=== PATIENT | male | born 1955 | race Caucasian/White ===

== ENCOUNTER → 2016-12-22 | Outpatient (CLI) | payer BC ==
[2016-12-22 08:47] LABS: Blood Urea Nitrogen 18 mg/dL (9-20); Non-African American GFR(MDRD) >60 (>60 ml/min/1.73 sqM)
--- NOTE | 2016-12-22 09:54 | CT ---
EXAMINATION TYPE: CT ChestAbdPelvis w con DATE OF EXAM: 12/22/2016 9:26 AM COMPARISON: CT chest 07/11/2016 HISTORY: Lung CA CT DLP: 552.6 mGycm CONTRAST: CT scan of the chest, abdomen and pelvis is performed with Oral Contrast and with IV Contrast, patien t injected with 100 mL of Omnipaque 300. CT Chest: LUNGS: There is confluent nodular density within the right lung apex measuring 1.2 cm and appears to have been present previously may reflect an area of scarring. Bandlike area of infiltrate seen previo usly within the right mid lung zone has resolved. Mild basilar compressive atelectasis seen. Emphysem atous changes noted. MEDIASTINUM: There is dramatic improvement in mediastinal adenopathy including the right paratracheal region with near complete resolution. Near-complete resolution pretracheal adenopathy. Near-complete resolution AP window adenopathy. Markedly improved subcarinal adenopathy currently measuring 1.9 cm versus 2.3 cm previously. HILAR STRUCTURES: Marked reduction in right hilar adenopathy with lymph node measuring 1.8 cm versus previous conglomerate mass measuring 4.9 cm. OTHER: No significant abnormality. CONTRAST CT ABDOMEN AND PELVIS FINDINGS: LIVER/GB: No calcified gallstones. No space occupying hepatic lesion. Biliary tree is of normal ca liber. PANCREAS: No inflammation. No distinct mass. SPLEEN: No splenic enlargement. No lesion seen. ADRENALS: No nodule. No thickening. KIDNEYS/BLADDER: No hydronephrosis. No nephrolithiasis. No disctinct renal mass. BOWEL: Normal appendix. Normal bowel caliber. No inflammation. GENITAL ORGANS: No gross abnormality. LYMPH NODES: No greater than 1cm abdominal or pelvic lymph nodes are appreciated. AORTA: No significant abnormality. OSSEOUS STRUCTURES: No significant abnormality is seen. OTHER: No significant additional abnormality is seen. IMPRESSION: 1. Dramatic improvement in mediastinal and right hilar adenopathy as well as bandlike area of infiltr ate right midlung zone. 2. Right apical nodular density is likely in the basis of parenchymal scar.
== END | disposition home or self-care (01) ==
LOC: RADCTMAIN 08:01
PROVIDERS: ATTEND Internal Medicine Hematology & Oncology
DX: C34.90 Malignant neoplasm of unspecified part of unspecified bronchus or lung (principal); R59.1 Generalized enlarged lymph nodes
CPT/HCPCS: 82565; 84520; 71260; 74177; 36415; Q9967

== ENCOUNTER → 2017-01-10 | Outpatient (CLI) | payer BC ==
--- NOTE | 2017-01-10 21:52 | MR ---
EXAMINATION TYPE: MR brain wo/w con DATE OF EXAM: 01/10/2017 7:33 PM COMPARISON: MRI brain August 03, 2016. HISTORY: Lung cancer Jun 2016, R/O mets TECHNIQUE: Multiplanar, multisequence images of the brain and brainstem is performed without and with IV contras t, utilizing 13 mL intravenous MultiHance . FINDINGS: Diffusion weighted images demonstrate no evidence of a recent infarct or other diffusion ab normality. There is no worrisome extra-axial fluid collection. The ventricular system and cisternal spaces are normal in size and appearance. The brain volume is age appropriate. There are few scatte red foci of T2 hyperintensity seen throughout the white matter bilaterally. I estimate roughly 9-14 s cattered lesions. For reference there is elongated 6 mm right frontal periventricular lesion at level of lee radiata on axial image 21 that is stable. Midline structures demonstrate normal morphology. Somewhat empty sella is redemonstrated. The cranio cervical junction appears within normal limits. Post contrast images demonstrate no suspicious enhan cing intraparenchymal mass. Linear area of enhancement left superior cerebellar peduncle on axial aye ge 49 is suggestive of venous angioma. The dural venous sinuses appear patent. Some new dependent flu id right maxillary sinus is present on axial image 9 otherwise paranasal sinuses are clear. The globe s are intact bilaterally. IMPRESSION: 1. No new enhancing intraparenchymal foci are seen to suggest new intraparenchymal metastatic disease . 2. Mild nonspecific white matter changes presumed on basis of product of chronic small vessel ischemi c change felt stable. 3. Possible new right acute maxillary sinusitis, clinical correlation advised.
== END ==
LOC: RADMRIMAIN 18:27
PROVIDERS: ATTEND Radiology Radiation Oncology
DX: G93.9 Disorder of brain, unspecified (principal); C34.11 Malignant neoplasm of upper lobe, right bronchus or lung
CPT/HCPCS: 70553; A9577

== ENCOUNTER → 2017-03-28 | Outpatient (CLI) | payer BC ==
--- NOTE | 2017-03-28 09:17 | CT ---
EXAMINATION TYPE: CT ChestAbdPelvis w con DATE OF EXAM: 03/28/2017 COMPARISON: Previous study dated 12/22/2016. HISTORY: Lung CA CT DLP: 471.3 mGycm Automated exposure control for dose reduction was used. TECHNIQUE: Helical acquisition through the abdomen and pelvis was obtained without oral contrast but following the intravenous administration of 100 mL of Omnipaque 300. The data was formatted in the a xial, coronal and sagittal projections. FINDINGS: There is stable nodularity in the region of the right apex. The nodular mass measured previ ously at 11.8 mm this measured today at 14.4 mm. There is extensive emphysematous changes throughout the lungs. There are small bulla within the apice s. There has been improvement in the airspace disease in the right midlung. There is some minimal atelec tasis along the major fissure. No new parenchymal nodules are seen. There is no significant axillary adenopathy. There is minimal adenopathy in the aortopulmonary window . There has been continued reduction in the size of the right hilar adenopathy and on this examinatio n no definite adenopathy is seen. There is no pleural or pericardial fluid. The heart is not enlarged. Within the abdomen, the liver, spleen and gallbladder are normal. Both adrenal glands are normal. The pancreas is unremarkable. Both kidneys demonstrate function and appear morphologically normal. There is no significant retroperitoneal, iliac or inguinal adenopathy. There is some calcification within the prostate. The bladder is unremarkable. There is some diverticular change within the sigmoid colon. I do not see radiographic evidence of div erticulitis. Small bowel loops are normal. There is no free fluid and no free air identified. There is facet arthropathy in the lower lumbar spine. No bony destructive lesion is seen. IMPRESSION: 1. STABLE APICAL NODULAR DENSITY ON THE RIGHT. 2. UNCOMPLICATED DIVERTICULOSIS OF THE LEFT SIDE OF THE COLON. 3. CONTINUED IMPROVEMENT IN THE DEGREE OF ADENOPATHY IN THE RIGHT HILUM. 4. EMPHYSEMATOUS CHANGES THROUGHOUT THE LUNGS.
== END | disposition home or self-care (01) ==
LOC: RADCTMAIN 08:18
PROVIDERS: ATTEND Internal Medicine Hematology & Oncology
DX: C34.91 Malignant neoplasm of unspecified part of right bronchus or lung (principal); K57.90 Diverticulosis of intestine, part unspecified, without perforation or abscess without bleeding; J43.9 Emphysema, unspecified; R59.0 Localized enlarged lymph nodes
CPT/HCPCS: 71260; 74177; Q9967

== ENCOUNTER → 2017-07-11 | Outpatient (CLI) | payer OTHER ==
--- NOTE | 2017-07-11 09:46 | CT ---
EXAMINATION TYPE: CT ChestAbdPelvis w con DATE OF EXAM: 07/11/2017 COMPARISON: CT chest abdomen and pelvis March 28, 2017 and older study December 22, 2016. Original PET/CT O ctober 2015 HISTORY: Patient has no complaints at time of service. Follow up study for known lung CA. CT DLP: 471.3 mGycm. Automated Exposure Control for Dose Reduction was Utilized. CONTRAST: CT scan of the thorax, abdomen and pelvis is performed with oral and with IV Contrast, patient inject ed with 100 mL of Omnipaque 300. FINDINGS: LUNGS: There is moderate emphysematous change redemonstrated prominent in the upper lungs. There is r edemonstration of scarring and bleb formation in the right lung apex. More regular nodular scarring p osteriorly right lung apex near axial image 9 is unchanged from prior study, some residual neoplasm a t this level cannot be excluded measuring for reference 10 x 7 mm centrally, some abnormal hypermetab olic uptake was present on PET/CT where this level. Degree of soft tissue is improved from prior PET/ CT. There is persistent linear scarring in the right midlung. No new concerning parenchymal nodule or mass is present. No pleural effusion or pneumothorax is seen bilaterally. Tracheobronchial tree is p atent. MEDIASTINUM: There is local recurrence with new right paratracheal heterogeneous enhancing adenopathy measuring 2.0 x 1.5 cm on axial image 16 and coronal image 38. There is stable 1.6 x 1.0 cm right hi lar lymph node on axial image 23. There is stable irregular soft tissue pericarinal level extending a nterior to right lung bronchus on axial image 21 at area of large neoplasm on PET/CT. No cardiomegaly or pericardial effusion is seen. OTHER: No additional significant abnormality is seen. LIVER/GB: No significant abnormality is appreciated. PANCREAS: No significant abnormality is seen. SPLEEN: No significant abnormality is seen. ADRENALS: No significant abnormality is seen. KIDNEYS: No significant abnormality is seen. BOWEL: The oral contrast reaches level of cecum. There is no suspicious small or large bowel dilatati on. There is some contrast filled dilatation of the stomach. The amount of fecal material is somewhat prominent throughout the colon. Patient has very little intra-abdominal fat making evaluation bowel somewhat suboptimal. GENITAL ORGANS: Central zone calcifications are redemonstrated in normal size prostate gland. LYMPH NODES: No greater than 1cm abdominal or pelvic lymph nodes are appreciated. OSSEOUS STRUCTURES: There is facet arthropathy in the lower lumbar spine redemonstrated. OTHER: There is moderate mixed plaque in the mid to distal aorta extending into pelvic branch vessels . IMPRESSION: 1. Neoplastic recurrence is felt present as there is new right paratracheal heterogeneous enhancing m ass or adenopathy. 2. Incidental note is made of fairly moderate diffuse colonic fecal stasis. No bowel obstruction is s een.
== END | disposition home or self-care (01) ==
LOC: RADCTMAIN 08:03
PROVIDERS: ATTEND Internal Medicine Hematology & Oncology
DX: C34.91 Malignant neoplasm of unspecified part of right bronchus or lung (principal)
CPT/HCPCS: 71260; 74177; Q9967

== ENCOUNTER → 2017-08-20 | Outpatient (CLI) | payer OTHER ==
--- NOTE | 2017-08-20 16:03 | PE ---
EXAMINATION TYPE: PET CT fusion skull to thigh DATE OF EXAM: 08/20/2017 CLINICAL HISTORY: Lung cancer progress study. Completed chemotherapy and radiation treatment in 2015. TECHNIQUE: Following the intravenous administration of 14.844 mCi of F-18 FDG, whole body images ar e performed from the skull base to the midthigh. Images are reviewed on the computer in the coronal, axial, and sagittal planes. Reconstructed rotating images are created on independent workstation an d reviewed on the computer. A non-contrast CT is performed in conjunction with the PET scan. COMPARISON: Prior PET/CT August 07, 2016. Most recent CT chest abdomen and pelvis July 11, 2017 . FINDINGS: SKULL BASE AND NECK: No suspicious hypermetabolic uptake in the neck is identified. CHEST, MEDIASTINUM, AND HILAR REGION: There is background moderate emphysematous change redemonstrate d. There is some increased opacity felt to reflect scarring or posttreatment change in the right lung apex redemonstrated. No suspicious hypermetabolic uptake at this level is present. Corresponding to recent CT there is right paratracheal mass measuring 2.1 x 1.7 cm on axial image 79 that shows hypermetabolic uptake, max SUV is 6.7. Additional prominent lymph nodes right hilar region and pericarinal/subcarinal level do not show abnormal hypermetabolic uptake on current study. No additional areas of suspicious hypermetabolic uptake are identified currently. ABDOMEN AND PELVIS: No suspicious hypermetabolic uptake is seen in the abdomen or pelvis. Normal excr etion in the collecting systems, ureter, and bladder is noted. OSSEOUS STRUCTURES: No suspicious hypermetabolic uptake is seen in osseous structures. OTHER CT: There is moderate calcified plaque in distal abdominal aorta extending into iliac branch ve ssels. Some central zone calcifications are seen in prostate gland. Scattered pelvic phleboliths are redemon strated. There is facet arthropathy lower lumbar spine redemonstrated. Patient is once again noted to have little intra-abdominal fat. IMPRESSION: Local neoplastic recurrence right paratracheal region is confirmed as suspected on recent CT.
== END ==
LOC: RADPETMAIN 12:30
PROVIDERS: ATTEND Internal Medicine Hematology & Oncology
DX: C34.91 Malignant neoplasm of unspecified part of right bronchus or lung (principal)
CPT/HCPCS: 78815; A9552

== ENCOUNTER → 2017-12-14 | Outpatient (CLI) | payer OTHER ==
--- NOTE | 2017-12-14 13:40 | CT ---
EXAMINATION TYPE: CT ChestAbdPelvis w con DATE OF EXAM: 12/14/2017 COMPARISON: 10/04/2017 and 08/20/2017 HISTORY: 62-year-old male follow-up Lung CA. Patient completed chemoradiation in August 2016. TECHNIQUE: Contiguous axial scanning of the chest, abdomen, and pelvis performed with IV Contrast, pa tient injected with 100 mL of Omnipaque 300. Delayed images through the kidneys were obtained. Devine l/sagittal reconstructions performed. CT DLP: 1172 mGycm Automated exposure control for dose reduction was used. FINDINGS: Chest: The heart is normal size without pericardial effusion. Aorta is normal caliber with mild atherosclerotic arch calcifications and conventional arch vessel br anching anatomy. The previous site of treated disease along the right paratracheal region shows similar mild soft tiss ue thickening as compared to 10/04/2017. Right-sided perihilar bronchovascular soft tissue thickening remains unchanged probably relating to radiation therapy change. However, there is a new right suprahilar right upper lobe pulmonary nodule measuring 1.3 cm in the pr evious right midlung pulmonary nodule shows interval enlargement now measuring 1.8 cm versus 7 mm, pr eviously. Interstitial densities and patchy groundglass extending from the right hilum up into the apex is unch anged, likely post radiation therapy change. Left lung and pleural space are clear. ABDOMEN: Liver is upper limits of normal in size. No focal lesion or biliary ductal dilatation. Portal vein is patent. Gallbladder, adrenal glands, kidneys, spleen, and pancreas appear within normal limits. Moderate atherosclerotic calcifications within the abdominal aorta and iliac arteries. Prominent maurilio on artifacts along the lower abdomen. No mesenteric or retroperitoneal lymphadenopathy identified There is moderate stool burden without pericolonic inflammatory change. Pelvis: Bladder is urine distended. Prostate gland is enlarged at 5.5 cm wide with central prostatic calcific ations. Pelvic phlebolith are noted. No abnormal fluid collection in the pelvis or pelvic lymphadenop athy seen. Bones: Degenerative changes left SI joint and lower lumbar spine. No osseous destructive process. IMPRESSION: 1. INTERVAL ENLARGEMENT OF THE PREVIOUS RIGHT MIDLUNG PULMONARY NODULE (NOW 1.8 CM VERSUS 7 MM, PREVI OUSLY). IN ADDITION, THERE IS A NEW RIGHT SUPRAHILAR PULMONARY NODULE MEASURING 1.3 CM. FINDINGS CONC ERNING FOR RECURRENCE/METASTATIC DISEASE. 2. THE PREVIOUS TREATED SITE OF RECURRENCE ALONG THE RIGHT PARATRACHEAL REGION IS UNCHANGED. 3. STABLE RIGHT-SIDED PERIHILAR BRONCHOVASCULAR THICKENING AND INTERSTITIAL CHANGES EXTENDING UP TO T HE RIGHT APEX LIKELY RELATED TO POSTTREATMENT CHANGE.
== END | disposition home or self-care (01) ==
LOC: RADCTMAIN 12:22
PROVIDERS: ATTEND Internal Medicine Hematology & Oncology
DX: C34.91 Malignant neoplasm of unspecified part of right bronchus or lung (principal); R91.1 Solitary pulmonary nodule; J98.09 Other diseases of bronchus, not elsewhere classified
CPT/HCPCS: 71260; 74177; Q9967

== ENCOUNTER → 2018-03-06 | Outpatient (CLI) | payer OTHER ==
[2018-03-06 07:42] LABS: Blood Urea Nitrogen 22 mg/dL (9-20)
--- NOTE | 2018-03-06 10:13 | CT ---
EXAMINATION TYPE: CT ChestAbdPelvis w con DATE OF EXAM: 03/06/2018 COMPARISON: CT chest abdomen and pelvis December 14, 2017 and older studies. PET/CT August 20, 2017 and older studies HISTORY: Head chemotherapy 1 month ago Follow up study for known lung CA. CT DLP: 431.2 mGycm. Automated Exposure Control for Dose Reduction was Utilized. CONTRAST: CT scan of the thorax, abdomen and pelvis is performed with IV Contrast, patient injected with 100 mL of Isovue 300. FINDINGS: LUNGS: There is background chronic emphysematous change redemonstrated most prominent in the apices. There is right apical and upper lung scarring most prominent centrally. There is increase in size in spiculated nodule periphery of the right upper lobe measuring 1.9 x 1.0 cm axial image 19. There is n ew 11 x 5 mm nodule central to this axial image 19. Left lung remains clear. No pleural effusion or p neumothorax is seen. MEDIASTINUM: There is interval worsening of right hilar malignancy with irregular tissue invading med iastinum measuring approximately 5.7 x 4.5 cm axial image 23, there is encasement of right lower lobe bronchus identified. Craniocaudal length is likely close to 9.0 cm coronal image 49 with extensive r ight infrahilar component now present. Mediastinal Invasion to subcarinal region is felt present. Sig nificant progression from most recent CTs and PET/CT is felt present. There is new nodular suspicious studding right mediastinum or more likely pleural lesion adjacent to posterior aspect of the right a trium measuring 1.9 x 1.4 cm axial image 33. There is new small to borderline moderate-sized pericardial effusion. No cardiomegaly is present. OTHER: Small degree of bilateral gynecomastia is redemonstrated. LIVER/GB: No significant abnormality is appreciated. PANCREAS: No significant abnormality is seen. SPLEEN: No significant abnormality is seen. ADRENALS: No significant abnormality is seen. KIDNEYS: No significant abnormality is seen. BOWEL: No significant abnormality is seen. GENITAL ORGANS: No gross abnormality seen. LYMPH NODES: No greater than 1cm abdominal or pelvic lymph nodes are appreciated. Nonspecific promine nt but subcentimeter right groin lymph nodes are seen near axial image 117. OSSEOUS STRUCTURES: There is facet arthropathy lower lumbar levels.. OTHER: There is moderate calcified plaque of aorta extending into pelvic branch vessels. IMPRESSION: Marked interval progression from most recent CT with significant enlargement in right hil ar mass/adenopathy now measuring almost 9 cm craniocaudal dimension. Mediastinal invasion is present. There is progression in size of the peripheral right upper lobe nodule. There is new nodularity iden tified.
== END | disposition home or self-care (01) ==
LOC: RADCTMAIN 06:51
PROVIDERS: ATTEND Internal Medicine Hematology & Oncology
DX: C34.91 Malignant neoplasm of unspecified part of right bronchus or lung (principal); R91.8 Other nonspecific abnormal finding of lung field; Z92.21 Personal history of antineoplastic chemotherapy
CPT/HCPCS: 82565; 84520; 71260; 74177; 36415; Q9967

== ENCOUNTER → 2018-05-19 | Outpatient (CLI) | payer OTHER ==
[2018-05-19 12:03] LABS: Blood Urea Nitrogen 19 mg/dL (9-20)
--- NOTE | 2018-05-19 15:35 | CT ---
EXAMINATION TYPE: CT ChestAbdPelvis w con DATE OF EXAM: 05/19/2018 INDICATION: Small cell lung CA COMPARISON: 03/06/2018 CT DLP: 414.7 mGycm CONTRAST: Performed with Oral Contrast and with IV Contrast, patient injected with 100 ml mL of Isovue 300. TECHNIQUE: Axial images at 5 mm thick sections. Reconstructed images in the coronal plane. Delayed images through the kidneys. FINDINGS: CT CHEST: Portion of the thyroid visualized is normal. Emphysematous changes are present. There is a right upper lobe mass may have 1.6 x 2.5 cm. This is sl ightly larger than the comparison. Diffuse soft tissue swelling is in the perihilar region. Some fibr osis may be within the right perihilar region. There is a mass in the right infrahilar region measuri ng 2.8 x 3.0 cm on the current exam lung windows. Series 4 image 30. This is larger than the 2.3 x 2. 7 cm previously. Some pneumonitis changes in the posterior mid left lung. Series 4 image 30. Small am ount of increased densities in the posterior right lung. Series 4 image 35. There are some additional scattered smaller areas of pneumonitis change in the left midlung, series 4 image 33. Metastatic di sease at these levels is not excluded. Additional consolidative pneumonitis is in the right lung base . Metastatic disease should be considered as well. Some mediastinal lymph nodes may be present in the pretracheal space and subcarinal space measuring 1 .5 and 1.0 cm in size. This is better visualized than comparison. Series 3 image 27. The ascending aorta diameter at the level of the main pulmonary artery is 3.3 cm. The main pulmonary artery diameter at the bifurcation is 2.[address] ABDOMEN: Liver: Normal Spleen: Normal Pancreas: Normal Adrenal glands: The adrenal glands are normal. Gallbladder: Normal Kidneys: No masses are evident. No hydronephrosis is present. No cysts are present. Delayed images were obtained through the kidneys, which remain unremarkable. Aorta: Vascular calcification is within the aorta. AP diameter of the mid abdominal aorta is 1.9 cm. Inferior vena cava: Normal. CT PELVIS: Loops of bowel within the abdomen and pelvis are normal. There are loops of bowel which are incom pletely distended or lack oral contrast limiting their evaluation. Appendix: Not identified. No dilated tubular structures or inflammatory changes are evident. Urinary bladder: Normal. Genitourinary structures: Prostate contains calcification. Prostate borders are somewhat indistinct. Osseous structures: A mixed lytic sclerotic lesion adjacent to the posterior right sacroiliac joint w ithin the ileum may be present. Series 3 image 95 bone windows. This was present previously and appea rs stable. Note is made of facet degenerative changes. Some increased sclerosis may be within the pos terior right third rib and fourth rib. Metastatic disease is not excluded there. This however appears stable from comparison. IMPRESSIONS: 1. Increasing size nodularity right infrahilar and right perihilar soft tissue densities. 2. Continued mediastinal soft tissue diffuse density suspicious for neoplasm which is unchanged. 3. Underlying enlarged lymphadenopathy within the mediastinum may be visualized on the current exam. 4. Increasing infiltrative opacities in the left lung and a large infiltrative process at the right l christelle base. Neoplastic processes should be considered. Other etiologies however including an infectious etiology would be within the differential.
== END | disposition home or self-care (01) ==
LOC: RADCTMAIN 11:10
PROVIDERS: ATTEND Internal Medicine Hematology & Oncology
DX: C34.91 Malignant neoplasm of unspecified part of right bronchus or lung (principal); R59.0 Localized enlarged lymph nodes; R91.8 Other nonspecific abnormal finding of lung field
CPT/HCPCS: 82565; 84520; 71260; 74177; 36415; Q9967

== ENCOUNTER → 2018-08-21 | Outpatient (CLI) | payer OTHER ==
--- NOTE | 2018-08-21 13:18 | CT ---
EXAMINATION TYPE: CT ChestAbdPelvis w con DATE OF EXAM: 08/21/2018 COMPARISON: 05/19/2018 and 03/06/2018 HISTORY: 62-year-old male follow up of lung cancer TECHNIQUE: Contiguous axial scanning of the chest, abdomen, and pelvis performed with IV Contrast, pa tient injected with 100 mL of Isovue 300. Delayed images through the kidneys were obtained. Coronal/s agittal reconstructions performed. CT DLP: 477.7 mGycm Automated exposure control for dose reduction was used. FINDINGS: Chest: Heart normal size without pericardial effusion. Aorta normal caliber with mild atherosclerotic arch calcifications and conventional arch vessel [facility] anatomy. Redemonstrated mid to lower right paratracheal and contiguous right perihilar soft tissue thickening overall similar to slightly improved as compared to the 03/06/2018 exam. Volume loss with peribronchia l opacity extending up along the right suprahilar region to the right apex is unchanged and suggests post radiation therapy change. However, the abnormal soft tissue mass obliterating the bronchus base atelectasis in the right lower lobe is redemonstrated. It is lobulated in shape measuring up to 4.3 cm wide and 3.2 cm AP (versus 3. 3 cm wide and 2.4 cm AP on 05/19/2018). Approximately 2.7 x 2.3 cm on 03/06/2018. Patchy and confluent areas of groundglass in the right greater than left lower lobes has largely brittaney red with some residual tree-in-bud opacities especially in the right lower lobe. Some minimal groundg lass nodularity remains at the posterior right costophrenic angle. The soft tissue thickening along t he superior aspect of the right major fissure at the upper to mid lung level shows improvement. No pleural effusion. Moderate underlying COPD. ABDOMEN: Small hiatal hernia. No focal liver lesion or biliary ductal dilatation. Portal venous system is patent. Gallbladder, adrenal glands, kidneys, spleen, and pancreas appear within normal limits. Moderate atherosclerotic calcifications infrarenal abdominal aorta. No dilated small bowel, free fluid, or free air. No mesenteric or retroperitoneal lymphadenopathy. Moderate stool burden. No pericolonic inflammatory change. Pelvis: Bladder urine distended. Central prosthetic calcifications. Prostate gland measures 5.0 cm wide. No a bnormal fluid collection in the pelvis or pelvic lymphadenopathy identified. Pelvic phleboliths. Bones: Mild degenerative changes at the hips. Degenerative changes left SI joint. No osseous destructive pro cess seen. IMPRESSION: 1. INCREASED SOFT TISSUE BULK AND SIZE OF THE RIGHT LOWER LOBE MASS WHICH OBLITERATES THE BRONCHUS BA SALIS. This is now lobulated measuring up to 4.3 x 3.2 cm (versus 3.3 x 2.4 cm on 05/19/2018 and 2.7 x 2.3 cm on 03/06/2018). 2. Similar right paratracheal, right hilar, and right suprahilar soft tissue thickening with volume l oss and peribronchovascular opacity extending up to the right apex suggestive of posttreatment change . 3. Much of the patchy and confluent groundglass densities in the right greater than left lower lobes has resolved. There is some residual tree-in-bud and groundglass nodules that remain, particularly at the right base. This could represent some residual areas of pneumonitis or bronchiolitis. This can c ontinue to be reassessed at follow-up.
== END ==
LOC: RADCTMAIN 10:35
PROVIDERS: ATTEND Internal Medicine Hematology & Oncology
DX: C34.91 Malignant neoplasm of unspecified part of right bronchus or lung (principal)
CPT/HCPCS: 71260; 74177; Q9967

== ENCOUNTER → 2018-10-02 | Outpatient (CLI) | payer OTHER ==
--- NOTE | 2018-10-02 13:42 | CT ---
EXAMINATION TYPE: CT chest w con DATE OF EXAM: 10/02/2018 COMPARISON: Prior CT chest abdomen pelvis 08/21/2018 HISTORY: Lung cancer CT DLP: 280 mGycm Automated exposure control for dose reduction was used. CONTRAST: CT scan of the chest is performed with IV Contrast, patient injected with 100 mL of Isovue 300. FINDINGS: LUNGS: The right upper lobe lung mass is increased in size and now measures approximately 5.7 cm in t ransverse dimension abutting the MEDIASTINUM: There is level esophagus and left atrium, pulmonary vein on the right by approximately 4 cm x 4.6 cm and shows peripheral enhancement, mixed lower density centrally. There is a lobulated co ntour with extension towards the right hilum, abnormal soft tissue density present at the right hilar region similar to prior exam extending into the upper mediastinum adjacent to the trachea as on prio r. Interstitial changes are present in the upper lobe with some parenchymal consolidation, air bronch ograms compatible with probable post radiation therapy to the right hilum. Some scattered nodular den sities are subcentimeter in size are present in the right lower lobe. No pleural or pericardial effus ion. AORTA: No additional significant abnormality is seen. OTHER: No significant interval change. IMPRESSION: Interval progression of patient's right lower lobe lung mass with possible metastasis mo re peripherally.
== END ==
LOC: RADCTMAIN 11:34
PROVIDERS: ATTEND Internal Medicine Hematology & Oncology
DX: C34.91 Malignant neoplasm of unspecified part of right bronchus or lung (principal)
CPT/HCPCS: 71260; Q9967

== ENCOUNTER → 2018-12-18 | Outpatient (CLI) | payer OTHER ==
[2018-12-18 08:59] LABS: Blood Urea Nitrogen 22 mg/dL (9-20)
--- NOTE | 2018-12-18 10:50 | CT ---
EXAMINATION TYPE: CT ChestAbdPelvis w con DATE OF EXAM: 12/18/2018 COMPARISON: CT chest abdomen and pelvis August 21, 2018 and older CTs. PET/CT August 20, 2017. HISTORY: Follow up for known small cell lung CA. Originally diagnosed in 2016. CT DLP: 468.8 mGycm. Automated Exposure Control for Dose Reduction was Utilized. CONTRAST: CT scan of the thorax, abdomen and pelvis is performed with IV Contrast, patient injected with 100 mL of Isovue 300. FINDINGS: LUNGS: Persistent posterior right apical scarring extending inferiorly and medially. Spiculated right infrahilar neoplasm is diminished in size from most recent full body CT measuring roughly 2.3 x 1.4 cm on axial image 32 versus 4.3 x 2.4 cm prior study image 29. No new nodules or masses are evident. Left lung remains clear. No pleural effusion or pneumothorax is seen. MEDIASTINUM: There is persistent confluent right hilar soft tissue mass encasing right lung bronchus seen best near axial image 23 causing significant mass effect encasing the right pulmonary artery wit h persistent narrowing of right upper lung bronchi. No significant change in appearance near image 23 versus prior study. Suprahilar extension encases the draining azygos vein similar to prior. No cardi omegaly or pericardial effusion is seen. OTHER: Is stable small degree of bilateral gynecomastia LIVER/GB: No significant abnormality is appre ciated. PANCREAS: No significant abnormality is seen. SPLEEN: No significant abnormality is seen. ADRENALS: No significant abnormality is seen. KIDNEYS: No significant abnormality is seen. BOWEL: Oral contrast does not reach colonic level. No suspicious small or large bowel dilatation. GENITAL ORGANS: Central calcifications in prostate gland measuring upper limits of normal are redemon strated. Scattered bilateral pelvic phleboliths redemonstrated. LYMPH NODES: No greater than 1cm abdominal or pelvic lymph nodes are appreciated. OSSEOUS STRUCTURES: No significant abnormality is seen. OTHER: Moderate to severe calcified plaque of the infrarenal abdominal aorta extends into iliac branc h vessels. IMPRESSION: 1. Stable confluent right hilar adenopathy/neoplasm with mediastinal extension as detailed above. Imp roving right infrahilar/lower lobe central neoplasm/nodule. No new nodules or adenopathy identified. No new metastatic disease seen.
== END | disposition home or self-care (01) ==
LOC: RADCTMAIN 08:01
PROVIDERS: ATTEND Internal Medicine Hematology & Oncology
DX: C34.91 Malignant neoplasm of unspecified part of right bronchus or lung (principal)
CPT/HCPCS: 82565; 84520; 71260; 74177; 36415; Q9967

== ENCOUNTER → 2019-01-18 | Outpatient (CLI) | payer OTHER ==
--- NOTE | 2019-01-18 14:06 | XR ---
"EXAMINATION TYPE: XR chest 2V DATE OF EXAM: 01/18/2019 COMPARISON: 09/14/2016 TECHNIQUE: PA and lateral views submitted. HISTORY: Lung cancer and shortness of breath FINDINGS: There is a right lower lobe consolidation. Emphysematous changes involving the right lung apex with) tracheal soft tissue fullness. This may be related to previously noted CT findings of right hilar yulisa nopathy\\neoplasm with mediastinal extension. Area of lower lobe density appears new from the CT scan 12/18/2018. Report called to referring clinician. IMPRESSION: 1. Area of consolidation the right lower lobe appears new relative to the recent scan may represent d eveloping pneumonia. Underlying neoplasm not excluded. Right perihilar and right paratracheal soft ti ssue fullness appears similar to the reported findings noted by CT scan 12/18/2018. A Yellow level critical message alert has been initiated for Uri Jansen MD via the [employer] 36 0 | Critical Results System on 01/18/2019 2:03 PM. This message alert has been sent to Uri Jansen MD via the preferences provided by the clinician for the receipt of Radiology Critical Findings. [facility] ID [id number]."
== END | disposition home or self-care (01) ==
LOC: RADXRMAIN 13:33
PROVIDERS: ATTEND Internal Medicine Hematology & Oncology
DX: J18.1 Lobar pneumonia, unspecified organism (principal); R06.00 Dyspnea, unspecified; C34.91 Malignant neoplasm of unspecified part of right bronchus or lung; E03.9 Hypothyroidism, unspecified; E22.2 Syndrome of inappropriate secretion of antidiuretic hormone
CPT/HCPCS: 71046

== ENCOUNTER → 2019-01-22 | Outpatient (CLI) | payer OTHER ==
--- NOTE | 2019-01-22 09:17 | XR ---
EXAMINATION TYPE: XR chest 2V DATE OF EXAM: 01/22/2019 COMPARISON: 01/18/2019 TECHNIQUE: PA and lateral views submitted. HISTORY: Lung cancer FINDINGS: There is a right lower lobe consolidation. Emphysematous changes involving the right lung apex with) tracheal soft tissue fullness. This may be related to previously noted CT findings of right hilar yulisa nopathy neoplasm with mediastinal extension. Area of lower lobe density appears new from the CT scan 12/18/2018. Report called to referring clinician. Chronic deformity of the left clavicle. IMPRESSION: 1. Persistent right lower lobe consolidation with right perihilar soft tissue mass or adenopathy. Con solidation involving the right lung base may represent pneumonia Neoplasm not excluded.
== END | disposition home or self-care (01) ==
LOC: RADXRMAIN 08:19
PROVIDERS: ATTEND Internal Medicine Hematology & Oncology
DX: C34.91 Malignant neoplasm of unspecified part of right bronchus or lung (principal); E03.9 Hypothyroidism, unspecified; E22.2 Syndrome of inappropriate secretion of antidiuretic hormone; R06.00 Dyspnea, unspecified
CPT/HCPCS: 71046

== ENCOUNTER → 2019-04-09 | Outpatient (CLI) | payer OTHER ==
--- NOTE | 2019-04-09 13:32 | CT ---
EXAMINATION TYPE: CT ChestAbdPelvis w con DATE OF EXAM: 04/09/2019 COMPARISON: CT chest abdomen and pelvis December 18, 2018 and older CTs. PET/CT August 20, 2017 HISTORY: Lung CA follow up CT DLP: 495.3 mGycm. Automated Exposure Control for Dose Reduction was Utilized. CONTRAST: CT scan of the thorax, abdomen and pelvis is performed with oral and with IV Contrast, patient inject ed with 100 mL of Isovue 300. FINDINGS: LUNGS: Persistent posterior medial right apical scarring axial image 11 extending inferiorly and medi ally to the right hilar level where there is indistinct soft tissue narrowing right middle lobe bronc hus axial image 25 at infrahilar region and narrowing of right upper lobe bronchus axial image 19 all redemonstrated. Extension to the shawn axial image 20 remains present without significant interval change from most recent CT. There is new right lower lobe peribronchial wall thickening with low dens e nodularity measuring 2.1 x 1.1 cm on axial image 30 that shows marked inferior posterior and medial lobulated extension new from recent CT. MEDIASTINUM: There are no new greater than 1 cm hilar or mediastinal lymph nodes. No cardiomegaly or pericardial effusion is seen. OTHER: Small degree of bilateral gynecomastia is redemonstrated LIVER/GB: No significant abnormality is appreciated. PANCREAS: No significant abnormality is seen. SPLEEN: No significant abnormality is seen. ADRENALS: No significant abnormality is seen. KIDNEYS: No significant abnormality is seen. BOWEL: Oral contrast extends to the proximal transverse colon. No suspicious small or large bowel dil atation. Some prominence of fecal material in the rectum. GENITAL ORGANS: No gross abnormality seen. LYMPH NODES: No greater than 1cm abdominal or pelvic lymph nodes are appreciated. OSSEOUS STRUCTURES: Facet arthropathy lower lumbar spine. OTHER: Moderate calcified plaque of the distal abdominal aorta extends into iliac branch vessels. IMPRESSION: Progression of right infrahilar low dense nodularity or masslike consolidation worrisome for local neoplastic progression. Consider repeat PET/CT to further evaluate.
== END | disposition home or self-care (01) ==
LOC: RADCTMAIN 09:41
PROVIDERS: ATTEND Internal Medicine Hematology & Oncology
DX: C34.91 Malignant neoplasm of unspecified part of right bronchus or lung (principal)
CPT/HCPCS: 71260; 74177; Q9967

== ENCOUNTER → 2019-06-09 | Outpatient (CLI) | payer OTHER ==
--- NOTE | 2019-06-11 14:08 | PE ---
Nuclear medicine PET/CT HISTORY: Right lung carcinoma, subsequent, C34.91 Patient received 12.8 mCi F-18 FDG intravenously in delayed scanning was performed from the skull bas e to the mid thighs. Localization and attenuation correction CT scan was performed. Correlation to prior chest CT 04/09/2019, prior nuclear medicine PET/CT 08/20/2017 neck and CHEST: There is no evidence for supraclavicular or cervical adenopathy. Abnormal soft tissue in the retrocaval pretracheal region extending to the right hilum is noted, this is progressed conor red to prior PET/CT, there is extension of soft tissue into the right upper lobe along the pleural ma rgin medially, there is associated hypermetabolic uptake present within the suprahilar soft tissue on the right, SUV is 5.6. There is a satellite nodule present in the right mid lung measuring approxima tely 14 mm, SUV is 3.4. Infrahilar nodularity is also present extending into the right lower lobe, MIMS V approximately 5.1, there may be mucus plugging in the right lower lobe, soft tissue encases segment al bronchi. No pleural or pericardial effusion. ABDOMEN: No suspicious hypermetabolic uptake. No evident adrenal mass. No retroperitoneal adenopathy or liver mass. Osseous structures show no suspicious uptake. IMPRESSION: Findings compatible with recurrence in the right lung.
== END | disposition home or self-care (01) ==
LOC: RADPETMAIN 10:26
PROVIDERS: ATTEND Internal Medicine Hematology & Oncology
DX: C34.31 Malignant neoplasm of lower lobe, right bronchus or lung (principal)
CPT/HCPCS: 78815; A9552

== ENCOUNTER → 2019-09-17 | Outpatient (CLI) | payer OTHER ==
[2019-09-17 07:59] LABS: African American GFR (CKD) >90 (>60 ml/min/1.73 sqM); Blood Urea Nitrogen 13 mg/dL (9-20); Non-African American GFR(CKD) >90 (>60 ml/min/1.73 sqM)
--- NOTE | 2019-09-17 10:13 | CT ---
EXAMINATION TYPE: CT ChestAbdPelvis w con DATE OF EXAM: 09/17/2019 COMPARISON: CT chest abdomen pelvis 04/09/[address] fusion 06/09/2019 HISTORY: Lung cancer CT DLP: 980 mGycm CONTRAST: CT scan of the chest, abdomen and pelvis is performed with Oral Contrast and with IV Contrast, patien t injected with 100 mL of Isovue 300. CT Chest: LUNGS: There is increasing right suprahilar mass measuring 5.9 x 3.6 x 3.3 cm with encasement of the right upper lobe bronchus and associated medial pleural thickening. Previous measurement is estimated at 2.6 x 2.2 cm. There is also an enlarging adjacent pulmonary mass measuring 2.7 x 2.2 cm versus 1. 1 x .7 cm. Enlarging right infrahilar pulmonary mass and measures 3.9 x 3.4 cm versus 1.2 x 1.5 cm. A dditional pulmonary nodules right lower lobe remains stable. Associated bronchiectasis seen. The left lung is clear. Mild right-sided volume loss. Upper lobe emphysematous change. MEDIASTINUM: Thoracic aorta is of normal caliber. The heart is not enlarged. Right paratracheal yulisa nopathy measures 1.3 x 2.3 cm versus 1.0 x 2.2 cm previously HILAR STRUCTURES: Right hilar adenopathy difficult to evaluate given the soft tissue mass component. OTHER: No significant abnormality. CONTRAST CT ABDOMEN AND PELVIS FINDINGS: LIVER/GB: No calcified gallstones. No space occupying hepatic lesion. Biliary tree is of normal ca liber. PANCREAS: No inflammation. No distinct mass. SPLEEN: No splenic enlargement. No lesion seen. ADRENALS: No nodule. No thickening. KIDNEYS/BLADDER: No hydronephrosis. No nephrolithiasis. No distinct renal mass. BOWEL: Normal appendix. Normal bowel caliber. No inflammation. GENITAL ORGANS: No gross abnormality. LYMPH NODES: No greater than 1cm abdominal or pelvic lymph nodes are appreciated. AORTA: No significant abnormality. OSSEOUS STRUCTURES: Sclerotic T2 segment noted. This is of uncertain etiology. Metastatic disease not excluded. OTHER: No significant additional abnormality is seen. IMPRESSION: 1. Ration of disease as noted with right suprahilar mass and adjacent mass noted. Right infrahilar ma ss is also enlarged in size with increasing right lower lobe nodular components and bronchiectasis. 2. Sclerotic T2 segment. Metastatic disease is not excluded.
== END | disposition home or self-care (01) ==
LOC: RADCTMAIN 07:03
PROVIDERS: ATTEND Internal Medicine Hematology & Oncology
DX: J47.9 Bronchiectasis, uncomplicated (principal); R91.8 Other nonspecific abnormal finding of lung field; C34.91 Malignant neoplasm of unspecified part of right bronchus or lung
CPT/HCPCS: 82565; 84520; 71260; 74177; 36415; Q9967 ×2

== ENCOUNTER → 2019-11-12 | Outpatient (CLI) | payer OTHER ==
[2019-11-12 12:41] LABS: African American GFR (CKD) >90 (>60 ml/min/1.73 sqM); Blood Urea Nitrogen 17 mg/dL (9-20); Non-African American GFR(CKD) >90 (>60 ml/min/1.73 sqM)
--- NOTE | 2019-11-12 15:23 | CT ---
EXAMINATION TYPE: CT ChestAbdPelvis w con DATE OF EXAM: 11/12/2019 COMPARISON: CT September 17, 2019 and multiple older CTs. PET CT June 09, 2019 HISTORY: Lung cancer follow up. CT DLP: 457.1 mGycm. Automated Exposure Control for Dose Reduction was Utilized. CONTRAST: CT scan of the thorax, abdomen and pelvis is performed with oral and with IV Contrast, patient inject ed with 100 mL of Isovue M300. FINDINGS: LUNGS: Background moderate underlying emphysematous change most prominent in the upper lungs is redem onstrated. There is persistent right hilar masslike consolidation invading mediastinum encasing right main stem bronchus axial image 20. The right midlung low dense mass axial image [address] is signific antly improved along fissure measuring 1.1 x 0.7 cm currently. Neoplastic extension medial suprahilar region with ill-defined consolidation axial image 16 shows slightly less prominent appearance to jorge or study image 14 measuring 5.3 x 2.7 cm current study versus 5.6 x 3.2 cm prior study. Some persiste nt right upper lung and middle lobe central bronchial narrowing axial images 19 and 25 respectively w ith improvement in right lower lobe nodule or neoplasm measuring 2.4 x 2.4 cm current study image 29 versus 4.0 x 3.4 cm prior study image 26. Lobulated neoplastic extension inferior to this is redemons trated and improved with moderate bronchiectasis and mucous plugging thought present stable or slight ly improved from prior. No new nodules or masses. Left lung remains clear. MEDIASTINUM: There are no new greater than 1 cm hilar or mediastinal lymph nodes. Neoplastic extens ion to level of shawn and invading subcarinal region is thought present from right hilar neoplasm. N o cardiomegaly or pericardial effusion is seen. LIVER/GB: No significant abnormality is appreciated. PANCREAS: No significant abnormality is seen. SPLEEN: No significant abnormality is seen. ADRENALS: No significant abnormality is seen. KIDNEYS: No significant abnormality is seen. BOWEL: Oral contrast reaches mid transverse colon. No suspicious small or large bowel dilatation. Hubert e prominence of fecal material in the rectum redemonstrated. GENITAL ORGANS: Central calcifications in prostate gland. Some prominence of the right pelvic gonadal vessels axial image 109 on current study is new from prior study. Etiology uncertain. LYMPH NODES: No greater than 1cm abdominal or pelvic lymph nodes are appreciated. OSSEOUS STRUCTURES: Demineralization with slight scoliotic curvature upper to mid thoracic spine. Fac et arthropathy lower lumbar spine. Old fracture left mid clavicle redemonstrated. OTHER: Small degree of bilateral subareolar gynecomastia redemonstrated. Moderate calcified plaque of the aorta extending into common iliac branch vessels. IMPRESSION: Positive treatment response as detailed above. Diminishing size neoplasm without new lucia picious mass or adenopathy.
== END | disposition home or self-care (01) ==
LOC: RADCTMAIN 11:54
PROVIDERS: ATTEND Internal Medicine Hematology & Oncology
DX: C34.91 Malignant neoplasm of unspecified part of right bronchus or lung (principal)
CPT/HCPCS: 82565; 84520; 71260; 74177; 36415; Q9967 ×2

== ENCOUNTER 2020-01-09 12:27 | Emergency (ER) | payer OTHER ==
[2020-01-09 12:36] VITALS: BP 137/87; PULSE 91; RESP 18; TEMP 97.7
[2020-01-09] MEDS ORDERED: LIDOCAINE 1% INJ 10MG/ML (20 ML MDV) SQ ONE (12:57)
--- NOTE | 2020-01-09 13:19 | XR ---
Left hand HISTORY: Left hand laceration 3 views of the left hand There is arthropathy present within the left hand. Bone mineralization is maintained. No evident frac ture or dislocation. No radiopaque foreign body. Lateral exam not optimally positioned. IMPRESSION: Osteoarthritis, no evident sequela due to patient's laceration.
--- NOTE | 2020-01-09 14:11 | ED ---
Wound/Laceration HPI - General Chief Complaint: Wound/Laceration Stated Complaint: Left hand laceration Time Seen by Provider: 01/09/20 12:44 Source: patient Mode of arrival: ambulatory Limitations: no limitations - History of Present Illness Initial Comments: Patient is a 64-year-old male presenting to the emergency Department with complaints of a laceration to the top of his left hand. Patient states he was using a metalsmith and he slipped, cutting of the dorsal aspect of his left hand. Patient denies being on blood thinners. He is currently receiving chemo once a week for lung cancer. He states his tetanus vaccine is up-to-date. Bleeding is controlled at this time with a bandage. He has no other complaints. Upon arrival to the ER,s vital signs are stable. - Related Data Home Medications Medication Instructions Recorded Confirmed Levothyroxine Sodium [Synthroid] 25 mcg PO DAILY 09/27/19 11/27/19 predniSONE 10 mg PO DAILY 09/27/19 11/27/19 HYDROcodone/APAP 5-325MG [[place] 1 tab PO Q6HR PRN 10/12/19 11/27/19 5-325] Previous Rx's Medication Instructions Recorded Acetaminophen Tab [Tylenol] 500 mg PO Q6HR PRN #0 tab 07/15/16 Calcium Carbonate [Tums] 1,000 mg PO QID PRN #0 chew 09/15/16 Cephalexin [Keflex] 500 mg PO BID 3 Days #6 cap 01/09/20 Allergies Allergy/AdvReac Type Severity Reaction Status Date / Time adhesive tape AdvReac Rash/Hives Verified 01/09/20 12:32 Review of Systems ROS Statement: Those systems with pertinent positive or pertinent negative responses have been documented in the HPI. ROS Other: All systems not noted in ROS Statement are negative. Past Medical History Past Medical History: Cancer, COPD Additional Past Medical History / Comment(s): R upper lung cancer. History of Any Multi-Drug Resistant Organisms: None Reported Past Surgical History: No Surgical Hx Reported Additional Past Surgical History / Comment(s): 07/15/16 bronchoscopy with bx. Past Anesthesia/Blood Transfusion Reactions: No Reported Reaction Past Psychological History: No Psychological Hx Reported Smoking Status: Current every day smoker Past Alcohol Use History: None Reported Past Drug Use History: Marijuana - Past Family History Father Family Medical History: Coronary Artery Disease (CAD) Additional Family Medical History / Comment(s): Dad in his late 70's from a complication after a hip fx. Sister(s) Family Medical History: Coronary Artery Disease (CAD) Mother Family Medical History: Coronary Artery Disease (CAD) Additional Family Medical History / Comment(s): Mother at the age of 80 yrs in a MVA. Daughter(s) Family Medical History: No Reported History General Exam - General Exam Comments Initial Comments: GENERAL: Well-appearing, well-nourished and in no acute distress. HEAD: Atraumatic, normocephalic. EYES: Pupils equal round and reactive to light, extraocular movements intact, sclera anicteric, conjunctiva are normal. ENT: Moist mucous membranes. NECK: Normal range of motion, supple without lymphadenopathy or JVD. LUNGS: Breath sounds clear to auscultation bilaterally and equal. No wheezes rales or rhonchi. HEART: Regular rate and rhythm without murmurs, rubs or gallops. ABDOMEN: Soft, nontender, normoactive bowel sounds. No guarding, no rebound. No masses appreciated. EXTREMITIES: Patient does have full range of motion of left hand and fingers. Neurovascular intact. NEUROLOGICAL: Cranial nerves II through XII grossly intact. Normal speech, normal gait. PSYCH: Normal mood, normal affect. SKIN: Warm, Dry, normal turgor, no rashes . Patient has a 3 cm irregular bordered laceration to the dorsal aspect of the left hand with tendon involvement. There is also some avulsion of the skin as well. Bleeding is controlled at this time. Limitations: no limitations Course Vital Signs 01/09/20 12:33 Temperature 97.7 F Pulse Rate 91 Respiratory 18 Rate Blood Pressure 137/87 O2 Sat by Pulse 98 Oximetry Procedures - Laceration Laceration #1 Consent Obtained: verbal consent Indication: laceration Site: hand (Left hand, dorsal aspect) Size (cm): 3 Description: flap, avulsion, irregular Depth: simple, single layer, involves tendon Anesthetic Used: lidocaine 1% Anesthesia Technique: local infiltration Amount (mls): 3 Pre-repair: wound explored, irrigated extensively Type of Sutures: nylon Size of Sutures: 4-0 Number of Sutures: 3 Technique: simple, interrupted Patient Tolerated Procedure: well - Orthopedic Splinting/Casting Injury #1 Side: left Upper Extremity Injury Location: hand Upper Extremity Immobilizer: posterior splint, Tye wrap, synthetic pre-padded splint Medical Decision Making - Medical Decision Making Patient is a 64-year-old male presenting with a 3 cm irregular laceration, avulsion injury of the left hand, dorsal aspect. Patient is not on blood thinners. His tetanus vaccine is up-to-date. Since wound was cleaned, irrigated with 1 L of sterile fluid. Portions of patient's wound was not able to close due to avulsion of skin. I was able to place 3, 4-0 sutures to the proximal and distal ends of the wound. There is tendon involvement. Patient w as placed in a short hand splint and bandage was applied. Patient will follow up with orthopedics. Patient will be started on Keflex. He is in agreement with this plan of care. He is stable for discharge. He will have sutures removed in 7-10 days. Return parameters were discussed with the patient he verbalizes understanding. Disposition Clinical Impression: Laceration of left hand involving extensor tendon Disposition: HOME SELF-CARE Condition: Stable Instructions (If sedation given, give patient instructions): Laceration (ED) Additional Instructions: Please return to the Emergency Department if symptoms worsen or any other concerns. Take as prescribed. Follow up with orthopedic as discussed. Keep hand in splint. Keep dressing dry and clean. Prescriptions: Cephalexin [Keflex] 500 mg PO BID 3 Days #6 cap Is patient prescribed a controlled substance at d/c from ED?: No Referrals: Suzan Montemayor DO [Primary Care Provider] - 1-2 days Robin Mcgregor MD [STAFF PHYSICIAN] - 1-2 days
== END 2020-01-09 14:28 | disposition home or self-care (01) ==
LOC: EC 12:27
DX: S61.412A Laceration without foreign body of left hand, initial encounter (principal); C34.91 Malignant neoplasm of unspecified part of right bronchus or lung; J44.9 Chronic obstructive pulmonary disease, unspecified; F17.200 Nicotine dependence, unspecified, uncomplicated; Z91.048 Other nonmedicinal substance allergy status; Z79.52 Long term (current) use of systemic steroids; Z79.890 Hormone replacement therapy; Z92.21 Personal history of antineoplastic chemotherapy; W29.8XXA Contact with other powered hand tools and household machinery, initial encounter; Y93.89 Activity, other specified
CPT/HCPCS: 73130; 99283; 12002; J2001

== ENCOUNTER → 2020-01-25 | Outpatient (CLI) | payer OTHER ==
[2020-01-25 09:08] LABS: African American GFR (CKD) >90 (>60 ml/min/1.73 sqM); Blood Urea Nitrogen 17 mg/dL (9-20); Non-African American GFR(CKD) >90 (>60 ml/min/1.73 sqM)
--- NOTE | 2020-01-25 12:15 | CT ---
EXAMINATION TYPE: CT ChestAbdPelvis w con DATE OF EXAM: 01/25/2020 COMPARISON: 11/12/2019 HISTORY: Follow up lung cancer CT DLP: 427.9 mGycm CONTRAST: CT scan of the chest, abdomen and pelvis is performed with Oral Contrast and with IV Contrast, patien t injected with 100 mL of Isovue 300. [address] Chest: LUNGS: Right suprahilar mass with internal lucent foci persists and currently measures 5.2 x 3.0 cm v ersus 5.3 x 2.7 cm previously. Stable adjacent 1 cm nodule. There is bronchial wall thickening and na rrowing noted of the right upper lobe bronchus. There is an enlarging lobulated mass right lower lobe /right infrahilar region measuring 4.4 x 3.2 cm. Previous measurement of 2.4 x 2.4 cm. Mucus filled r ight lower lobe bronchi persists. Right apical emphysematous bleb. Left lung is clear. MEDIASTINUM: Neoplastic extension to level of shawn and invading subcarinal region is thought prese nt from right hilar neoplasm. No new adenopathy identified. HILAR STRUCTURES: No evidence for mass. No hilar adenopathy is appreciated. OTHER: No significant abnormality. CONTRAST CT ABDOMEN AND PELVIS FINDINGS: LIVER/GB: No calcified gallstones. No space occupying hepatic lesion. Biliary tree is of normal ca liber. PANCREAS: No inflammation. No distinct mass. SPLEEN: No splenic enlargement. No lesion seen. ADRENALS: No nodule. No thickening. KIDNEYS/BLADDER: No hydronephrosis. No nephrolithiasis. No disctinct renal mass. BOWEL: Normal appendix. Normal bowel caliber. No inflammation. GENITAL ORGANS: No gross abnormality. LYMPH NODES: No greater than 1cm abdominal or pelvic lymph nodes are appreciated. AORTA: No significant abnormality. OSSEOUS STRUCTURES: No significant abnormality is seen. OTHER: No significant additional abnormality is seen. IMPRESSION: 1. Right suprahilar masslike density is unchanged. There is encasement of the right upper lobe bronch us and bronchial wall thickening with mediastinal extension unchanged from prior study. 2. Right infrahilar/right lower lobe lobulated mass appears to have enlarged as noted above.
== END | disposition home or self-care (01) ==
LOC: RADCTMAIN 08:18
PROVIDERS: ATTEND Internal Medicine Hematology & Oncology
DX: C34.91 Malignant neoplasm of unspecified part of right bronchus or lung (principal); J98.09 Other diseases of bronchus, not elsewhere classified
CPT/HCPCS: 82565; 84520; 71260; 74177; 36415; Q9967

== ENCOUNTER → 2020-03-24 | Outpatient (CLI) | payer OTHER ==
[2020-03-24 10:08] LABS: African American GFR (CKD) >90 (>60 ml/min/1.73 sqM); Blood Urea Nitrogen 18 mg/dL (9-20); Non-African American GFR(CKD) >90 (>60 ml/min/1.73 sqM)
--- NOTE | 2020-03-24 11:46 | CT ---
EXAMINATION TYPE: CT ChestAbdPelvis w con DATE OF EXAM: 03/24/2020 COMPARISON: Prior CT January 25, 2020 and older CTs. Most recent prior PET/CT June 09, 2019. HISTORY: follow up for lung cancer originally diagnosed [address] DLP: 444.6 mGycm. Automated Exposure Control for Dose Reduction was Utilized. CONTRAST: CT scan of the thorax, abdomen and pelvis is performed with IV Contrast, patient injected with 100 mL of Isovue 300. FINDINGS: LUNGS: Elevated right hemidiaphragm redemonstrated. Persistent left apical bleb and mild pulmonary/pa renchymal linear scarring. More prominent moderate to severe right apical pleural/parenchymal fibroti c change extending inferiorly is fairly stable. This extends along course of the mediastinum. The hyp ermetabolic nodule centrally and PET/CT less well-seen on current study near superior aspect of the a ortic arch axial image 17 for reference. No significant change or progression from most recent CT. Ri ght upper lung bronchus shows patency but narrowing seen best axial image 25 not significantly change d from most recent CT axial image 18. Hypermetabolic nodule or lymph node at this level not clearly s een on this study. Fairly moderate central irregular bronchiectasis is redemonstrated. Right lower lo be centrally shows improved adjacent central nodularity for reference posterior aspect measures 1.5 x 1.0 cm prior study image 29 versus 3.2 x 1.8 cm prior study image 30. Component of mucosal plugging is present but there is some hypermetabolic activity noted at this level on recent PET/CT. No suspici ous left-sided nodules or masses. No pleural effusion or pneumothorax MEDIASTINUM: There are no new greater than 1 cm hilar or mediastinal lymph nodes. No cardiomegaly o r pericardial effusion is seen. Persistent abnormal soft tissue surrounding right mainstem bronchus and subcarinal esophagus near axial images 21 through 24 LIVER/GB: No significant abnormality is appreciated. PANCREAS: No significant abnormality is seen. SPLEEN: No significant abnormality is seen. ADRENALS: No significant abnormality is seen. KIDNEYS: No significant abnormality is seen. BOWEL: Oral contrast does not reach level of terminal ileum. No suspicious small large bowel dilatati on. GENITAL ORGANS: Is upper limits of normal size with central calcifications LYMPH NODES: No greater than 1cm abdominal or pelvic lymph nodes are appreciated. OSSEOUS STRUCTURES: Scoliotic curvature in the upper thoracic spine. OTHER: Moderate calcified plaque of the aorta extends into branch vessels. IMPRESSION: Improving right infrahilar/lower lobe lobulated mass likely reflecting combination of zev plasm and mucus plugging. Extensive posttreatment and emphysematous and neoplastic changes redemonst rated as detailed above without significant change from most recent CT. No obvious new mass or adenop athy noted to suggest neoplastic progression from most recent CT.
--- NOTE | 2020-03-24 14:04 | NM ---
EXAMINATION TYPE: NM bone scan whole body DATE OF EXAM: 03/24/2020 COMPARISON: 03/24/2020 HISTORY: Lung cancer Delayed whole-body scanning was performed following the injection of 22.5 mCi Tc 99m MDP. Images acq uired 3.5 hours post injection. FINDINGS: There is intense uptake along the costovertebral junction at T10, T11 and T12. CT scan has been revie wed and no definite abnormality is seen. Remaining osseous structures demonstrate normal uptake which appears symmetric without diagnostic jazz dence of metastasis. IMPRESSION: 1. Abnormal uptake on the left at the costovertebral junction at levels T10-T12. Finding is nonspecif ic. There is no corresponding destructive, lytic or blastic change by recent CT scan.
== END | disposition home or self-care (01) ==
LOC: RADNMMAIN 09:13
PROVIDERS: ATTEND Internal Medicine Hematology & Oncology
DX: C34.91 Malignant neoplasm of unspecified part of right bronchus or lung (principal); J43.9 Emphysema, unspecified
CPT/HCPCS: 82565; 84520; 71260; 74177; 36415; 78306; A9503; Q9967

== ENCOUNTER → 2020-05-26 | Outpatient (CLI) | payer OTHER ==
[2020-05-26 13:46] LABS: African American GFR (CKD) >90 (>60 ml/min/1.73 sqM); Blood Urea Nitrogen 16 mg/dL (9-20); Non-African American GFR(CKD) >90 (>60 ml/min/1.73 sqM)
--- NOTE | 2020-05-26 14:18 | CT ---
EXAMINATION TYPE: CT ChestAbdPelvis w con DATE OF EXAM: 05/26/2020 COMPARISON: 03/24/2020 HISTORY: follow up lung cancer CT DLP: 451.9 mGycm CONTRAST: CT scan of the chest, abdomen and pelvis is performed with Oral Contrast and with IV Contrast, patien t injected with 100 mL of Isovue 300. CT Chest: LUNGS: Post radiation therapy changes fibrosis right upper lobe medially extending from the right hil um. More confluent soft tissue measuring 3.8 x 2.2 cm is stable relative to the prior study. Internal bronchiectasis. There is lobulated right infrahilar mass which has increased since prior study with the component measuring 2.7 x 1.8 cm as well as 2.6 x 1.5 cm. Mucous filling is noted of the right lo wer lobe bronchi. Right apical bleb noted. Parenchymal scarring seen. The left lung is clear and free of nodule or mass. No pleural effusion or focal consolidation. MEDIASTINUM: Thoracic aorta is of normal caliber. The heart is not enlarged. No evidence for media stinal mass or adenopathy. HILAR STRUCTURES: No evidence for mass. No hilar adenopathy is appreciated. OTHER: No significant abnormality. CONTRAST CT ABDOMEN AND PELVIS FINDINGS: LIVER/GB: Mild hepatic steatosis noted. No calcified gallstones. No space occupying hepatic lesion. Biliary tree is of normal caliber. PANCREAS: No inflammation. No distinct mass. SPLEEN: No splenic enlargement. No lesion seen. ADRENALS: No nodule. No thickening. KIDNEYS/BLADDER: No hydronephrosis. No nephrolithiasis. No distinct renal mass. BOWEL: Normal appendix. Normal bowel caliber. No inflammation. GENITAL ORGANS: No gross abnormality. LYMPH NODES: No greater than 1cm abdominal or pelvic lymph nodes are appreciated. AORTA: No significant abnormality. OSSEOUS STRUCTURES: No significant abnormality is seen. OTHER: No significant additional abnormality is seen. IMPRESSION: 1. There is lobulated right infrahilar mass which has increased since prior study with the component measuring 2.7 x 1.8 cm as well as 2.6 x 1.5 cm. 2.Post radiation therapy changes fibrosis right upper lobe medially extending from the right hilum. M ore confluent soft tissue measuring 3.8 x 2.2 cm is stable relative to the prior study.
== END | disposition home or self-care (01) ==
LOC: RADCTMAIN 12:03
PROVIDERS: ATTEND Internal Medicine Hematology & Oncology
DX: C34.91 Malignant neoplasm of unspecified part of right bronchus or lung (principal); Z92.3 Personal history of irradiation
CPT/HCPCS: 82565; 84520; 71260; 74177; 36415; Q9967

== ENCOUNTER → 2020-07-18 | Outpatient (CLI) | payer OTHER ==
[2020-07-18 11:06] LABS: African American GFR (CKD) >90 (>60 ml/min/1.73 sqM); Blood Urea Nitrogen 20 mg/dL (9-20); Non-African American GFR(CKD) >90 (>60 ml/min/1.73 sqM)
--- NOTE | 2020-07-18 13:23 | CT ---
EXAMINATION TYPE: CT ChestAbdPelvis w con DATE OF EXAM: 07/18/2020 COMPARISON: Prior CT chest abdomen pelvis 05/26/2020 HISTORY: follow up lung cancer CT DLP: 450 mGycm Automated exposure control for dose reduction was used. CONTRAST: CT scan of the chest, abdomen and pelvis is performed with Oral Contrast and with IV Contrast, patien t injected with 100 mL of Isovue 300. FINDINGS: LUNGS: There is some progression in the right upper lobe lung mass, the abnormal soft tissue now cami ures approximately 5.9 x 4.3 x 5.2 cm which is increased from prior when it measured 2.7 x 1.6 x 3.7 cm. The post treatment changes in the right upper lobe towards the apex and prominence of interstitiu m are again noted. Possible mucus plugging present in the right lower lobe, postobstructive changes m ay be present. There is no pleural effusion or pneumothorax seen. MEDIASTINUM: There is interval development of a paraesophageal node, axial image 43 which is increase d in size and now measures 17 mm as compared to prior exam when it measured only 7 mm, axial image 43 . Confluent soft tissue present in the retrocaval pretracheal region shows a similar appearance. AORTA: No significant abnormality is seen. OTHER: No additional significant abnormality is seen. LIVER/GB: No significant abnormality is appreciated. PANCREAS: No significant abnormality is seen. SPLEEN: No significant abnormality is seen. ADRENALS: No significant abnormality is seen. KIDNEYS: No significant abnormality is seen. REPRODUCTIVE ORGANS: No real change seen. BOWEL: No significant abnormality is seen. FREE AIR: No Free Air visible. ASCITES: None seen. RETROPERITONEAL ADENOPATHY: No retroperitoneal adenopathy is seen. LYMPH NODES: No greater than 1 cm abdominal or pelvic lymph nodes are appreciated. URINARY BLADDER: No significant abnormality is seen. PELVIC ADENOPATHY: None visualized. OSSEOUS STRUCTURES: No significant abnormality is seen. IMPRESSION: Progression of patient's right lower lobe lung mass.
== END | disposition home or self-care (01) ==
LOC: RADCTMAIN 10:25
PROVIDERS: ATTEND Internal Medicine Hematology & Oncology
DX: C34.91 Malignant neoplasm of unspecified part of right bronchus or lung (principal)
CPT/HCPCS: 82565; 84520; 71260; 74177; 36415; Q9967

== ENCOUNTER → 2020-08-02 | Outpatient (CLI) | payer OTHER ==
--- NOTE | 2020-08-04 12:33 | PE ---
Nuclear medicine PET/CT HISTORY: Right lung carcinoma, subsequent, C 34.81 Patient received 13.6 mCi F-18 FDG i.v., delayed scanning was performed from the skull base to the mi d thighs. Localization and attenuation correction CT scan was performed. Correlation CT chest abdomen pelvis 07/18/2020, prior medicine PET/CT dated 06/09/2019 Chest and neck: The probable scarring in the right upper lobe medially shows only mild uptake. The ma ss in the right lower lobe however shows extensive hypermetabolic uptake which extends to the right h ilar region, leida uptake is also present adjacent to the esophagus in an enlarged node. There is no cervical or supraclavicular adenopathy. No pleural or pericardial effusion. Probable postobstructive changes are present at the right lung base. Some groundglass densities present in the left upper lobe with some mild uptake. There is no adrenal mass. No evident liver mass or retroperitoneal adenopathy. No suspicious uptake. There is no ascites. Prostate shows associated calcification. Osseous structures show no hypermetabolic uptake. IMPRESSION: Findings consistent with recurrence as described.
== END | disposition home or self-care (01) ==
LOC: RADPETMAIN 07:46
PROVIDERS: ATTEND Internal Medicine Hematology & Oncology
DX: C34.81 Malignant neoplasm of overlapping sites of right bronchus and lung (principal)
CPT/HCPCS: 78815; A9552

== ENCOUNTER 2020-09-04 13:55 | Emergency (ER) | payer OTHER ==
[2020-09-04] MEDS ORDERED: ACETAMINOPHEN TAB 500 MG TAB PO STA (14:56)
[2020-09-04] MEDS ORDERED: IPRATROPIUM-ALBUTEROL 3 ML NEB INHALATION STA (15:19)
--- NOTE | 2020-09-04 15:20 | ED ---
Fever HPI - General Chief Complaint: Fever Stated Complaint: SOB/body aches Time Seen by Provider: 09/04/20 14:38 Source: patient, RN notes reviewed Mode of arrival: ambulatory Limitations: no limitations - History of Present Illness Initial Comments: this a 64-year-old male presents emergency Department with chief complaint of fever cough congestion. Patient has known lung cancer on oral chemotherapy. Patient states his last dose was Tuesday. Patient states that he wants "burst testing. Patient states that he has productive cough he states that his there are multiple sick people. Patient's states he still smokes and has severe COPD. Patient denies any GI symptoms including asthma and diarrhea constipation. Patient has not taken anything for his fever including Tylenol or ibuprofen - Related Data Home Medications Medication Instructions Recorded Confirmed Levothyroxine Sodium [Synthroid] 25 mcg PO DAILY 09/27/19 09/04/20 Cholecalciferol [Vitamin D3 (25 1,000 unit PO DAILY 09/04/20 09/04/20 Mcg = 1000 Iu)] Cyanocobalamin (Vitamin B-12) 1,000 mcg PO DAILY 09/04/20 09/04/20 [Vitamin B-12] Meloxicam [Mobic] 7.5 mg PO BID 09/04/20 09/04/20 Vitamin E 1,000 unit PO DAILY 09/04/20 09/04/20 Zinc 50 mg PO DAILY 09/04/20 09/04/20 predniSONE [Deltasone] 20 mg PO DAILY 09/04/20 09/04/20 Previous Rx's Medication Instructions Recorded Amoxicillin/Potassium Clav 1 tab PO Q12HR #20 tab 09/04/20 [Augmentin 875-125 Tablet] Azithromycin [Zithromax Z-pack (6 0 mg PO DIRECTED #1 pack 09/04/20 tabs)] Allergies Allergy/AdvReac Type Severity Reaction Status Date / Time adhesive tape AdvReac Rash/Hives Verified 09/04/20 15:04 Review of Systems ROS Statement: Those systems with pertinent positive or pertinent negative responses have been documented in the HPI. ROS Other: All systems not noted in ROS Statement are negative. Past Medical History Past Medical History: Cancer, COPD Additional Past Medical History / Comment(s): R upper lung cancer. History of Any Multi-Drug Resistant Organisms: None Reported Past Surgical History: No Surgical Hx Reported Additional Past Surgical History / Comment(s): 9/22/16 bronchoscopy with bx. Past Anesthesia/Blood Transfusion Reactions: No Reported Reaction Past Psychological History: No Psychological Hx Reported Smoking Status: Current some day smoker Past Alcohol Use History: None Reported Past Drug Use History: Marijuana - Past Family History Father Family Medical History: Coronary Artery Disease (CAD) Additional Family Medical History / Comment(s): Dad in his late 70's from a complication after a hip fx. Sister(s) Family Medical History: Coronary Artery Disease (CAD) Mother Family Medical History: Coronary Artery Disease (CAD) Additional Family Medical History / Comment(s): Mother at the age of 80 yrs in a MVA. Daughter(s) Family Medical History: No Reported History General Exam Limitations: no limitations General appearance: alert, in no apparent distress Head exam: Present: atraumatic, normocephalic, normal inspection Eye exam: Present: normal appearance, PERRL, EOMI. Absent: scleral icterus, conjunctival injection, periorbital swelling ENT exam: Present: normal oropharynx, mucous membranes moist, TM's normal bilaterally Neck exam: Present: normal inspection, full ROM. Absent: tenderness, meningismus, lymphadenopathy Respiratory exam: Present: wheezes, decreased breath sounds. Absent: normal lung sounds bilaterally, respiratory distress, rales, rhonchi, stridor Cardiovascular Exam: Present: normal rhythm, tachycardia, normal heart sounds. Absent: systolic murmur, diastolic murmur, rubs, gallop, clicks Extremities exam: Absent: pedal edema Skin exam: Present: warm, dry, intact, normal color. Absent: rash Course Vital Signs 09/04/20 09/04/20 09/04/20 13:59 15:08 16:00 Temperature 100.8 F H 99.5 F Pulse Rate 109 H 92 97 Respiratory 18 20 20 Rate Blood Pressure 115/66 123/72 116/67 O2 Sat by Pulse 96 94 L 93 L Oximetry 09/04/20 09/04/20 09/04/20 16:04 16:12 17:13 Temperature Pulse Rate 93 94 106 H Respiratory 18 Rate Blood Pressure 98/60 O2 Sat by Pulse 93 L Oximetry Medical Decision Making - Medical Decision Making chest x-ray does not reveal any major abnormality, labs reviewed patient has mild hyponatremia, mild transaminitis. Patient did have CTA of his chest rule out PE as he had an elevated d-dimer. Patient has no PE he has consistent mas slike opacities in the right consistent with his cancer no changes from prior. Patient is on oral chemotherapy and is concerning for being immunocompromised with fever. Patient instructed that he needs to be admitted for IV antibiotics pending blood cultures, ALLERGY evaluation. Patient refuses day he is awake alert and orientated and able to make his own decisions. He does understand the risk of leaving including possible . - Lab Data Result diagrams: 09/04/20 14:56 09/04/20 14:56 Lab Results 09/04/20 09/04/20 09/04/20 Range/Units 14:56 14:56 14:56 WBC 5.4 (3.8-10.6) k/uL RBC 4.06 L (4.30-5.90) m/uL Hgb 12.5 L (13.0-17.5) gm/dL Hct 38.0 L (39.0-53.0) % MCV 93.7 D (80.0-100.0) fL MCH 30.9 (25.0-35.0) pg MCHC 33.0 (31.0-37.0) g/dL RDW 15.9 H (11.5-15.5) % Plt Count 247 (150-450) k/uL MPV 7.2 Neutrophils % 82 % Lymphocytes % 15 % Monocytes % 2 % Eosinophils % 0 % Basophils % 1 % Neutrophils # 4.4 (1.3-7.7) k/uL Lymphocytes # 0.8 L (1.0-4.8) k/uL Monocytes # 0.1 (0-1.0) k/uL Eosinophils # 0.0 (0-0.7) k/uL Basophils # 0.0 (0-0.2) k/uL PT 9.4 (9.0-12.0) sec INR 0.9 (<1.2) APTT 28.1 (22.0-30.0) sec D-Dimer 0.87 H (<0.60) mg/L FEU Sodium 129 L (137-145) mmol/L Potassium 4.8 (3.5-5.1) mmol/L Chloride 98 (98-107) mmol/L Carbon Dioxide 27 (22-30) mmol/L Anion Gap 4 mmol/L BUN 18 (9-20) mg/dL Creatinine 0.68 (0.66-1.25) mg/dL Est GFR (CKD-EPI)AfAm >90 (>60 ml/min/1.73 sqM) Est GFR (CKD-EPI)NonAf >90 (>60 ml/min/1.73 sqM) Glucose 93 (74-99) mg/dL Plasma Lactic Acid Will (0.7-2.0) mmol/L Calcium 9.1 (8.4-10.2) mg/dL Magnesium 1.8 (1.6-2.3) mg/dL Total Bilirubin 0.5 (0.2-1.3) mg/dL AST 198 H (17-59) U/L ALT 306 H (4-49) U/L Alkaline Phosphatase 74 (38-126) U/L Troponin I (0.000-0.034) ng/mL NT-Pro-B Natriuret Pep pg/mL Total Protein 6.0 L (6.3-8.2) g/dL Albumin 3.8 (3.5-5.0) g/dL Urine Color Urine Appearance (Clear) Urine pH (5.0-8.0) Ur Specific [place] (1.001-1.035) Urine Protein (Negative) Urine Glucose (UA) (Negative) Urine Ketones (Negative) Urine Blood (Negative) Urine Nitrite (Negative) Urine Bilirubin (Negative) Urine Urobilinogen (<2.0) mg/dL Ur Leukocyte Esterase (Negative) Coronavirus (PCR) (Not Detectd) Influenza Type A RNA (Not Detectd) Influenza Type B (PCR) (Not Detectd) 09/04/20 09/04/20 09/04/20 Range/Units 14:56 14:56 14:56 WBC (3.8-10.6) k/uL RBC (4.30-5.90) m/uL Hgb (13.0-17.5) gm/dL Hct (39.0-53.0) % MCV (80.0-100.0) fL MCH (25.0-35.0) pg MCHC (31.0-37.0) g/dL RDW (11.5-15.5) % Plt Count (150-450) k/uL MPV Neutrophils % % Lymphocytes % % Monocytes % % Eosinophils % % Basophils % % Neutrophils # (1.3-7.7) k/uL Lymphocytes # (1.0-4.8) k/uL Monocytes # (0-1.0) k/uL Eosinophils # (0-0.7) k/uL Basophils # (0-0.2) k/uL PT (9.0-12.0) sec INR (<1.2) APTT (22.0-30.0) sec D-Dimer (<0.60) mg/L FEU Sodium (137-145) mmol/L Potassium (3.5-5.1) mmol/L Chloride (98-107) mmol/L Carbon Dioxide (22-30) mmol/L Anion Gap mmol/L BUN (9-20) mg/dL Creatinine (0.66-1.25) mg/dL Est GFR (CKD-EPI)AfAm (>60 ml/min/1.73 sqM) Est GFR (CKD-EPI)NonAf (>60 ml/min/1.73 sqM) Glucose (74-99) mg/dL Plasma Lactic Acid Will 0.8 (0.7-2.0) mmol/L Calcium (8.4-10.2) mg/dL Magnesium (1.6-2.3) mg/dL Total Bilirubin (0.2-1.3) mg/dL AST (17-59) U/L ALT (4-49) U/L Alkaline Phosphatase (38-126) U/L Troponin I <0.012 (0.000-0.034) ng/mL NT-Pro-B Natriuret Pep 143 pg/mL Total Protein (6.3-8.2) g/dL Albumin (3.5-5.0) g/dL Urine Color Urine Appearance (Clear) Urine pH (5.0-8.0) Ur Specific [place] (1.001-1.035) Urine Protein (Negative) Urine Glucose (UA) (Negative) Urine Ketones (Negative) Urine Blood (Negative) Urine Nitrite (Negative) Urine Bilirubin (Negative) Urine Urobilinogen (<2.0) mg/dL Ur Leukocyte Esterase (Negative) Coronavirus (PCR) (Not Detectd) Influenza Type A RNA (Not Detectd) Influenza Type B (PCR) (Not Detectd) 09/04/20 09/04/20 Range/Units 14:56 17:08 WBC (3.8-10.6) k/uL RBC (4.30-5.90) m/uL Hgb (13.0-17.5) gm/dL Hct (39.0-53.0) % MCV (80.0-100.0) fL MCH (25.0-35.0) pg MCHC (31.0-37.0) g/dL RDW (11.5-15.5) % Plt Count (150-450) k/uL MPV Neutrophils % % Lymphocytes % % Monocytes % % Eosinophils % % Basophils % % Neutrophils # (1.3-7.7) k/uL Lymphocytes # (1.0-4.8) k/uL Monocytes # (0-1.0) k/uL Eosinophils # (0-0.7) k/uL Basophils # (0-0.2) k/uL PT (9.0-12.0) sec INR (<1.2) APTT (22.0-30.0) sec D-Dimer (<0.60) mg/L FEU Sodium (137-145) mmol/L Potassium (3.5-5.1) mmol/L Chloride (98-107) mmol/L Carbon Dioxide (22-30) mmol/L Anion Gap mmol/L BUN (9-20) mg/dL Creatinine (0.66-1.25) mg/dL Est GFR (CKD-EPI)AfAm (>60 ml/min/1.73 sqM) Est GFR (CKD-EPI)NonAf (>60 ml/min/1.73 sqM) Glucose (74-99) mg/dL Plasma Lactic Acid Will (0.7-2.0) mmol/L Calcium (8.4-10.2) mg/dL Magnesium (1.6-2.3) mg/dL Total Bilirubin (0.2-1.3) mg/dL AST (17-59) U/L ALT (4-49) U/L Alkaline Phosphatase (38-126) U/L Troponin I (0.000-0.034) ng/mL NT-Pro-B Natriuret Pep pg/mL Total Protein (6.3-8.2) g/dL Albumin (3.5-5.0) g/dL Urine Color Yellow Urine Appearance Clear (Clear) Urine pH 6.5 (5.0-8.0) Ur Specific [place] 1.019 (1.001-1.035) Urine Protein Negative (Negative) Urine Glucose (UA) Negative (Negative) Urine Ketones Negative (Negative) Urine Blood Negative (Negative) Urine Nitrite Negative (Negative) Urine Bilirubin Negative (Negative) Urine Urobilinogen <2.0 (<2.0) mg/dL Ur Leukocyte Esterase Negative (Negative) Coronavirus (PCR) Not Detected (Not Detectd) Influenza Type A RNA Not Detected (Not Detectd) Influenza Type B (PCR) Not Detected (Not Detectd) Disposition Clinical Impression: Fever, Hyponatremia, Dyspnea, Small cell lung cancer Disposition: HOME SELF-CARE Condition: Serious Instructions (If sedation given, give patient instructions): Fever in Adults (ED) Additional Instructions: Please return to the Emergency Department if symptoms worsen or any other concerns. Prescriptions: Amoxicillin/Potassium Clav [Augmentin 875-125 Tablet] 1 tab PO Q12HR #20 tab Azithromycin [Zithromax Z-pack (6 tabs)] 0 mg PO DIRECTED #1 pack Is patient prescribed a controlled substance at d/c from ED?: No Referrals: Suzan Montemayor DO [Primary Care Provider] - 1-2 days Time of Disposition: 18:09
[2020-09-04 15:24] LABS: Basophils % (A) 1 %; Eosinophils % (A) 0 %; HGB 12.5 gm/dL (13.0-17.5); Lymphocytes # (A) 0.8 k/uL (1.0-4.8); Lymphocytes % (A) 15 %; MCH 30.9 pg (25.0-35.0); Mean Platelet Volume 7.2; Monocytes # (A) 0.1 k/uL (0-1.0); Monocytes % (A) 2 %; Neutrophils # (A) 4.4 k/uL (1.3-7.7); Neutrophils % (A) 82 %; Platelet Count 247 k/uL (150-450); RBC 4.06 m/uL (4.30-5.90); RDW 15.9 % (11.5-15.5); WBC 5.4 k/uL (3.8-10.6)
[2020-09-04 15:36] LABS: ALT 306 U/L (4-49); AST 198 U/L (17-59); African American GFR (CKD) >90 (>60 ml/min/1.73 sqM); Albumin 3.8 g/dL (3.5-5.0); Alkaline Phosphatase 74 U/L (38-126); Anion Gap 4 mmol/L; Blood Urea Nitrogen 18 mg/dL (9-20); Calcium 9.1 mg/dL (8.4-10.2); Carbon Dioxide 27 mmol/L (22-30); Chloride 98 mmol/L (98-107); Glucose 93 mg/dL (74-99); Magnesium 1.8 mg/dL (1.6-2.3); Non-African American GFR(CKD) >90 (>60 ml/min/1.73 sqM); Potassium 4.8 mmol/L (3.5-5.1); Sodium 129 mmol/L (137-145); Total Bilirubin 0.5 mg/dL (0.2-1.3)
[2020-09-04 15:43] LABS: MCV 93.7 fL (80.0-100.0)
[2020-09-04 15:47] LABS: INR 0.9 (<1.2); Partial Thromboplastin Time 28.1 sec (22.0-30.0); Prothrombin Time 9.4 sec (9.0-12.0)
[2020-09-04 16:02] LABS: SARS-CoV-2 RNA Rapid Abbott Not Detected (Not Detectd)
[2020-09-04 16:03] LABS: D-Dimer 0.87 mg/L FEU (<0.60)
--- NOTE | 2020-09-04 16:03 | XR ---
EXAMINATION TYPE: XR chest 2V DATE OF EXAM: 09/04/2020 COMPARISON: CT July 18, 2020. Chest x-ray January 22, 2019 HISTORY: History of lung cancer with difficulty of breathing and cough. TECHNIQUE: Frontal and lateral views of the chest are obtained. FINDINGS: There is background chronic emphysematous change. There is persistent medial right lung op acity and volume loss consistent with known neoplasm. Left lung is clear. No new suspicious focal air space opacity, pleural effusion, or pneumothorax.. The cardiac silhouette size remains within normal limits without change aortic knob. Old fracture deformity left mid clavicle redemonstrated. IMPRESSION: Chronic changes without new suspicious acute pulmonary process.
[2020-09-04 17:14] VITALS: RESP 18
[2020-09-04 17:17] LABS: Appearance,Urine Clear (Clear); Bilirubin,Urine Negative (Negative); Blood,Urine Negative (Negative); Color,Urine Yellow; Glucose,Urine (UA) Negative (Negative); Ketones,Urine Negative (Negative); Leukocyte Esterase,Urine Negative (Negative); Nitrite,Urine Negative (Negative); PH, Urine 6.5 (5.0-8.0); Protein,Urine Negative (Negative); Specific Gravity,Urine 1.019 (1.001-1.035); Urobilinogen,Urine <2.0 mg/dL (<2.0)
--- NOTE | 2020-09-04 17:20 | CT ---
EXAMINATION TYPE: CT chest angio for PE DATE OF EXAM: 09/04/2020 COMPARISON: PET CT scan 08/02/2020 HISTORY: ELEVATED D-DIMER, LUNG CA CT DLP: 233 mGycm Automated exposure control for dose reduction was used. CONTRAST: Performed with IV Contrast, patient injected with 100 mL of Isovue 370. There are 3-D post processed images. There is extensive right side perihilar masslike infiltration. There is encasement of the right bronc hus. There is encasement of the right pulmonary artery. There is right paratracheal increased soft ti ssue density. There is masslike infiltrate extending posteriorly in the right upper lobe and also inf eriorly into the posterior medial right lower lobe. Mass at the inferior right pulmonary hilum measur es 6.5 x 5 cm. I see no filling defects in the pulmonary arteries. Thoracic aorta shows no aneurysm or dissection. A scending aorta measures 3.3 cm. There is no aneurysm or dissection. There is some bullous emphysema a t the lung apices. There is a small interstitial infiltrate in the anterior aspect left upper lobe. T he upper abdominal soft tissues are intact. The bony thorax is intact. IMPRESSION: Masslike infiltration of the right upper lobe and right lower lobe consistent with tumor not signific antly different than old exam. There is no evidence of pulmonary embolism.
[2020-09-04] MEDS ORDERED: cefTRIAXone IN SWFI 1,000 MG/10 ML SYRINGE IVP STA (18:09)
[2020-09-04 19:06] VITALS: BP 126/72; PULSE 98; TEMP 98.8
== END 2020-09-04 19:06 | disposition home or self-care (01) ==
LOC: EC 13:55
DX: C34.11 Malignant neoplasm of upper lobe, right bronchus or lung (principal); R50.9 Fever, unspecified; E87.1 Hypo-osmolality and hyponatremia; R74.01 Elevation of levels of liver transaminase levels; R79.89 Other specified abnormal findings of blood chemistry; J44.9 Chronic obstructive pulmonary disease, unspecified; F17.200 Nicotine dependence, unspecified, uncomplicated; Z79.890 Hormone replacement therapy; Z79.1 Long term (current) use of non-steroidal anti-inflammatories (NSAID); Z79.51 Long term (current) use of inhaled steroids; Z91.048 Other nonmedicinal substance allergy status; Z20.828 Contact with and (suspected) exposure to other viral communicable diseases
CPT/HCPCS: 36415; 94640; 93005; 85379; 83880; 80053; 83605; 83735; 84484; 85025; 85610; 85730; 81003; 87502; 87635; 71046; 71275; 99284; 96374; J0696; Q9967

== ENCOUNTER 2020-09-07 15:23 | Inpatient (IN) | payer OTHER ==
[2020-09-07] MEDS ORDERED: SODIUM CHLORIDE 0.9% 1,000 ML IV STA (15:49)
[2020-09-07] MEDS ORDERED: IBUPROFEN 600 MG TAB PO STA (15:49)
[2020-09-07 16:34] LABS: Basophils % (A) 0 %; Eosinophils # (A) 0.1 k/uL (0-0.7); Eosinophils % (A) 1 %; HCT 46.5 % (39.0-53.0); Lymphocytes # (A) 0.3 k/uL (1.0-4.8); Lymphocytes % (A) 4 %; MCHC 33.4 g/dL (31.0-37.0); Mean Platelet Volume 7.3; Monocytes # (A) 0.1 k/uL (0-1.0); Monocytes % (A) 1 %; Neutrophils # (A) 7.4 k/uL (1.3-7.7); Neutrophils % (A) 94 %; Platelet Count 151 k/uL (150-450); RDW 15.6 % (11.5-15.5); WBC 7.9 k/uL (3.8-10.6)
[2020-09-07 16:45] LABS: ALT 126 U/L (4-49); AST 55 U/L (17-59); African American GFR (CKD) >90 (>60 ml/min/1.73 sqM); Alkaline Phosphatase 83 U/L (38-126); Anion Gap 9 mmol/L; Blood Urea Nitrogen 16 mg/dL (9-20); C Reactive Protein 51.1 mg/L (<10.0); Calcium 8.9 mg/dL (8.4-10.2); Carbon Dioxide 18 mmol/L (22-30); Chloride 102 mmol/L (98-107); Glucose 135 mg/dL (74-99); LDH 620 U/L (313-618); Magnesium 1.7 mg/dL (1.6-2.3); Non-African American GFR(CKD) >90 (>60 ml/min/1.73 sqM); Potassium 4.8 mmol/L (3.5-5.1); Sodium 129 mmol/L (137-145); Total Bilirubin 0.7 mg/dL (0.2-1.3); Total Protein 6.4 g/dL (6.3-8.2)
--- NOTE | 2020-09-07 16:47 | XR ---
EXAMINATION TYPE: XR chest 1V portable DATE OF EXAM: 09/07/2020 COMPARISON: 09/04/2020 HISTORY: Difficulty breathing. Cough. TECHNIQUE: Single view FINDINGS: There is right side perihilar increased density. There is infiltrate in the right paratrach eal region extending to the right lung apex. There is coarse interstitial density in the left lung. T here is no heart failure. There is slight elevation of the right diaphragm. Heart size is normal. IMPRESSION: There is right perihilar masslike infiltrate with also infiltrate extending into the righ t upper lobe not changed compared to recent exam. No heart failure. There is slight increased diffuse pulmonary interstitial infiltrate in the left lung compared to recent exam.
[2020-09-07 16:48] LABS: INR 0.9 (<1.2); Partial Thromboplastin Time 26.4 sec (22.0-30.0); Prothrombin Time 9.7 sec (9.0-12.0)
[2020-09-07 16:57] LABS: D-Dimer 1.67 mg/L FEU (<0.60)
[2020-09-07 17:00] LABS: Appearance,Urine Clear (Clear); Bilirubin,Urine Negative (Negative); Blood,Urine Trace (Negative); Color,Urine Yellow; Glucose,Urine (UA) Negative (Negative); Granular Casts,Urine 10 /lpf (0); HGB 15.5 gm/dL (13.0-17.5); Ketones,Urine 2+ (Negative); Leukocyte Esterase,Urine Negative (Negative); Mucus,Urine Occasional /hpf; Nitrite,Urine Negative (Negative); Protein,Urine 2+ (Negative); RBC,Urine 1 /hpf (0-5); Specific Gravity,Urine 1.027 (1.001-1.035); Squamous Epithelial Cell,Urine <1 /hpf (0-4); WBC,Urine 3 /hpf (0-5)
[2020-09-07] MEDS ORDERED: cefTRIAXone IN SWFI 1,000 MG/10 ML SYRINGE IVP STA (17:24)
--- NOTE | 2020-09-07 17:28 | ED ---
Fever HPI - General Chief Complaint: Fever Stated Complaint: fever/not feeling well Time Seen by Provider: 09/07/20 15:30 Source: patient Mode of arrival: ambulatory Limitations: no limitations - History of Present Illness Initial Comments: Patient is a 64-year-old male with past mental history of lung cancer present emergency department with reported cough and myalgias. Patient was seen in the emergency department 3 days ago for similar complaint. He does have concern for covid rapid testing at that time was negative. Hospitalization was recommended for antibiotics however the patient refused and left. He states he has not improved at all. Patient is currently on chemotherapy for his lung cancer. Last reported chemo session was on Tuesday. Patient denies any headaches or visual changes. No neck stiffness. Denies any back or flank pain. No chest pain. Does admit to mild shortness of breath with a nonproductive cough. No abdominal pain or changes in his bowel or bladder habits. Remainder of the history is obtained from the patient's chart as he is a poor historian - Related Data Home Medications Medication Instructions Recorded Confirmed Levothyroxine Sodium [Synthroid] 25 mcg PO DAILY 09/27/19 09/12/20 Cholecalciferol [Vitamin D3 (25 1,000 unit PO DAILY 09/04/20 09/12/20 Mcg = 1000 Iu)] Cyanocobalamin (Vitamin B-12) 1,000 mcg PO DAILY 09/04/20 09/12/20 [Vitamin B-12] Meloxicam [Mobic] 7.5 mg PO BID 09/04/20 09/12/20 Vitamin E 1,000 unit PO DAILY 09/04/20 09/12/20 Zinc 50 mg PO DAILY 09/04/20 09/12/20 predniSONE [Deltasone] 20 mg PO DAILY 09/04/20 09/12/20 Acetaminophen [Tylenol] 500 mg PO Q4-6H PRN 09/12/20 09/12/20 guaiFENesin-DM 600/30MG [Mucinex 1 tab PO BID PRN 09/12/20 09/12/20 Dm] Previous Rx's Medication Instructions Recorded Amoxic-Pot Clav 875-125Mg 1 tab PO Q12HR 7 Days #14 tab 09/10/20 [Augmentin 875-125] Allergies Allergy/AdvReac Type Severity Reaction Status Date / Time adhesive tape AdvReac Rash/Hives Verified 09/12/20 15:39 Review of Systems ROS Statement: Those systems with pertinent positive or pertinent negative responses have been documented in the HPI. ROS Other: All systems not noted in ROS Statement are negative. Past Medical History Past Medical History: Cancer, COPD Additional Past Medical History / Comment(s): R upper lung cancer. History of Any Multi-Drug Resistant Organisms: None Reported Past Surgical History: No Surgical Hx Reported Additional Past Surgical History / Comment(s): 07/15/16 bronchoscopy with bx. Past Anesthesia/Blood Transfusion Reactions: No Reported Reaction Past Psychological History: No Psychological Hx Reported Smoking Status: Current some day smoker, Former smoker Past Alcohol Use History: None Reported Past Drug Use History: Marijuana - Past Family History Father Family Medical History: Coronary Artery Disease (CAD) Additional Family Medical History / Comment(s): Dad in his late 70's from a complication after a hip fx. Sister(s) Family Medical History: Coronary Artery Disease (CAD) Mother Family Medical History: Coronary Artery Disease (CAD) Additional Family Medical History / Comment(s): Mother at the age of 80 yrs in a MVA. Daughter(s) Family Medical History: No Reported History General Exam Limitations: no limitations General appearance: alert, in no apparent distress Head exam: Present: atraumatic, normocephalic, normal inspection Eye exam: Present: normal appearance, PERRL, EOMI. Absent: scleral icterus, conjunctival injection, periorbital swelling ENT exam: Present: normal exam, mucous membranes dry Neck exam: Present: normal inspection. Absent: tenderness, meningismus, ly mphadenopathy Respiratory exam: Present: other (coarse, wet bronchospastic cough). Absent: respiratory distress, wheezes, rales, rhonchi, stridor Cardiovascular Exam: Present: normal rhythm, tachycardia, normal heart sounds. Absent: systolic murmur, diastolic murmur, rubs, gallop, clicks GI/Abdominal exam: Present: soft, normal bowel sounds. Absent: distended, tenderness, guarding, rebound, rigid Extremities exam: Present: normal inspection, full ROM, normal capillary refill. Absent: tenderness, pedal edema, joint swelling, calf tenderness Back exam: Present: normal inspection Neurological exam: Present: alert, oriented X3, CN II-XII intact Psychiatric exam: Present: normal affect, normal mood Skin exam: Present: warm, dry, intact, normal color. Absent: rash Course Vital Signs 09/07/20 09/07/20 09/07/20 15:28 17:19 17:51 Temperature 101.1 F H 100.3 F H Pulse Rate 140 H 109 H 103 H Respiratory 20 20 20 Rate Blood Pressure 103/69 130/84 O2 Sat by Pulse 93 L 99 95 Oximetry 09/07/20 09/07/20 09/07/20 18:30 19:41 20:53 Temperature 98.6 F Pulse Rate 95 92 95 Respiratory 20 20 20 Rate Blood Pressure 121/78 126/75 120/68 O2 Sat by Pulse 98 97 96 Oximetry Medical Decision Making - Medical Decision Making Upon arrival the patient is placed into room 19. A thorough history and physical exam was performed. She does arrive a heart rate of 140 and is febrile. Peripheral IV is established. The patient was given a liter bolus of normal saline. He is also given Motrin for fever control. Laboratory studies were conducted and a portal chest x-rays performed. Laboratory studies are reviewed demonstrated an elevated d-dimer of 1.67. Sodium 129. LDH is 620. Rapid coronavirus and influenza are negative .PCR covid sent. Chest x-ray is reviewed which demonstrates a right perihilar masslike infiltrate extending into the right upper lobe which is not changed compared to recent exam. Slight increased diffuse pulmonary interstitial infiltrate in the left lung. The patient is on active chemotherapy the patient was covered with Rocephin and azithromycin. Recommended hospital admission. Patient agreed to this. Vitals were much improved upon multiple re-evaluations. Patient remained in stable condition and was transported to the floor - Lab Data Result diagrams: 09/09/20 09:53 09/10/20 07:40 Lab Results 09/07/20 09/07/20 09/07/20 Range/Units 16:10 16:10 16:10 WBC 7.9 (3.8-10.6) k/uL RBC 5.00 (4.30-5.90) m/uL Hgb 15.5 D (13.0-17.5) gm/dL Hct 46.5 (39.0-53.0) % MCV 93.0 (80.0-100.0) fL MCH 31.0 (25.0-35.0) pg MCHC 33.4 (31.0-37.0) g/dL RDW 15.6 H (11.5-15.5) % Plt Count 151 (150-450) k/uL MPV 7.3 Neutrophils % 94 % Lymphocytes % 4 % Monocytes % 1 % Eosinophils % 1 % Basophils % 0 % Neutrophils # 7.4 (1.3-7.7) k/uL Lymphocytes # 0.3 L (1.0-4.8) k/uL Monocytes # 0.1 (0-1.0) k/uL Eosinophils # 0.1 (0-0.7) k/uL Basophils # 0.0 (0-0.2) k/uL PT (9.0-12.0) sec INR (<1.2) APTT (22.0-30.0) sec D-Dimer (<0.60) mg/L FEU Sodium 129 L (137-145) mmol/L Potassium 4.8 (3.5-5.1) mmol/L Chloride 102 (98-107) mmol/L Carbon Dioxide 18 L (22-30) mmol/L Anion Gap 9 mmol/L BUN 16 (9-20) mg/dL Creatinine 0.63 L (0.66-1.25) mg/dL Est GFR (CKD-EPI)AfAm >90 (>60 ml/min/1.73 sqM) Est GFR (CKD-EPI)NonAf >90 (>60 ml/min/1.73 sqM) Glucose 135 H (74-99) mg/dL Plasma Lactic Acid Will (0.7-2.0) mmol/L Calcium 8.9 (8.4-10.2) mg/dL Magnesium 1.7 (1.6-2.3) mg/dL Ferritin 4004.6 H (22.0-322.0) ng/mL Total Bilirubin 0.7 (0.2-1.3) mg/dL AST 55 (17-59) U/L ALT 126 H (4-49) U/L Alkaline Phosphatase 83 (38-126) U/L Lactate Dehydrogenase 620 H (313-618) U/L C-Reactive Protein 51.1 H (<10.0) mg/L Total Protein 6.4 (6.3-8.2) g/dL Albumin 4.0 (3.5-5.0) g/dL Procalcitonin (0.02-0.09) ng/mL Urine Color Yellow Urine Appearance Clear (Clear) Urine pH 6.0 (5.0-8.0) Ur Specific [place] 1.027 (1.001-1.035) Urine Protein 2+ H (Negative) Urine Glucose (UA) Negative (Negative) Urine Ketones 2+ H (Negative) Urine Blood Trace H (Negative) Urine Nitrite Negative (Negative) Urine Bilirubin Negative (Negative) Urine Urobilinogen 2.0 (<2.0) mg/dL Ur Leukocyte Esterase Negative (Negative) Urine RBC 1 (0-5) /hpf Urine WBC 3 (0-5) /hpf Ur Squamous Epith Cells <1 (0-4) /hpf Granular Casts 10 (0) /lpf Urine Mucus Occasional H (None) /hpf C. difficile (EIA) Intrp (Negative) Coronavirus (PCR) (Not Detected) Influenza Type A RNA (Not Detectd) Influenza Type B (PCR) (Not Detectd) 09/07/20 09/07/20 09/07/20 Range/Units 16:10 16:10 16:10 WBC (3.8-10.6) k/uL RBC (4.30-5.90) m/uL Hgb (13.0-17.5) gm/dL Hct (39.0-53.0) % MCV (80.0-100.0) fL MCH (25.0-35.0) pg MCHC (31.0-37.0) g/dL RDW (11.5-15.5) % Plt Count (150-450) k/uL MPV Neutrophils % % Lymphocytes % % Monocytes % % Eosinophils % % Basophils % % Neutrophils # (1.3-7.7) k/uL Lymphocytes # (1.0-4.8) k/uL Monocytes # (0-1.0) k/uL Eosinophils # (0-0.7) k/uL Basophils # (0-0.2) k/uL PT 9.7 (9.0-12.0) sec INR 0.9 (<1.2) APTT 26.4 (22.0-30.0) sec D-Dimer 1.67 H (<0.60) mg/L FEU Sodium (137-145) mmol/L Potassium (3.5-5.1) mmol/L Chloride (98-107) mmol/L Carbon Dioxide (22-30) mmol/L Anion Gap mmol/L BUN (9-20) mg/dL Creatinine (0.66-1.25) mg/dL Est GFR (CKD-EPI)AfAm (>60 ml/min/1.73 sqM) Est GFR (CKD-EPI)NonAf (>60 ml/min/1.73 sqM) Glucose (74-99) mg/dL Plasma Lactic Acid Will 1.3 (0.7-2.0) mmol/L Calcium (8.4-10.2) mg/dL Magnesium (1.6-2.3) mg/dL Ferritin (22.0-322.0) ng/mL Total Bilirubin (0.2-1.3) mg/dL AST (17-59) U/L ALT (4-49) U/L Alkaline Phosphatase (38-126) U/L Lactate Dehydrogenase (313-618) U/L C-Reactive Protein (<10.0) mg/L Total Protein (6.3-8.2) g/dL Albumin (3.5-5.0) g/dL Procalcitonin (0.02-0.09) ng/mL Urine Color Urine Appearance (Clear) Urine pH (5.0-8.0) Ur Specific [place] (1.001-1.035) Urine Protein (Negative) Urine Glucose (UA) (Negative) Urine Ketones (Negative) Urine Blood (Negative) Urine Nitrite (Negative) Urine Bilirubin (Negative) Urine Urobilinogen (<2.0) mg/dL Ur Leukocyte Esterase (Negative) Urine RBC (0-5) /hpf Urine WBC (0-5) /hpf Ur Squamous Epith Cells (0-4) /hpf Granular Casts (0) /lpf Urine Mucus (None) /hpf C. difficile (EIA) Intrp (Negative) Coronavirus (PCR) (Not Detected) Influenza Type A RNA Not Detected (Not Detectd) Influenza Type B (PCR) Not Detected (Not Detectd) 09/07/20 09/07/20 09/07/20 Range/Units 16:10 16:10 18:26 WBC (3.8-10.6) k/uL RBC (4.30-5.90) m/uL Hgb (13.0-17.5) gm/dL Hct (39.0-53.0) % MCV (80.0-100.0) fL MCH (25.0-35.0) pg MCHC (31.0-37.0) g/dL RDW (11.5-15.5) % Plt Count (150-450) k/uL MPV Neutrophils % % Lymphocytes % % Monocytes % % Eosinophils % % Basophils % % Neutrophils # (1.3-7.7) k/uL Lymphocytes # (1.0-4.8) k/uL Monocytes # (0-1.0) k/uL Eosinophils # (0-0.7) k/uL Basophils # (0-0.2) k/uL PT (9.0-12.0) sec INR (<1.2) APTT (22.0-30.0) sec D-Dimer (<0.60) mg/L FEU Sodium (137-145) mmol/L Potassium (3.5-5.1) mmol/L Chloride (98-107) mmol/L Carbon Dioxide (22-30) mmol/L Anion Gap mmol/L BUN (9-20) mg/dL Creatinine (0.66-1.25) mg/dL Est GFR (CKD-EPI)AfAm (>60 ml/min/1.73 sqM) Est GFR (CKD-EPI)NonAf (>60 ml/min/1.73 sqM) Glucose (74-99) mg/dL Plasma Lactic Acid Will (0.7-2.0) mmol/L Calcium (8.4-10.2) mg/dL Magnesium (1.6-2.3) mg/dL Ferritin (22.0-322.0) ng/mL Total Bilirubin (0.2-1.3) mg/dL AST (17-59) U/L ALT (4-49) U/L Alkaline Phosphatase (38-126) U/L Lactate Dehydrogenase (313-618) U/L C-Reactive Protein (<10.0) mg/L Total Protein (6.3-8.2) g/dL Albumin (3.5-5.0) g/dL Procalcitonin 0.11 H (0.02-0.09) ng/mL Urine Color Urine Appearance (Clear) Urine pH (5.0-8.0) Ur Specific [place] (1.001-1.035) Urine Protein (Negative) Urine Glucose (UA) (Negative) Urine Ketones (Negative) Urine Blood (Negative) Urine Nitrite (Negative) Urine Bilirubin (Negative) Urine Urobilinogen (<2.0) mg/dL Ur Leukocyte Esterase (Negative) Urine RBC (0-5) /hpf Urine WBC (0-5) /hpf Ur Squamous Epith Cells (0-4) /hpf Granular Casts (0) /lpf Urine Mucus (None) /hpf C. difficile (EIA) Intrp (Negative) Coronavirus (PCR) Not Detected Not Detected (Not Detected) Influenza Type A RNA (Not Detectd) Influenza Type B (PCR) (Not Detectd) 09/08/20 09/08/20 09/08/20 Range/Units 05:26 05:26 15:15 WBC 5.1 (3.8-10.6) k/uL RBC 4.47 (4.30-5.90) m/uL Hgb 13.9 (13.0-17.5) gm/dL Hct 42.9 (39.0-53.0) % MCV 95.9 (80.0-100.0) fL MCH 31.0 (25.0-35.0) pg MCHC 32.3 (31.0-37.0) g/dL RDW 15.4 (11.5-15.5) % Plt Count 130 L (150-450) k/uL MPV 7.5 Neutrophils % 93 % Lymphocytes % 5 % Monocytes % 1 % Eosinophils % 0 % Basophils % 0 % Neutrophils # 4.7 (1.3-7.7) k/uL Lymphocytes # 0.2 L (1.0-4.8) k/uL Monocytes # 0.1 (0-1.0) k/uL Eosinophils # 0.0 (0-0.7) k/uL Basophils # 0.0 (0-0.2) k/uL PT (9.0-12.0) sec INR (<1.2) APTT (22.0-30.0) sec D-Dimer (<0.60) mg/L FEU Sodium 131 L (137-145) mmol/L Potassium 4.5 (3.5-5.1) mmol/L Chloride 103 (98-107) mmol/L Carbon Dioxide 19 L (22-30) mmol/L Anion Gap 9 mmol/L BUN 13 (9-20) mg/dL Creatinine 0.55 L (0.66-1.25) mg/dL Est GFR (CKD-EPI)AfAm >90 (>60 ml/min/1.73 sqM) Est GFR (CKD-EPI)NonAf >90 (>60 ml/min/1.73 sqM) Glucose 122 H (74-99) mg/dL Plasma Lactic Acid Will (0.7-2.0) mmol/L Calcium 8.2 L (8.4-10.2) mg/dL Magnesium (1.6-2.3) mg/dL Ferritin (22.0-322.0) ng/mL Total Bilirubin (0.2-1.3) mg/dL AST (17-59) U/L ALT (4-49) U/L Alkaline Phosphatase (38-126) U/L Lactate Dehydrogenase (313-618) U/L C-Reactive Protein (<10.0) mg/L Total Protein (6.3-8.2) g/dL Albumin (3.5-5.0) g/dL Procalcitonin (0.02-0.09) ng/mL Urine Color Urine Appearance (Clear) Urine pH (5.0-8.0) Ur Specific [place] (1.001-1.035) Urine Protein (Negative) Urine Glucose (UA) (Negative) Urine Ketones (Negative) Urine Blood (Negative) Urine Nitrite (Negative) Urine Bilirubin (Negative) Urine Urobilinogen (<2.0) mg/dL Ur Leukocyte Esterase (Negative) Urine RBC (0-5) /hpf Urine WBC (0-5) /hpf Ur Squamous Epith Cells (0-4) /hpf Granular Casts (0) /lpf Urine Mucus (None) /hpf C. difficile (EIA) Intrp Negative (Negative) Coronavirus (PCR) (Not Detected) Influenza Type A RNA (Not Detectd) Influenza Type B (PCR) (Not Detectd) 09/09/20 09/09/20 09/09/20 Range/Units 09:53 09:53 09:53 WBC 2.4 L (3.8-10.6) k/uL RBC 4.22 L (4.30-5.90) m/uL Hgb 12.9 L (13.0-17.5) gm/dL Hct 38.8 L (39.0-53.0) % MCV 91.9 (80.0-100.0) fL MCH 30.6 (25.0-35.0) pg MCHC 33.4 (31.0-37.0) g/dL RDW 15.4 (11.5-15.5) % Plt Count 109 L (150-450) k/uL MPV 7.6 Neutrophils % 88 % Lymphocytes % 8 % Monocytes % 2 % Eosinophils % 0 % Basophils % 0 % Neutrophils # 2.1 (1.3-7.7) k/uL Lymphocytes # 0.2 L (1.0-4.8) k/uL Monocytes # 0.1 (0-1.0) k/uL Eosinophils # 0.0 (0-0.7) k/uL Basophils # 0.0 (0-0.2) k/uL PT (9.0-12.0) sec INR (<1.2) APTT (22.0-30.0) sec D-Dimer 2.24 H (<0.60) mg/L FEU Sodium (137-145) mmol/L Potassium (3.5-5.1) mmol/L Chloride (98-107) mmol/L Carbon Dioxide (22-30) mmol/L Anion Gap mmol/L BUN (9-20) mg/dL Creatinine (0.66-1.25) mg/dL Est GFR (CKD-EPI)AfAm (>60 ml/min/1.73 sqM) Est GFR (CKD-EPI)NonAf (>60 ml/min/1.73 sqM) Glucose (74-99) mg/dL Plasma Lactic Acid Will (0.7-2.0) mmol/L Calcium (8.4-10.2) mg/dL Magnesium (1.6-2.3) mg/dL Ferritin (22.0-322.0) ng/mL Total Bilirubin (0.2-1.3) mg/dL AST (17-59) U/L ALT (4-49) U/L Alkaline Phosphatase (38-126) U/L Lactate Dehydrogenase (313-618) U/L C-Reactive Protein (<10.0) mg/L Total Protein (6.3-8.2) g/dL Albumin (3.5-5.0) g/dL Procalcitonin 0.14 H (0.02-0.09) ng/mL Urine Color Urine Appearance (Clear) Urine pH (5.0-8.0) Ur Specific [place] (1.001-1.035) Urine Protein (Negative) Urine Glucose (UA) (Negative) Urine Ketones (Negative) Urine Blood (Negative) Urine Nitrite (Negative) Urine Bilirubin (Negative) Urine Urobilinogen (<2.0) mg/dL Ur Leukocyte Esterase (Negative) Urine RBC (0-5) /hpf Urine WBC (0-5) /hpf Ur Squamous Epith Cells (0-4) /hpf Granular Casts (0) /lpf Urine Mucus (None) /hpf C. difficile (EIA) Intrp (Negative) Coronavirus (PCR) (Not Detected) Influenza Type A RNA (Not Detectd) Influenza Type B (PCR) (Not Detectd) 09/09/20 Range/Units 09:53 WBC (3.8-10.6) k/uL RBC (4.30-5.90) m/uL Hgb (13.0-17.5) gm/dL Hct (39.0-53.0) % MCV (80.0-100.0) fL MCH (25.0-35.0) pg MCHC (31.0-37.0) g/dL RDW (11.5-15.5) % Plt Count (150-450) k/uL MPV Neutrophils % % Lymphocytes % % Monocytes % % Eosinophils % % Basophils % % Neutrophils # (1.3-7.7) k/uL Lymphocytes # (1.0-4.8) k/uL Monocytes # (0-1.0) k/uL Eosinophils # (0-0.7) k/uL Basophils # (0-0.2) k/uL PT (9.0-12.0) sec INR (<1.2) APTT (22.0-30.0) sec D-Dimer (<0.60) mg/L FEU Sodium 127 L (137-145) mmol/L Potassium 4.2 (3.5-5.1) mmol/L Chloride 98 (98-107) mmol/L Carbon Dioxide 22 (22-30) mmol/L Anion Gap 7 mmol/L BUN 11 (9-20) mg/dL Creatinine 0.54 L (0.66-1.25) mg/dL Est GFR (CKD-EPI)AfAm >90 (>60 ml/min/1.73 sqM) Est GFR (CKD-EPI)NonAf >90 (>60 ml/min/1.73 sqM) Glucose 151 H (74-99) mg/dL Plasma Lactic Acid Will (0.7-2.0) mmol/L Calcium 8.4 (8.4-10.2) mg/dL Magnesium (1.6-2.3) mg/dL Ferritin (22.0-322.0) ng/mL Total Bilirubin 0.4 (0.2-1.3) mg/dL AST 28 (17-59) U/L ALT 58 H (4-49) U/L Alkaline Phosphatase 64 (38-126) U/L Lactate Dehydrogenase 404 (313-618) U/L C-Reactive Protein 66.9 H (<10.0) mg/L Total Protein 5.4 L (6.3-8.2) g/dL Albumin 3.2 L (3.5-5.0) g/dL Procalcitonin (0.02-0.09) ng/mL Urine Color Urine Appearance (Clear) Urine pH (5.0-8.0) Ur Specific [place] (1.001-1.035) Urine Protein (Negative) Urine Glucose (UA) (Negative) Urine Ketones (Negative) Urine Blood (Negative) Urine Nitrite (Negative) Urine Bilirubin (Negative) Urine Urobilinogen (<2.0) mg/dL Ur Leukocyte Esterase (Negative) Urine RBC (0-5) /hpf Urine WBC (0-5) /hpf Ur Squamous Epith Cells (0-4) /hpf Granular Casts (0) /lpf Urine Mucus (None) /hpf C. difficile (EIA) Intrp (Negative) Coronavirus (PCR) (Not Detected) Influenza Type A RNA (Not Detectd) Influenza Type B (PCR) (Not Detectd) - EKG Data EKG Comments: EKG demonstrates a sinus tachycardia with a ventricular rate of 113. When necessary interval 138. QRS 80. QTC of 4:30. The T waves in V2 and V3. No acute ST segment elevations or depressions Disposition Clinical Impression: Fever, Cough, Small cell lung cancer Disposition: ADMITTED IP TO THIS HOSP Condition: Stable Is patient prescribed a controlled substance at d/c from ED?: No Decision to Admit Reason: Admit from EC Decision Date: 09/07/20 Decision Time: 18:56
[2020-09-07] MEDS ORDERED: NALOXONE 0.4 MG/ML 1 ML VIAL IV PRN (18:56)
[2020-09-07] MEDS ORDERED: IBUPROFEN 400 MG TAB PO PRN (18:56)
[2020-09-07] MEDS ORDERED: AZITHROMYCIN 500 MG in SODIUM CHLORIDE 0.9% 250 ML IVPB STA (19:29)
[2020-09-07 23:59] LABS: Ferritin 4004.6 ng/mL (22.0-322.0)
[2020-09-08 06:10] LABS: Basophils % (A) 0 %; Eosinophils % (A) 0 %; HCT 42.9 % (39.0-53.0); HGB 13.9 gm/dL (13.0-17.5); Lymphocytes # (A) 0.2 k/uL (1.0-4.8); Lymphocytes % (A) 5 %; MCHC 32.3 g/dL (31.0-37.0); MCV 95.9 fL (80.0-100.0); Mean Platelet Volume 7.5; Monocytes # (A) 0.1 k/uL (0-1.0); Monocytes % (A) 1 %; Neutrophils # (A) 4.7 k/uL (1.3-7.7); Neutrophils % (A) 93 %; Platelet Count 130 k/uL (150-450); RBC 4.47 m/uL (4.30-5.90); RDW 15.4 % (11.5-15.5); WBC 5.1 k/uL (3.8-10.6)
[2020-09-08] MEDS: LEVOTHYROXINE 25 MCG TAB PO SCH (06:22)
[2020-09-08 06:31] LABS: African American GFR (CKD) >90 (>60 ml/min/1.73 sqM); Anion Gap 9 mmol/L; Blood Urea Nitrogen 13 mg/dL (9-20); Calcium 8.2 mg/dL (8.4-10.2); Carbon Dioxide 19 mmol/L (22-30); Chloride 103 mmol/L (98-107); Glucose 122 mg/dL (74-99); Non-African American GFR(CKD) >90 (>60 ml/min/1.73 sqM); Potassium 4.5 mmol/L (3.5-5.1); Sodium 131 mmol/L (137-145)
[2020-09-08] MEDS: CHOLECALCIFEROL 1,000 UNIT TAB PO SCH (08:46)
[2020-09-08] MEDS: CYANOCOBALAMIN 500 MCG TAB PO SCH (08:46)
[2020-09-08] MEDS: VITAMIN E (DL,TOCOPHERYL ACET) 400 UNIT CAP PO SCH (08:47)
[2020-09-08] MEDS: MELOXICAM 7.5 MG TAB PO SCH ×2 (08:47→20:57)
[2020-09-08] MEDS: ZINC SULFATE 220 MG CAP PO SCH (08:47)
[2020-09-08] MEDS: ACETAMINOPHEN TAB 325 MG TAB PO PRN ×3 (08:55→20:57)
[2020-09-08] MEDS: SODIUM CHLORIDE 0.9% 1,000 ML IV SCH (10:38)
--- NOTE | 2020-09-08 13:08 | P.HPIM ---
History of Present Illness 64-year-old male with past mental history of lung cancer present emergency department with reported cough and myalgias. Patient was seen in the emergency department 3 days ago for similar complaint. He does have concern for covid r apid testing at that time was negative. Hospitalization was recommended for antibiotics however the patient refused and left. He states he has not improved at all. Patient is currently on chemotherapy for his lung cancer. Last reported chemo session was on Tuesday. Patient denies any headaches or visual changes. No neck stiffness. Denies any back or flank pain. No chest pain. Does admit to mild shortness of breath with a nonproductive cough. No abdominal pain or changes in his bowel or bladder habits. Patient was believed to have Covid 19 but the Covid 19 PCR is negative. Patient the doesn't appear to have any other infection except for some infiltrate in the hilar area. Discussed with infectious disease they're concerned about postobstructive pneumonia because of which infectious disease recommended Zosyn and monitoring overnight today. Patient does have have exposure to family members with Covid 19. Patient was complaining of cough without any significant sputum production. Urinalysis is not consistent with urinary tract infection. Review of Systems REVIEW OF SYSTEMS: CONSTITUTIONAL: No fever, no malaise, no fatigue. HEENT: No recent visual problems or hearing problems. Denied any sore throat. CARDIOVASCULAR: No chest pain, orthopnea, PND, no palpitations, no syncope. PULMONARY: no hemoptysis. GASTROINTESTINAL: No diarrhea, no nausea, no vomiting, no abdominal pain. NEUROLOGICAL: No headaches, no weakness, no numbness. HEMATOLOGICAL: Denies any bleeding or petechiae. GENITOURINARY: Denies any burning micturition, frequency, or urgency. MUSCULOSKELETAL/RHEUMATOLOGICAL: Denies any joint pain, swelling, or any muscle pain. ENDOCRINE: Denies any polyuria or polydipsia. The rest of the 14-point review of systems is negative. Past Medical History Past Medical History: Cancer, COPD Additional Past Medical History / Comment(s): R upper lung cancer. History of Any Multi-Drug Resistant Organisms: None Reported Past Surgical History: No Surgical Hx Reported Additional Past Surgical History / Comment(s): 07/15/16 bronchoscopy with bx. Past Anesthesia/Blood Transfusion Reactions: No Reported Reaction Past Psychological History: No Psychological Hx Reported Smoking Status: Current some day smoker, Former smoker Past Alcohol Use History: None Reported Past Drug Use History: Marijuana - Past Family History Father Family Medical History: Coronary Artery Disease (CAD) Additional Family Medical History / Comment(s): Dad in his late 70's from a complication after a hip fx. Sister(s) Family Medical History: Coronary Artery Disease (CAD) Mother Family Medical History: Coronary Artery Disease (CAD) Additional Family Medical History / Comment(s): Mother at the age of 80 yrs in a MVA. Daughter(s) Family Medical History: No Reported History Medications and Allergies Home Medications Medication Instructions Recorded Confirmed Type Levothyroxine Sodium [Synthroid] 25 mcg PO DAILY 09/27/19 09/07/20 History Amoxicillin/Potassium Clav 1 tab PO Q12HR #20 tab 09/04/20 09/07/20 Rx [Augmentin 875-125 Tablet] Cholecalciferol [Vitamin D3 (25 1,000 unit PO DAILY 09/04/20 09/07/20 History Mcg = 1000 Iu)] Cyanocobalamin (Vitamin B-12) 1,000 mcg PO DAILY 09/04/20 09/07/20 History [Vitamin B-12] Meloxicam [Mobic] 7.5 mg PO BID 09/04/20 09/07/20 History Vitamin E 1,000 unit PO DAILY 09/04/20 09/07/20 History Zinc 50 mg PO DAILY 09/04/20 09/07/20 History predniSONE [Deltasone] 20 mg PO DAILY 09/04/20 09/07/20 History Azithromycin [Zithromax Z-pack (6 See Taper PO DIRECTED 09/07/20 09/07/20 History tabs)] Allergies Allergy/AdvReac Type Severity Reaction Status Date / Time adhesive tape AdvReac Rash/Hives Verified 09/07/20 21:31 Physical Exam Vitals: Vital Signs Temp Pulse Pulse Resp BP BP Pulse Ox 09/08/20 10:41 99.1 F 09/08/20 09:00 101 H 16 09/08/20 08:45 101.0 F H 101 H 16 136/83 92 L 09/08/20 02:45 99.4 F 91 18 147/74 96 09/07/20 21:00 97.9 F 89 18 134/76 96 09/07/20 20:53 98.6 F 95 20 120/68 96 09/07/20 19:41 92 20 126/75 97 09/07/20 18:30 95 20 121/78 98 09/07/20 17:51 100.3 F H 103 H 20 95 09/07/20 17:19 109 H 20 130/84 99 09/07/20 15:28 101.1 F H 140 H 20 103/69 93 L Intake and Output 09/07/20 09/08/20 09/08/20 22:59 06:59 14:59 Intake Total 300 Balance 300 Intake: Oral 300 Other: Voiding Method Toilet Toilet Toilet # Voids 1 2 Weight 58.967 kg PHYSICAL EXAMINATION: GENERAL: The patient is alert and oriented x3, not in any acute distress. Well developed, well nourished. HEENT: Pupils are round and equally reacting to light. EOMI. No scleral icterus. No conjunctival pallor. Normocephalic, atraumatic. No pharyngeal erythema. No thyromegaly. CARDIOVASCULAR: S1 and S2 present. No murmurs, rubs, or gallops. PULMONARY: Chest is clear to auscultation, no wheezing or crackles. ABDOMEN: Soft, nontender, nondistended, normoactive bowel sounds. No palpable organomegaly. MUSCULOSKELETAL: No joint swelling or deformity. EXTREMITIES: No cyanosis, clubbing, or pedal edema. NEUROLOGICAL: Gross neurological examination did not reveal any focal deficits. SKIN: No rashes. Note: Because of COVID 19 isolation, some of the history and physical exam findings are indirect and obtained from nursing staff, and other physician examinations to avoid unnecessary contact with the patient. Results CBC & Chem 7: 09/08/20 05:26 09/08/20 05:26 Labs: Abnormal Lab Results - Last 24 Hours (Table) 09/07/20 09/07/20 09/07/20 Range/Units 16:10 16:10 16:10 RDW 15.6 H (11.5-15.5) % Plt Count (150-450) k/uL Lymphocytes # 0.3 L (1.0-4.8) k/uL D-Dimer (<0.60) mg/L FEU Sodium 129 L (137-145) mmol/L Carbon Dioxide 18 L (22-30) mmol/L Creatinine 0.63 L (0.66-1.25) mg/dL Glucose 135 H (74-99) mg/dL Calcium (8.4-10.2) mg/dL Ferritin 4004.6 H (22.0-322.0) ng/mL ALT 126 H (4-49) U/L Lactate Dehydrogenase 620 H (313-618) U/L C-Reactive Protein 51.1 H (<10.0) mg/L Procalcitonin (0.02-0.09) ng/mL Urine Protein 2+ H (Negative) Urine Ketones 2+ H (Negative) Urine Blood Trace H (Negative) Urine Mucus Occasional H (None) /hpf 09/07/20 09/07/20 09/08/20 Range/Units 16:10 16:10 05:26 RDW (11.5-15.5) % Plt Count 130 L (150-450) k/uL Lymphocytes # 0.2 L (1.0-4.8) k/uL D-Dimer 1.67 H (<0.60) mg/L FEU Sodium (137-145) mmol/L Carbon Dioxide (22-30) mmol/L Creatinine (0.66-1.25) mg/dL Glucose (74-99) mg/dL Calcium (8.4-10.2) mg/dL Ferritin (22.0-322.0) ng/mL ALT (4-49) U/L Lactate Dehydrogenase (313-618) U/L C-Reactive Protein (<10.0) mg/L Procalcitonin 0.11 H (0.02-0.09) ng/mL Urine Protein (Negative) Urine Ketones (Negative) Urine Blood (Negative) Urine Mucus (None) /hpf 09/08/20 Range/Units 05:26 RDW (11.5-15.5) % Plt Count (150-450) k/uL Lymphocytes # (1.0-4.8) k/uL D-Dimer (<0.60) mg/L FEU Sodium 131 L (137-145) mmol/L Carbon Dioxide 19 L (22-30) mmol/L Creatinine 0.55 L (0.66-1.25) mg/dL Glucose 122 H (74-99) mg/dL Calcium 8.2 L (8.4-10.2) mg/dL Ferritin (22.0-322.0) ng/mL ALT (4-49) U/L Lactate Dehydrogenase (313-618) U/L C-Reactive Protein (<10.0) mg/L Procalcitonin (0.02-0.09) ng/mL Urine Protein (Negative) Urine Ketones (Negative) Urine Blood (Negative) Urine Mucus (None) /hpf Thrombosis Risk Factor Assmnt - Choose All That Apply Any of the Below Risk Factors Present?: Yes Each Factor Represents 1 point: Abnormal pulmonary function (COPD) Other Risk Factors: Yes Each Risk Factor Represents 2 Points: Age 61-74 years, Malignancy Other congenital or acquired thrombophilia - If yes, enter type in comment: No Thrombosis Risk Factor Assessment Total Risk Factor Score: 5 Thrombosis Risk Factor Assessment Level: High Risk Assessment and Plan Plan: -Fever possible sepsis may be secondary to postobstructive pneumonia secondary to lung cancer chemotherapy itself. Patient was started on Zosyn as recommended by infectious disease patient will be monitored. Patient the has a negative Covid 19 PCR. 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
[2020-09-08 14:16] VITALS: BMI 21.6
[2020-09-08] MEDS: PIPERACILLIN-TAZOBACTAM 3.375 GM in SODIUM CHLORIDE 0.9% 100 ML IVPB SCH ×2 (15:06→23:25)
[2020-09-08] MEDS: FAMOTIDINE 20 MG TAB PO SCH (20:56)
[2020-09-08] MEDS: dexAMETHasone 2 MG TAB PO SCH (23:25)
--- NOTE | 2020-09-08 23:47 | CONS ---
CONSULTATION DATE OF SERVICE: 09/08/2020 REASON FOR CONSULTATION: Fever. HISTORY OF PRESENT ILLNESS: The patient is a 64-year-old male with past medical history significant for lung cancer, currently on chemotherapy. The patient's tested positive for COVID about a week ago. However, the patient said that they have been not seeing each other and staying in separate room. The patient presented to the ER about 3 days ago with symptoms of cough, generalized body aches and shortness of breath. The patient did have rapid COVID test, which came back negative and the patient subsequently discharged home. The patient is now presenting back to the hospital with chief complaints of weakness, no energy. Denies having any chest pain. He did have a cough moderate intensity, not bringing up any sputum. No nausea, no vomiting. No abdominal pain. He did have some diarrhea. On presentation to the hospital yesterday afternoon, the patient did spike a fever of 101 degrees Fahrenheit and did have a fever of 101 this morning and afternoon. The patient is not hypoxic or requiring supplemental oxygen. The patient did have a normal white count with lymphopenia, elevated D-dimer, elevated ferritin. LDH, CRP, procalcitonin were mildly elevated as well. Devine PCR came back negative. Influenza PCR was negative. The patient did have a chest x-ray which shows right perihilar masslike infiltrate with also infiltrate extending into the right upper lobe not changed compared to recent exam and slight increased diffuse pulmonary interstitial infiltrate to the left lung compared to the recent exam. The patient has been admitted to the hospital. He initially received a dose of Rocephin and Zithromax. Subsequently, the patient was started on Zosyn. Infectious Disease was consulted for further management of antibiotic therapy. REVIEW OF SYSTEMS: Positive points have been mentioned in HPI. Rest of systems are negative. PAST MEDICAL HISTORY: Right upper lung cancer, COPD. PAST SURGICAL HISTORY: Bronchoscopy with biopsy. SOCIAL HISTORY: Current every day smoker. Also admitted to marijuana use. FAMILY HISTORY: Father history of coronary artery disease. ALLERGIES: Allergies to ADHESIVE TAPE. MEDICATIONS: Medications include the patient is currently on Tylenol, vitamin D3, Lovenox, Pepcid, Synthroid, Mobic, Narcan, Zosyn and zinc. PHYSICAL EXAMINATION: Blood pressure is 159/80 with a pulse of 99, temperature 100.1, T-max is 101. He is 96% on room air. General description is a middle-aged male lying in bed in no distress. No tachypnea or accessory muscle of respiration use. HEENT: Examination shows no pallor, no scleral icterus. Oral mucous membranes dry. NECK: Trachea central. No thyromegaly. LUNGS: Unlabored breathing, decreased intensity of breath sounds. No wheeze. HEART: S1, S2. Regular rate and rhythm. ABDOMEN: Soft, no tenderness. No guarding or rigidity. EXTREMITIES: No edema of feet. SKIN EXAMINATION: No rash or mass palpable. LABS: Hemoglobin 13.9, white count 5.1, BUN of 13, creatinine 0.55. Ferritin, ALT, LDH, CRP and procalcitonin elevated. Devine PCR negative. Influenza PCR negative. Chest x-ray report as mentioned above. DIAGNOSTIC IMPRESSION: The patient admitted to the hospital with fever, myalgias, cough and this patient's diagnosed with COVID-19 about a week ago, high clinical suspicious for acute COVID- 19 pneumonia as well as chest x-ray on this admission showing increasing ground-glass opacities to the left lung with some masslike density of the right lung with elevated procalcitonin underlying component of postobstructive pneumonia not entirely excluded. PLAN: 1. We will try to obtain sputum for Gram stain and culture. 2. Zosyn 3.375 grams q.8 hours to continue. 3. Will continue the patient on Lovenox, zinc sulfate, dexamethasone. 4. Will repeat chest x-ray and inflammatory marker tomorrow. 5. Droplet isolation and respiratory support. 6. We will follow on clinical condition and culture to further adjust medication if needed. Thank you for this consultation. Will follow this patient along with you. MMODL / IJN: [id number] /
[2020-09-09] MEDS: SODIUM CHLORIDE 0.9% 1,000 ML IV SCH ×2 (00:51→05:48)
[2020-09-09] MEDS: LEVOTHYROXINE 25 MCG TAB PO SCH (05:42)
[2020-09-09] MEDS: PIPERACILLIN-TAZOBACTAM 3.375 GM in SODIUM CHLORIDE 0.9% 100 ML IVPB SCH ×2 (07:59→15:15)
[2020-09-09] MEDS: ENOXAPARIN 40 MG/0.4 ML SYRINGE SQ SCH (07:59)
[2020-09-09] MEDS: VITAMIN E (DL,TOCOPHERYL ACET) 400 UNIT CAP PO SCH (08:00)
[2020-09-09] MEDS: dexAMETHasone 2 MG TAB PO SCH (08:00)
[2020-09-09] MEDS: ZINC SULFATE 220 MG CAP PO SCH (08:00)
[2020-09-09] MEDS: FAMOTIDINE 20 MG TAB PO SCH ×2 (08:00→20:05)
[2020-09-09] MEDS: CYANOCOBALAMIN 500 MCG TAB PO SCH (08:00)
[2020-09-09] MEDS: MELOXICAM 7.5 MG TAB PO SCH ×2 (08:00→20:05)
[2020-09-09] MEDS: CHOLECALCIFEROL 1,000 UNIT TAB PO SCH (08:00)
--- NOTE | 2020-09-09 08:34 | XR ---
EXAMINATION TYPE: XR chest 1V portable DATE OF EXAM: 09/09/2020 COMPARISON: 09/07/2020 HISTORY: Cough TECHNIQUE: Single frontal view of the chest is obtained. FINDINGS: Right perihilar subsegmental consolidation noted. Volume loss on the right noted. Density along the right paratracheal line with extension of the right apex noted. Chronic deformity left clav icle. Hyperinflation suggests COPD. IMPRESSION: 1. Right perihilar masslike area of infiltrate extending in the right upper lobe is stable.
[2020-09-09 10:34] LABS: Basophils % (A) 0 %; Eosinophils % (A) 0 %; HCT 38.8 % (39.0-53.0); HGB 12.9 gm/dL (13.0-17.5); Lymphocytes # (A) 0.2 k/uL (1.0-4.8); Lymphocytes % (A) 8 %; MCH 30.6 pg (25.0-35.0); MCHC 33.4 g/dL (31.0-37.0); MCV 91.9 fL (80.0-100.0); Mean Platelet Volume 7.6; Monocytes # (A) 0.1 k/uL (0-1.0); Monocytes % (A) 2 %; Neutrophils # (A) 2.1 k/uL (1.3-7.7); Neutrophils % (A) 88 %; Platelet Count 109 k/uL (150-450); RBC 4.22 m/uL (4.30-5.90); RDW 15.4 % (11.5-15.5); WBC 2.4 k/uL (3.8-10.6)
[2020-09-09 10:57] LABS: ALT 58 U/L (4-49); AST 28 U/L (17-59); African American GFR (CKD) >90 (>60 ml/min/1.73 sqM); Albumin 3.2 g/dL (3.5-5.0); Alkaline Phosphatase 64 U/L (38-126); Anion Gap 7 mmol/L; Blood Urea Nitrogen 11 mg/dL (9-20); C Reactive Protein 66.9 mg/L (<10.0); Calcium 8.4 mg/dL (8.4-10.2); Carbon Dioxide 22 mmol/L (22-30); Chloride 98 mmol/L (98-107); Glucose 151 mg/dL (74-99); LDH 404 U/L (313-618); Non-African American GFR(CKD) >90 (>60 ml/min/1.73 sqM); Potassium 4.2 mmol/L (3.5-5.1); Sodium 127 mmol/L (137-145); Total Bilirubin 0.4 mg/dL (0.2-1.3); Total Protein 5.4 g/dL (6.3-8.2)
--- NOTE | 2020-09-09 11:55 | P.PN ---
Subjective Patient is admitted for fevers and is being treated for postobstructive pneumonia. Patient is negative for Covid 19. I do not believe patient is Covid at this time. Patient is still having some low-grade fevers. Patient has elevated INR patient's serum sodium has gone down to 127 area did possibly secondary to SIADH and patient will be started on fluid restriction. Constitutional: Denied any fatigue denied any fever. Cardio vascular: denied any chest pain, palpitations Gastrointestinal denied any nausea vomiting Pulmonary: Denied any shortness of breath cough Neurologic denied any new focal deficits All inpatient medications were reviewed and appropriate changes in these medications as dictated in the interval history and assessment and plan. Objective - Vital Signs Vital signs: Vital Signs Temp 99.5 F 09/09/20 08:07 Pulse 91 09/09/20 08:07 Resp 14 09/09/20 08:07 BP 146/88 09/09/20 08:07 Pulse Ox 96 09/09/20 08:07 Intake & Output 09/08/20 09/09/20 09/09/20 18:59 06:59 18:59 Intake Total 800 Balance 800 Weight 58.967 kg Intake: Oral 800 Other: Voiding Method Toilet Toilet Toilet # Voids 2 1 2 - Exam PHYSICAL EXAMINATION: GENERAL: The patient is alert and oriented x3, not in any acute distress. Well developed, well nourished. HEENT: Pupils are round and equally reacting to light. EOMI. No scleral icterus. No conjunctival pallor. Normocephalic, atraumatic. No pharyngeal erythema. No thyromegaly. CARDIOVASCULAR: S1 and S2 present. No murmurs, rubs, or gallops. PULMONARY: Chest is clear to auscultation, no wheezing or crackles. ABDOMEN: Soft, nontender, nondistended, normoactive bowel sounds. No palpable organomegaly. MUSCULOSKELETAL: No joint swelling or deformity. EXTREMITIES: No cyanosis, clubbing, or pedal edema. NEUROLOGICAL: Gross neurological examination did not reveal any focal deficits. SKIN: No rashes. - Labs CBC & Chem 7: 09/09/20 09:53 09/09/20 09:53 Labs: Abnormal Lab Results - Last 24 Hours (Table) 09/09/20 09/09/20 09/09/20 Range/Units 09:53 09:53 09:53 WBC 2.4 L (3.8-10.6) k/uL RBC 4.22 L (4.30-5.90) m/uL Hgb 12.9 L (13.0-17.5) gm/dL Hct 38.8 L (39.0-53.0) % Plt Count 109 L (150-450) k/uL Lymphocytes # 0.2 L (1.0-4.8) k/uL D-Dimer 2.24 H (<0.60) mg/L FEU Sodium 127 L (137-145) mmol/L Creatinine 0.54 L (0.66-1.25) mg/dL Glucose 151 H (74-99) mg/dL ALT 58 H (4-49) U/L C-Reactive Protein 66.9 H (<10.0) mg/L Total Protein 5.4 L (6.3-8.2) g/dL Albumin 3.2 L (3.5-5.0) g/dL Microbiology - Last 24 Hours (Table) 09/07/20 16:10 Blood Culture - Preliminary Blood No Growth after 24 hours Assessment and Plan Plan: -Fever possible sepsis may be secondary to postobstructive pneumonia or secondary to lung cancer chemotherapy itself. Patient is on Zosyn as recom mended by infectious disease patient will be monitored. Patient the has a negative Covid 19 PCR. -hyponatremia : Possibly secondary to SIADH patient was started on fluid restriction. Repeat basic metabolic profile tomorrow -Lung cancer status post chemotherapy -COPD without any acute exacerbation -Continued nicotine use: Counseling was provided
--- NOTE | 2020-09-09 22:19 | PN ---
PROGRESS NOTE DATE OF SERVICE: 09/09/2020 REASON FOR FOLLOWUP: Pneumonia and a question of postoperative versus viral. INTERVAL HISTORY: Patient overall fever pattern has improved. Last temperature was last evening of 101.1, afebrile since then. The patient is currently breathing comfortably on room air. Denies having chest pain. He did have minimal cough with occasional sputum. No nausea, no vomiting. No abdominal pain or any worsening diarrhea. PHYSICAL EXAMINATION: Blood pressure 137/77 with a pulse of 94, temperature 98.1. He is 95% on room air. General description is a middle-aged male lying in bed in no distress. Respiratory system: Unlabored breathing, decreased breath sounds at the base. No wheeze. HEART: S1, S2. Regular rate and rhythm. Abdomen soft. No tenderness. LABS: Hemoglobin is 12.9 with white count 2.4. D-dimer 2.2. Creatinine 0.90. Blood culture elevated. CRP also elevated. Urine is negative. Devine PCR came back negative. Blood cultures unable to provide any sputum. DIAGNOSTIC IMPRESSION/PLAN: Patient admitted to the hospital with fever with concern for pneumonia, high clinical suspicious for Covid 19 on the basis of the x-ray findings was significantly for elevated CRP. However, the patient's procalcitonin is elevated and possible component of bacterial pneumonia. The patient clinically responding to the Zosyn and Zithromax, dexamethasone and Lovenox. Plan to finish therapy with oral Augmentin, dexamethasone and Zithromax and close outpatient followup. MMODL / IJN: [id number] /
[2020-09-10] MEDS: PIPERACILLIN-TAZOBACTAM 3.375 GM in SODIUM CHLORIDE 0.9% 100 ML IVPB SCH ×2 (00:15→07:56)
[2020-09-10] MEDS: LEVOTHYROXINE 25 MCG TAB PO SCH (06:29)
[2020-09-10 07:56] VITALS: BP 151/80; PULSE 93; RESP 16; TEMP 99.9
[2020-09-10] MEDS: FAMOTIDINE 20 MG TAB PO SCH (07:57)
[2020-09-10] MEDS: VITAMIN E (DL,TOCOPHERYL ACET) 400 UNIT CAP PO SCH (07:57)
[2020-09-10] MEDS: dexAMETHasone 2 MG TAB PO SCH (07:57)
[2020-09-10] MEDS: MELOXICAM 7.5 MG TAB PO SCH (07:58)
[2020-09-10] MEDS: ACETAMINOPHEN TAB 325 MG TAB PO PRN (07:58)
[2020-09-10] MEDS: ZINC SULFATE 220 MG CAP PO SCH (07:58)
[2020-09-10] MEDS: CHOLECALCIFEROL 1,000 UNIT TAB PO SCH (07:58)
[2020-09-10] MEDS: CYANOCOBALAMIN 500 MCG TAB PO SCH (07:59)
[2020-09-10] MEDS: ENOXAPARIN 40 MG/0.4 ML SYRINGE SQ SCH (08:00)
[2020-09-10 08:22] LABS: African American GFR (CKD) >90 (>60 ml/min/1.73 sqM); Anion Gap 7 mmol/L; Blood Urea Nitrogen 12 mg/dL (9-20); Calcium 8.5 mg/dL (8.4-10.2); Carbon Dioxide 24 mmol/L (22-30); Chloride 98 mmol/L (98-107); Glucose 94 mg/dL (74-99); Non-African American GFR(CKD) >90 (>60 ml/min/1.73 sqM); Sodium 129 mmol/L (137-145)
--- NOTE | 2020-09-10 12:55 | PN ---
PROGRESS NOTE DATE OF SERVICE: 09/10/2020 REASON FOR FOLLOWUP: Pneumonia. INTERVAL COURSE: The patient is currently afebrile. The patient is breathing comfortably, currently on room air. Patient denies having any chest pain. Did have some cough, not bringing up any sputum, no nausea, no vomiting, no abdominal pain, no diarrhea. PHYSICAL EXAMINATION: Blood pressure 151/80 with a pulse of 98, temperature 98, he is 95% on room air. General description is a middle-aged male, lying in bed in no distress. RESPIRATORY SYSTEM: Unlabored breathing, clear to nursing staff. EXTREMITIES: No edema of the feet. LABS: Creatinine 0.68. Blood culture has been negative. DIAGNOSTIC IMPRESSION AND PLAN: Patient hospital with fever. Concern for pneumonia, possible postobstructive versus viral. Local chest and abdomen negative. The patient is currently afebrile. Not requiring supplemental oxygen. Recommend finish therapy with Augmentin for about a week along with Dexamethasone. This was discussed with the admitting physician working on discharge. MMODL / IJN: [id number] /
--- NOTE | 2020-09-10 14:01 | P.DS ---
Providers Date of admission: 09/09/20 10:33 Attending physician: Samuel Cook MD Consults: 09/08/20 09:47 Consult Physician Routine Consulting Provider: Huma Mckenzie Consult Reason/Comments: fever, cough Do you want consulting provider notified?: Yes Primary care physician: Suzan Scanlonarlo [facility] Course: Patient is admitted for fevers and is being treated for postobstructive pneumonia. Patient is negative for Covid 19. I do not believe patient is Covid at this time. Patient is still having some low-grade fevers. Patient has elevated INR patient's serum sodium has gone down to 127 area did possibly secondary to SIADH and patient will be started on fluid restriction. 09/10/2020 Patient is clinically doing well. Patient will be discharged on the Augmentin for 7 more days. Patient had a low-grade fever here today below 100 about 99.8. PHYSICAL EXAMINATION: GENERAL: The patient is alert and oriented x3, not in any acute distress. Well developed, well nourished. HEENT: Pupils are round and equally reacting to light. EOMI. No scleral icterus. No conjunctival pallor. Normocephalic, atraumatic. No pharyngeal erythema. No thyromegaly. CARDIOVASCULAR: S1 and S2 present. No murmurs, rubs, or gallops. PULMONARY: Chest is clear to auscultation, no wheezing or crackles. ABDOMEN: Soft, nontender, nondistended, normoactive bowel sounds. No palpable organomegaly. MUSCULOSKELETAL: No joint swelling or deformity. EXTREMITIES: No cyanosis, clubbing, or pedal edema. NEUROLOGICAL: Gross neurological examination did not reveal any focal deficits. SKIN: No rashes. Assessment and Plan Plan: -Fever possible sepsis may be secondary to postobstructive pneumonia, patient is being discharged on Augmentin Patient the has a negative Covid 19 PCR. -hyponatremia : Possibly secondary to SIADH mild improvement with fluid restriction patient will continue fluid restriction and follow with nephrology as an outpatient. -Lung cancer status post chemotherapy -COPD without any acute exacerbation -Continued nicotine use: Counseling was provided Patient Condition at Discharge: Stable Plan - Discharge Summary Discharge Rx Participant: No New Discharge Prescriptions: New Amoxic-Pot Clav 875-125Mg [Augmentin 875-125] 1 tab PO Q12HR 7 Days #14 tab Continue Levothyroxine Sodium [Synthroid] 25 mcg PO DAILY Cholecalciferol [Vitamin D3 (25 Mcg = 1000 Iu)] 1,000 unit PO DAILY predniSONE [Deltasone] 20 mg PO DAILY Meloxicam [Mobic] 7.5 mg PO BID Zinc 50 mg PO DAILY Vitamin E 1,000 unit PO DAILY Cyanocobalamin (Vitamin B-12) [Vitamin B-12] 1,000 mcg PO DAILY Discontinued Amoxicillin/Potassium Clav [Augmentin 875-125 Tablet] 1 tab PO Q12HR #20 tab Azithromycin [Zithromax Z-pack (6 tabs)] See Taper PO DIRECTED Discharge Medication List Levothyroxine Sodium [Synthroid] 25 mcg PO DAILY 09/27/19 [History] Cholecalciferol [Vitamin D3 (25 Mcg = 1000 Iu)] 1,000 unit PO DAILY 09/04/20 [History] Cyanocobalamin (Vitamin B-12) [Vitamin B-12] 1,000 mcg PO DAILY 09/04/20 [History] Meloxicam [Mobic] 7.5 mg PO BID 09/04/20 [History] Vitamin E 1,000 unit PO DAILY 09/04/20 [History] Zinc 50 mg PO DAILY 09/04/20 [History] predniSONE [Deltasone] 20 mg PO DAILY 09/04/20 [History] Amoxic-Pot Clav 875-125Mg [Augmentin 875-125] 1 tab PO Q12HR 7 Days #14 tab 09/10/20 [Rx] Follow up Appointment(s)/Referral(s): Suzan Montemayor DO [Primary Care Provider] - 3 Days Fam Armendariz DO [STAFF PHYSICIAN] - 1 Week Patient Instructions/Handouts: Fever in Adults (ED) Activity/Diet/Wound Care/Special Instructions: fluid restriction to 1500 cc activity as tolerated heart healthy diet Discharge Disposition: HOME SELF-CARE
== END 2020-09-10 15:03 | disposition home or self-care (01) | DRG 871 ==
LOC: EC 15:23 → 1SOBS 18:57 → OBSVTOIN 09-09 10:33
PROVIDERS: ADMIT Internal Medicine; ATTEND Internal Medicine
DX: A41.9 Sepsis, unspecified organism (principal); J18.9 Pneumonia, unspecified organism; J44.0 Chronic obstructive pulmonary disease with (acute) lower respiratory infection; C34.91 Malignant neoplasm of unspecified part of right bronchus or lung; E22.2 Syndrome of inappropriate secretion of antidiuretic hormone; D72.810 Lymphocytopenia; Z20.828 Contact with and (suspected) exposure to other viral communicable diseases; R79.1 Abnormal coagulation profile; F17.200 Nicotine dependence, unspecified, uncomplicated; F12.90 Cannabis use, unspecified, uncomplicated; Z82.49 Family history of ischemic heart disease and other diseases of the circulatory system; Z79.890 Hormone replacement therapy; Z79.1 Long term (current) use of non-steroidal anti-inflammatories (NSAID); Z88.8 Allergy status to other drugs, medicaments and biological substances; Z98.890 Other specified postprocedural states
CPT/HCPCS: 36415; 71045; 80048; 80053; 81001; 82728; 83605; 83615; 83735; 84145; 85025; 85379; 85610; 85730; 86140; 87040; 87324; 87502; 87635; 93005; 96361; 96365; 96375; 99284

== ENCOUNTER 2020-09-12 13:38 | Inpatient (IN) | payer OTHER ==
[2020-09-12] MEDS ORDERED: ACETAMINOPHEN TAB 500 MG TAB PO STA (14:05)
[2020-09-12] MEDS ORDERED: SODIUM CHLORIDE 0.9% 500 ML 500 ML IV ONE (14:06)
[2020-09-12] MEDS ORDERED: IBUPROFEN 600 MG TAB PO STA (14:06)
[2020-09-12] MEDS ORDERED: SODIUM CHLORIDE 0.9% 1,000 ML IV ONE ×2 (14:06→17:51)
--- NOTE | 2020-09-12 14:10 | ED ---
General Adult HPI - General Chief complaint: Shortness of Breath Stated complaint: cough/fever Time Seen by Provider: 09/12/20 13:50 Source: patient, RN notes reviewed, old records reviewed Mode of arrival: ambulatory Limitations: no limitations - History of Present Illness Initial comments: This is a 64-year-old female presents emergency Department with a past medical history of lung cancer which she states she was diagnosed with 5 years ago and he is currently getting chemo. Patient states he has been having a cough shortness of breath for the last 2 weeks she's been tested for COVID 3 times. Patient states he is coughing and sometimes coughing up some sputum. Patient denies any chest pain or palpitations. Patient denies abdominal pain patient denies nausea vomiting or diarrhea. Patient denies any loss of taste or smell. Patient denies any headache patient denies numbness weakness. Patient denies any lightheadedness or dizziness. - Related Data Home Medications Medication Instructions Recorded Confirmed Levothyroxine Sodium [Synthroid] 25 mcg PO DAILY 09/27/19 09/12/20 Cholecalciferol [Vitamin D3 (25 1,000 unit PO DAILY 09/04/20 09/12/20 Mcg = 1000 Iu)] Cyanocobalamin (Vitamin B-12) 1,000 mcg PO DAILY 09/04/20 09/12/20 [Vitamin B-12] Meloxicam [Mobic] 7.5 mg PO BID 09/04/20 09/12/20 Vitamin E 1,000 unit PO DAILY 09/04/20 09/12/20 Zinc 50 mg PO DAILY 09/04/20 09/12/20 predniSONE [Deltasone] 20 mg PO DAILY 09/04/20 09/12/20 Acetaminophen [Tylenol] 500 mg PO Q4-6H PRN 09/12/20 09/12/20 guaiFENesin-DM 600/30MG [Mucinex 1 tab PO BID PRN 09/12/20 09/12/20 Dm] Previous Rx's Medication Instructions Recorded Amoxic-Pot Clav 875-125Mg 1 tab PO Q12HR 7 Days #14 tab 09/10/20 [Augmentin 875-125] Allergies Allergy/AdvReac Type Severity Reaction Status Date / Time adhesive tape AdvReac Rash/Hives Verified 09/12/20 15:39 Review of Systems ROS Statement: Those systems with pertinent positive or pertinent negative responses have been documented in the HPI. ROS Other: All systems not noted in ROS Statement are negative. Past Medical History Past Medical History: Cancer, COPD Additional Past Medical History / Comment(s): R upper lung cancer. History of Any Multi-Drug Resistant Organisms: None Reported Past Surgical History: No Surgical Hx Reported Additional Past Surgical History / Comment(s): 07/15/16 bronchoscopy with bx. Past Anesthesia/Blood Transfusion Reactions: No Reported Reaction Past Psychological History: No Psychological Hx Reported Smoking Status: Current some day smoker, Former smoker Past Alcohol Use History: None Reported Past Drug Use History: Marijuana - Past Family History Father Family Medical History: Coronary Artery Disease (CAD) Additional Family Medical History / Comment(s): Dad in his late 70's from a complication after a hip fx. Sister(s) Family Medical History: Coronary Artery Disease (CAD) Mother Family Medical History: Coronary Artery Disease (CAD) Additional Family Medical History / Comment(s): Mother at the age of 80 yrs in a MVA. Daughter(s) Family Medical History: No Reported History General Exam - General Exam Comments Initial Comments: GENERAL: Patient is well-developed and well-nourished. Patient is nontoxic and well-hydr ated and is in moderate distress. ENT: Neck is soft and supple. No significant lymphadenopathy is noted. Oropharynx is clear. Moist mucous membranes. Neck has full range of motion without eliciting any pain. EYES: The sclera were anicteric and conjunctiva were pink and moist. Extraocular mov ements were intact and pupils were equal round and reactive to light. Eyelids were unremarkable. PULMONARY: Unlabored respirations. Good breath sounds bilaterally. No audible rales rhonchi or wheezing was noted. CARDIOVASCULAR: Patient's rate is tachycardic at about 120 beats a minute ABDOMEN: Soft and nontender with normal bowel sounds. SKIN: Skin is clear with no lesions or rashes and otherwise unremarkable. NEUROLOGIC: Patient is alert and oriented x3. Cranial nerves II through XII are grossly intact. Motor and sensory are also intact. Normal speech, volume and content. Symmetrical smile. MUSCULOSKELETAL: Normal extremities with adequate strength and full range of motion. No lower extremity swelling or edema. No calf tenderness. LYMPHATICS: No significant lymphadenopathy is noted PSYCHIATRIC: Normal psychiatric evaluation. Limitations: no limitations Course Vital Signs 09/12/20 09/12/20 09/12/20 13:46 14:00 14:15 Temperature 103.1 F H 103.1 F H 103 F H Pulse Rate 133 H 125 H 123 H Respiratory 26 H 18 18 Rate Blood Pressure 112/71 122/91 127/89 O2 Sat by Pulse 94 L 93 L 95 Oximetry 09/12/20 09/12/20 09/12/20 14:30 14:45 15:00 Temperature 102.9 F H 102.7 F H 102 F H Pulse Rate 121 H 115 H 100 Respiratory 18 18 18 Rate Blood Pressure 127/93 130/91 110/93 O2 Sat by Pulse 95 99 97 Oximetry 09/12/20 16:41 Temperature 99.0 F Pulse Rate 93 Respiratory 20 Rate Blood Pressure 105/60 O2 Sat by Pulse 97 Oximetry Medical Decision Making - Medical Decision Making EKG shows sinus tachycardia at 125 bpm IN interval 226 dresses 82 QT interval 310 QTC is 447. Patient's EKG shows no ST segment elevation or depression. CT shows no PE. I spoke with nurse practitioner for Dr. Beck she agreed to admit the patient I admitted the patient wrote admitting orders. - Lab Data Result diagrams: 09/12/20 14:17 09/12/20 14:17 Lab Results 09/12/20 09/12/20 09/12/20 Range/Units 14:17 14:17 14:17 WBC 1.5 L (3.8-10.6) k/uL RBC 4.82 (4.30-5.90) m/uL Hgb 14.8 (13.0-17.5) gm/dL Hct 43.7 (39.0-53.0) % MCV 90.6 (80.0-100.0) fL MCH 30.6 (25.0-35.0) pg MCHC 33.8 (31.0-37.0) g/dL RDW 15.6 H (11.5-15.5) % Plt Count 139 L (150-450) k/uL MPV 8.5 Neutrophils % (Manual) 67 % Lymphocytes % (Manual) 23 % Monocytes % (Manual) 10 % Neutrophils # (Manual) 1.01 L (1.3-7.7) k/uL Lymphocytes # (Manual) 0.35 L (1.0-4.8) k/uL Monocytes # (Manual) 0.15 (0-1.0) k/uL Nucleated RBCs 0 (0-0) /100 WBC Manual Slide Review Performed RBC Morphology Normal PT 10.2 (9.0-12.0) sec INR 1.0 (<1.2) APTT 24.5 (22.0-30.0) sec D-Dimer 4.06 H (<0.60) mg/L FEU Sodium 129 L (137-145) mmol/L Potassium 4.2 (3.5-5.1) mmol/L Chloride 96 L (98-107) mmol/L Carbon Dioxide 23 (22-30) mmol/L Anion Gap 10 mmol/L BUN 16 (9-20) mg/dL Creatinine 0.68 (0.66-1.25) mg/dL Est GFR (CKD-EPI)AfAm >90 (>60 ml/min/1.73 sqM) Est GFR (CKD-EPI)NonAf >90 (>60 ml/min/1.73 sqM) Glucose 110 H (74-99) mg/dL Plasma Lactic Acid Will (0.7-2.0) mmol/L Calcium 9.1 (8.4-10.2) mg/dL Magnesium 1.7 (1.6-2.3) mg/dL Total Bilirubin 0.6 (0.2-1.3) mg/dL AST 50 (17-59) U/L ALT 48 (4-49) U/L Alkaline Phosphatase 67 (38-126) U/L Lactate Dehydrogenase 671 H (313-618) U/L C-Reactive Protein 84.9 H (<10.0) mg/L Total Protein 6.1 L (6.3-8.2) g/dL Albumin 3.7 (3.5-5.0) g/dL Coronavirus (PCR) (Not Detectd) Influenza Type A RNA (Not Detectd) Influenza Type B (PCR) (Not Detectd) 09/12/20 09/12/20 Range/Units 14:17 14:17 WBC (3.8-10.6) k/uL RBC (4.30-5.90) m/uL Hgb (13.0-17.5) gm/dL Hct (39.0-53.0) % MCV (80.0-100.0) fL MCH (25.0-35.0) pg MCHC (31.0-37.0) g/dL RDW (11.5-15.5) % Plt Count (150-450) k/uL MPV Neutrophils % (Manual) % Lymphocytes % (Manual) % Monocytes % (Manual) % Neutrophils # (Manual) (1.3-7.7) k/uL Lymphocytes # (Manual) (1.0-4.8) k/uL Monocytes # (Manual) (0-1.0) k/uL Nucleated RBCs (0-0) /100 WBC Manual Slide Review RBC Morphology PT (9.0-12.0) sec INR (<1.2) APTT (22.0-30.0) sec D-Dimer (<0.60) mg/L FEU Sodium (137-145) mmol/L Potassium (3.5-5.1) mmol/L Chloride (98-107) mmol/L Carbon Dioxide (22-30) mmol/L Anion Gap mmol/L BUN (9-20) mg/dL Creatinine (0.66-1.25) mg/dL Est GFR (CKD-EPI)AfAm (>60 ml/min/1.73 sqM) Est GFR (CKD-EPI)NonAf (>60 ml/min/1.73 sqM) Glucose (74-99) mg/dL Plasma Lactic Acid Will 1.4 (0.7-2.0) mmol/L Calcium (8.4-10.2) mg/dL Magnesium (1.6-2.3) mg/dL Total Bilirubin (0.2-1.3) mg/dL AST (17-59) U/L ALT (4-49) U/L Alkaline Phosphatase (38-126) U/L Lactate Dehydrogenase (313-618) U/L C-Reactive Protein (<10.0) mg/L Total Protein (6.3-8.2) g/dL Albumin (3.5-5.0) g/dL Coronavirus (PCR) Not Detected (Not Detectd) Influenza Type A RNA Not Detected (Not Detectd) Influenza Type B (PCR) Not Detected (Not Detectd) Disposition Clinical Impression: Pneumonia due to COVID-19 virus Disposition: ADMITTED IP TO THIS HOSP Referrals: None,Stated [Primary Care Provider] - 1-2 days Time of Disposition: 17:48
[2020-09-12 14:50] LABS: HCT 43.7 % (39.0-53.0); HGB 14.8 gm/dL (13.0-17.5); MCH 30.6 pg (25.0-35.0); MCHC 33.8 g/dL (31.0-37.0); MCV 90.6 fL (80.0-100.0); Mean Platelet Volume 8.5; Platelet Count 139 k/uL (150-450); RBC 4.82 m/uL (4.30-5.90); RDW 15.6 % (11.5-15.5); WBC 1.5 k/uL (3.8-10.6)
[2020-09-12 14:52] LABS: ALT 48 U/L (4-49); AST 50 U/L (17-59); African American GFR (CKD) >90 (>60 ml/min/1.73 sqM); Albumin 3.7 g/dL (3.5-5.0); Alkaline Phosphatase 67 U/L (38-126); Anion Gap 10 mmol/L; Blood Urea Nitrogen 16 mg/dL (9-20); C Reactive Protein 84.9 mg/L (<10.0); Calcium 9.1 mg/dL (8.4-10.2); Carbon Dioxide 23 mmol/L (22-30); Chloride 96 mmol/L (98-107); Glucose 110 mg/dL (74-99); LDH 671 U/L (313-618); Magnesium 1.7 mg/dL (1.6-2.3); Non-African American GFR(CKD) >90 (>60 ml/min/1.73 sqM); Potassium 4.2 mmol/L (3.5-5.1); Sodium 129 mmol/L (137-145); Total Bilirubin 0.6 mg/dL (0.2-1.3); Total Protein 6.1 g/dL (6.3-8.2)
[2020-09-12 14:56] LABS: Prothrombin Time 10.2 sec (9.0-12.0)
--- NOTE | 2020-09-12 14:56 | XR ---
EXAMINATION TYPE: XR chest 1V portable DATE OF EXAM: 09/12/2020 HISTORY: Shortness of breath. COMPARISON: 09/09/2020 TECHNIQUE: Single view of the chest is submitted. FINDINGS: Demonstrated are scattered senescent parenchymal change. Right perihilar infiltrate and infiltrate within the left mid lung zone persist. The heart is stable. Hilar and mediastinal structures are within normal limits. Degenerative changes are seen of the dorsal spine. IMPRESSION: 1. Right perihilar infiltrate and infiltrate within the left mid lung zone persist.
[2020-09-12 14:57] LABS: Partial Thromboplastin Time 24.5 sec (22.0-30.0)
[2020-09-12 15:03] LABS: Lymphocytes # (M) 0.35 k/uL (1.0-4.8); Monocytes # (M) 0.15 k/uL (0-1.0); Neutrophils # (M) 1.01 k/uL (1.3-7.7); Neutrophils % (M) 67 %; Nucleated Red Blood Cells 0 /100 WBC (0-0); Total Cells Counted 100
[2020-09-12 15:11] LABS: D-Dimer 4.06 mg/L FEU (<0.60)
--- NOTE | 2020-09-12 16:21 | CT ---
EXAMINATION TYPE: CT chest angio for PE DATE OF EXAM: 09/12/2020 COMPARISON: 09/04/2020 HISTORY: SOB, elevated d-dimer. History of lung carcinoma CT DLP: 211.4 mGycm CONTRAST: CT chest with contrast and 3D reconstruction with MIP imaging is performed without and with IV Contra st, patient injected with 100 mL of Isovue 370. Contrast-enhanced CT of the chest was performed through the course of the pulmonary arteries with wendy g and mediastinal window settings submitted. 3D reconstruction with MIP imaging was also performed. PULMONARY ARTERIES: The pulmonary arteries and their major tributaries are patent. I do not see jazz dence for sizable filling defect to suggest pulmonary embolic process. LUNGS: There is extensive right side perihilar masslike infiltration. There is encasement of the righ t bronchus. There is encasement of the right pulmonary artery. There is right paratracheal increased soft tissue density. There is masslike infiltrate extending posteriorly in the right upper lobe and a lso inferiorly into the posterior medial right lower lobe. Mass at the inferior right pulmonary hilum measures 6.5 x 5 cm. MEDIASTINUM: Thoracic aorta is of normal caliber,however, evaluation is limited given timing of the contrast bolus. If there is concern for thoracic aortic pathology consider LINDA. Correlate clinicall y . The heart is not enlarged. No evidence for mediastinal mass. No mediastinal lymph nodes greater than 1cm. HILAR STRUCTURES: No evidence for mass. No hilar lymph nodes greater than 1 cm. UPPER ABDOMEN: No significant abnormality is seen. IMPRESSION: 1. No evidence for Pulmonary embolism at this time. 2. Infiltrative right lower lobe mass is unchanged.
[2020-09-12 17:29] LABS: SARS-CoV-2 RNA Rapid Abbott Not Detected (Not Detectd)
[2020-09-12] MEDS ORDERED: dexAMETHasone 2 MG TAB PO STA (17:54)
[2020-09-12] MEDS ORDERED: ACETAMINOPHEN TAB 325 MG TAB PO PRN (18:14)
[2020-09-12] MEDS ORDERED: guaiFENesin-DM 600/30MG 1 EACH TAB.ER.12H PO PRN (21:30)
[2020-09-13] MEDS: LEVOTHYROXINE 25 MCG TAB PO SCH (05:44)
[2020-09-13 06:25] LABS: Ferritin 4238.7 ng/mL (22.0-322.0)
[2020-09-13] MEDS: MELOXICAM 7.5 MG TAB PO SCH ×2 (08:51→20:27)
[2020-09-13] MEDS: CHOLECALCIFEROL 1,000 UNIT TAB PO SCH (08:51)
[2020-09-13] MEDS: CYANOCOBALAMIN 500 MCG TAB PO SCH (08:51)
[2020-09-13] MEDS ORDERED: AMOXIC-POT CLAV 875-125MG 1 EACH TAB PO SCH (09:00)
[2020-09-13] MEDS ORDERED: VITAMIN E 1000 UNIT PO SCH (09:00)
[2020-09-13] MEDS ORDERED: dexAMETHasone 2 MG TAB PO SCH (09:00)
[2020-09-13] MEDS ORDERED: NON FORMULARY DRUG (Zinc [Zinc] 50 MG Tablet) PO SCH (09:00)
[2020-09-13] MEDS: predniSONE 20 MG TAB PO SCH (10:44)
[2020-09-13] MEDS: ENOXAPARIN 40 MG/0.4 ML SYRINGE SQ SCH (10:44)
[2020-09-13] MEDS: ALBUTEROL HFA INHALER INHALATION SCH ×3 (11:29→20:40)
[2020-09-13] MEDS ORDERED: ALBUTEROL NEBULIZED 2.5 MG/3 ML INHALATION SCH (12:00)
--- NOTE | 2020-09-13 12:36 | P.HPIM ---
History of Present Illness 61-year-old pleasant male was decreased recently discharged from the past after he was treated for fever post chemotherapy. Patient was initially believed to have postobstructive pneumonia and was discharged on Augmentin. Patient was afebrile 24 hours before his discharge but since last night patient started having fevers because of which patient came back to the hospital patient had a CT of the chest showed right lower lobe mass. Patient was started on cefepime by pulmonology.. Patient was Covid negative Review of Systems REVIEW OF SYSTEMS: CONSTITUTIONAL: no malaise, no fatigue. HEENT: No recent visual problems or hearing problems. Denied any sore throat. CARDIOVASCULAR: No chest pain, orthopnea, PND, no palpitations, no syncope. PULMONARY: No shortness of breath, no cough, no hemoptysis. GASTROINTESTINAL: No diarrhea, no nausea, no vomiting, no abdominal pain. NEUROLOGICAL: No headaches, no weakness, no numbness. HEMATOLOGICAL: Denies any bleeding or petechiae. GENITOURINARY: Denies any burning micturition, frequency, or urgency. MUSCULOSKELETAL/RHEUMATOLOGICAL: Denies any joint pain, swelling, or any muscle pain. ENDOCRINE: Denies any polyuria or polydipsia. The rest of the 14-point review of systems is negative. Past Medical History Past Medical History: Cancer, COPD Additional Past Medical History / Comment(s): R upper lung cancer. History of Any Multi-Drug Resistant Organisms: None Reported Past Surgical History: No Surgical Hx Reported Additional Past Surgical History / Comment(s): 07/15/16 bronchoscopy with bx. Past Anesthesia/Blood Transfusion Reactions: No Reported Reaction Past Psychological History: No Psychological Hx Reported Additional Psychological History / Comment(s): Pt lives with his spouse of 27 yrs. He is independent. He is still working. Smoking Status: Former smoker Past Alcohol Use History: None Reported Additional Past Alcohol Use History / Comment(s): Pt started smoking in 1970 and quit with cancer diagnosis-07/11/16. Past Drug Use History: Marijuana Additional Drug Use History / Comment(s): Pt on occasion uses marijuana in pill form. - Past Family History Father Family Medical History: Coronary Artery Disease (CAD) Additional Family Medical History / Comment(s): Dad in his late 70's from a complication after a hip fx. Sister(s) Family Medical History: Coronary Artery Disease (CAD) Mother Family Medical History: Coronary Artery Disease (CAD) Additional Family Medical History / Comment(s): Mother at the age of 80 yrs in a MVA. Daughter(s) Family Medical History: No Reported History Medications and Allergies Home Medications Medication Instructions Recorded Confirmed Type Levothyroxine Sodium [Synthroid] 25 mcg PO DAILY 09/27/19 09/12/20 History Cholecalciferol [Vitamin D3 (25 1,000 unit PO DAILY 09/04/20 09/12/20 History Mcg = 1000 Iu)] Cyanocobalamin (Vitamin B-12) 1,000 mcg PO DAILY 09/04/20 09/12/20 History [Vitamin B-12] Meloxicam [Mobic] 7.5 mg PO BID 09/04/20 09/12/20 History Vitamin E 1,000 unit PO DAILY 09/04/20 09/12/20 History Zinc 50 mg PO DAILY 09/04/20 09/12/20 History predniSONE [Deltasone] 20 mg PO DAILY 09/04/20 09/12/20 History Amoxic-Pot Clav 875-125Mg 1 tab PO Q12HR 7 Days #14 tab 09/10/20 09/12/20 Rx [Augmentin 875-125] Acetaminophen [Tylenol] 500 mg PO Q4-6H PRN 09/12/20 09/12/20 History guaiFENesin-DM 600/30MG [Mucinex 1 tab PO BID PRN 09/12/20 09/12/20 History Dm] Allergies Allergy/AdvReac Type Severity Reaction Status Date / Time adhesive tape AdvReac Rash/Hives Verified 09/12/20 15:39 Physical Exam Vitals: Vital Signs Temp Pulse Pulse Resp BP BP Pulse Ox 09/13/20 08:46 97.8 F 76 16 141/81 96 09/13/20 07:39 95 09/13/20 02:07 96.3 F L 69 16 137/73 95 09/12/20 21:00 97.4 F L 09/12/20 19:00 97.3 F L 101 H 18 106/74 93 L 09/12/20 18:19 97.5 F L 98 18 115/78 94 L 09/12/20 16:41 99.0 F 93 20 105/60 97 09/12/20 15:00 102 F H 100 18 110/93 97 09/12/20 14:45 102.7 F H 115 H 18 130/91 99 09/12/20 14:30 102.9 F H 121 H 18 127/93 95 09/12/20 14:15 103 F H 123 H 18 127/89 95 09/12/20 14:00 103.1 F H 125 H 18 122/91 93 L 09/12/20 13:46 103.1 F H 133 H 26 H 112/71 94 L Intake and Output 09/12/20 09/13/20 09/13/20 22:59 06:59 14:59 Other: Voiding Method Toilet Toilet Toilet # Voids 1 # Bowel Movements 1 Weight 54.431 kg PHYSICAL EXAMINATION: GENERAL: The patient is alert and oriented x3, not in any acute distress. Well developed, well nourished. HEENT: Pupils are round and equally reacting to light. EOMI. No scleral icterus. No conjunctival pallor. Normocephalic, atraumatic. No pharyngeal erythema. No thyromegaly. CARDIOVASCULAR: S1 and S2 present. No murmurs, rubs, or gallops. PULMONARY: Chest is clear to auscultation, no wheezing or crackles. ABDOMEN: Soft, nontender, nondistended, normoactive bowel sounds. No palpable organomegaly. MUSCULOSKELETAL: No joint swelling or deformity. EXTREMITIES: No cyanosis, clubbing, or pedal edema. NEUROLOGICAL: Gross neurological examination did not reveal any focal deficits. SKIN: No rashes. Results CBC & Chem 7: 09/12/20 14:17 09/12/20 14:17 Labs: Abnormal Lab Results - Last 24 Hours (Table) 09/12/20 09/12/20 09/12/20 Range/Units 14:17 14:17 14:17 WBC 1.5 L (3.8-10.6) k/uL RDW 15.6 H (11.5-15.5) % Plt Count 139 L (150-450) k/uL Neutrophils # (Manual) 1.01 L (1.3-7.7) k/uL Lymphocytes # (Manual) 0.35 L (1.0-4.8) k/uL D-Dimer 4.06 H (<0.60) mg/L FEU Sodium 129 L (137-145) mmol/L Chloride 96 L (98-107) mmol/L Glucose 110 H (74-99) mg/dL Ferritin 4238.7 H (22.0-322.0) ng/mL Lactate Dehydrogenase 671 H (313-618) U/L C-Reactive Protein 84.9 H (<10.0) mg/L Total Protein 6.1 L (6.3-8.2) g/dL Procalcitonin (0.02-0.09) ng/mL 09/12/20 Range/Units 14:17 WBC (3.8-10.6) k/uL RDW (11.5-15.5) % Plt Count (150-450) k/uL Neutrophils # (Manual) (1.3-7.7) k/uL Lymphocytes # (Manual) (1.0-4.8) k/uL D-Dimer (<0.60) mg/L FEU Sodium (137-145) mmol/L Chloride (98-107) mmol/L Glucose (74-99) mg/dL Ferritin (22.0-322.0) ng/mL Lactate Dehydrogenase (313-618) U/L C-Reactive Protein (<10.0) mg/L Total Protein (6.3-8.2) g/dL Procalcitonin 0.23 H (0.02-0.09) ng/mL Thrombosis Risk Factor Assmnt - Choose All That Apply Each Factor Represents 1 point: Abnormal pulmonary function (COPD) Each Risk Factor Represents 2 Points: Age 61-74 years Thrombosis Risk Factor Assessment Total Risk Factor Score: 3 Thrombosis Risk Factor Assessment Level: Moderate Risk Assessment and Plan Plan: -Episodes of fever: Etiology still not clear. May be related to the cancer itself. Infectious disease will be consulted. Patient is presently on cefepime which will be continued patient will be monitored, pulmonology was consulted. Patient will be treated for postobstructive pneumonia and although there is no evidence of the CAT scan -Hyponatremia secondary to SIADH: Patient will be fluid restricted to 1500 mL Have from lung cancer status post chemotherapy -COPD without any acute exacerbation -
--- NOTE | 2020-09-13 14:21 | P.CNPUL ---
History of Present Illness Consult date: 09/13/20 Reason for consult: COPD, pulmonary embolism, lung mass History of present illness: 64-year-old male patient with known history of small cell lung cancer with currently undergoing systemic chemotherapy and prophylactic brain radiation therapy.. The patient was warned diagnosed having small cell lung cancer 2015 and the patient was treated with a combination of chemoradiation therapy. Most recently, his condition and progress. Lung cancer progressed and the patient had a CAT scan that was done on 08/02/2020 that showed mass in the right lower lobe consistent with disease as the patient had extensive hypermetabolic activity in the involved area extending into the right hilum in addition to an uptake in the lymph node adjacent to the esophagus. No cervical or subclavicular lymphadenopathy. No adrenal mass. . The patient was in the hospital approximately week ago with fevers and neutropenia. Cultures were all negative. CAT scan of the chest was done. The patient was stabilized and the patient was discharged home on Augmentin. Nevertheless, the patient continued to have episodic fever and he had to come back to the hospital. On his blood work, the patient continues to be neutropenic and a white cell count is at 1.5 with an absolute neutrophil count of 1000. D-dimer is at 4.06. 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 Renal function is within normal limits. . The pro-calcitonin level is at 0.23. The coronavirus covered 19 testing came back negative. A repeat CAT scan of the chest was done and the findings were again consistent with a right-sided perihilar masslike infiltration, most likely consistent with malignancy/small cell lung cancer although the possibility of an underlying pneumonia cannot be completely excluded. There is encasement of the right mainstem bronchus and encasement of the right main pulmonary artery. Is also right paratracheal soft tissue density. The masslike infiltrate is extending posteriorly in the right upper lobe and inferiorly into the posterior segment of the right lower lobe. The mass is approximately 6.5 x 5 cm in size and its inferior to the right hilum. The T-max was on 103.1. Currently is afebrile. Currently his hemodynamics is stable. No nausea. No vomiting. No diarrhea. No hemoptysis. No pleurisy. No dysuria fixed urgency. No altered mentation. Review of Systems Constitutional: Reports chills, Reports fatigue, Reports fever, Reports weakness Eyes: denies as per HPI, denies blurred vision, denies bulging eye, denies decreased vision, denies diplopia, denies discharge, denies dry eye, denies irritation, denies itching, denies pain, denies photophobia, denies loss of peripheral vision, denies loss of vision, denies tunnel vision/blind spots Ears: deny: decreased hearing, ear discharge, earache, tinnitus Ears, nose, mouth and throat: Reports as per HPI Breasts: absent: as per HPI, gynecomastia Cardiovascular: Reports as per HPI, Reports decreased exercise tolerance, Reports dyspnea on exertion Respiratory: Reports cough, Reports dyspnea Gastrointestinal: Reports as per HPI Genitourinary: Reports as per HPI Musculoskeletal: Reports as per HPI Musculoskeletal: absent: ankle pain, ankle stiffness, ankle swelling, as per HPI, elbow pain, elbow stiffness, elbow swelling, foot pain, foot stiffness, foot swelling, hand pain, hand stiffness, hand swelling, hip pain, hip stiffness, hip swelling, knee pain, knee stiffness, knee swelling, shoulder pain, shoulder stiffness, shoulder swelling, wrist pain, wrist stiffness, wrist swelling Integumentary: Reports as per HPI Neurological: Reports as per HPI, Reports weakness Psychiatric: Reports as per HPI Endocrine: Reports as per HPI Hematologic/Lymphatic: Reports as per HPI Allergic/Immunologic: Reports as per HPI Past Medical History Past Medical History: Cancer, COPD Additional Past Medical History / Comment(s): Small cell lung cancer diagnosed in 2016, treated with chemoradiation therapy and prophylactic brain radiation therapy. Currently the patient is recurrent disease. COPD. Long-term steroid use and the patient has been taking prednisone 20 mg on outpatient basis. History of Any Multi-Drug Resistant Organisms: None Reported Past Surgical History: No Surgical Hx Reported Additional Past Surgical History / Comment(s): 07/15/16 bronchoscopy with bx. Past Anesthesia/Blood Transfusion Reactions: No Reported Reaction Past Psychological History: No Psychological Hx Reported Additional Psychological History / Comment(s): Pt lives with his spouse of 27 yrs. He is independent. He is still working. Smoking Status: Former smoker Past Alcohol Use History: None Reported Additional Past Alcohol Use History / Comment(s): Pt started smoking in 1970 and quit with cancer diagnosis-07/11/16. Past Drug Use History: Marijuana Additional Drug Use History / Comment(s): Pt on occasion uses marijuana in pill form. - Past Family History Father Family Medical History: Coronary Artery Disease (CAD) Additional Family Medical History / Comment(s): Dad in his late 70's from a complication after a hip fx. Sister(s) Family Medical History: Coronary Artery Disease (CAD) Mother Family Medical History: Coronary Artery Disease (CAD) Additional Family Medical History / Comment(s): Mother at the age of 80 yrs in a MVA. Daughter(s) Family Medical History: No Reported History Medications and Allergies Home Medications Medication Instructions Recorded Confirmed Type Levothyroxine Sodium [Synthroid] 25 mcg PO DAILY 09/27/19 09/12/20 History Cholecalciferol [Vitamin D3 (25 1,000 unit PO DAILY 09/04/20 09/12/20 History Mcg = 1000 Iu)] Cyanocobalamin (Vitamin B-12) 1,000 mcg PO DAILY 09/04/20 09/12/20 History [Vitamin B-12] Meloxicam [Mobic] 7.5 mg PO BID 09/04/20 09/12/20 History Vitamin E 1,000 unit PO DAILY 09/04/20 09/12/20 History Zinc 50 mg PO DAILY 09/04/20 09/12/20 History predniSONE [Deltasone] 20 mg PO DAILY 09/04/20 09/12/20 History Amoxic-Pot Clav 875-125Mg 1 tab PO Q12HR 7 Days #14 tab 09/10/20 09/12/20 Rx [Augmentin 875-125] Acetaminophen [Tylenol] 500 mg PO Q4-6H PRN 09/12/20 09/12/20 History guaiFENesin-DM 600/30MG [Mucinex 1 tab PO BID PRN 09/12/20 09/12/20 History Dm] Allergies Allergy/AdvReac Type Severity Reaction Status Date / Time adhesive tape AdvReac Rash/Hives Verified 09/12/20 15:39 Physical Exam Vitals: Vital Signs Temp Pulse Pulse Resp BP BP Pulse Ox 09/13/20 08:46 97.8 F 76 16 141/81 96 09/13/20 07:39 95 09/13/20 02:07 96.3 F L 69 16 137/73 95 09/12/20 21:00 97.4 F L 09/12/20 19:00 97.3 F L 101 H 18 106/74 93 L 09/12/20 18:19 97.5 F L 98 18 115/78 94 L 09/12/20 16:41 99.0 F 93 20 105/60 97 09/12/20 15:00 102 F H 100 18 110/93 97 09/12/20 14:45 102.7 F H 115 H 18 130/91 99 09/12/20 14:30 102.9 F H 121 H 18 127/93 95 09/12/20 14:15 103 F H 123 H 18 127/89 95 09/12/20 14:00 103.1 F H 125 H 18 122/91 93 L 09/12/20 13:46 103.1 F H 133 H 26 H 112/71 94 L Intake and Output 09/12/20 09/13/20 09/13/20 22:59 06:59 14:59 Other: Voiding Method Toilet Toilet Toilet # Voids 1 # Bowel Movements 1 Weight 54.431 kg Gen. appearance, comfortable Head exam was generally normal. There was no scleral icterus or corneal arcus. Mucous membranes were moist. Neck was supple and without jugular venous distension, thyromegaly, or carotid bruits. Carotids were easily palpable bilaterally. There was no adenopathy. Lungs are diminished in the patient's scattered expiratory wheezes throughout the lung mohan bilaterally Cardiac exam revealed the PMI to be normally situated and sized. The rhythm was regular and no extrasystoles were noted during several minutes of auscultation. The first and second heart sounds were normal and physiologic splitting of the second heart sound was noted. There were no murmurs, rubs, clicks, or gallops. Abdominal exam revealed normal bowel sounds. The abdomen was soft, non-tender, and without masses, organomegaly, or appreciable enlargement of the abdominal aorta. Examination of the extremities revealed easily palpable radial, femoral and pedal pulses. There was no cyanosis, clubbing or edema. Examination of the skin revealed no evidence of significant rashes, suspicious appearing nevi or other concerning lesions. Neurologically, the patient is awake and alert and the patient does not have any focal neurological deficit. Cranial nerves are essentially intact. Results - Laboratory Findings CBC and BMP: 09/12/20 14:17 09/12/20 14:17 PT/INR, D-dimer PT 10.2 sec (9.0-12.0) 09/12/20 14:17 INR 1.0 (<1.2) 09/12/20 14:17 D-Dimer 4.06 mg/L FEU (<0.60) H 09/12/20 14:17 Abnormal lab findings: Abnormal Labs 09/12/20 09/12/20 09/12/20 14:17 14:17 14:17 WBC 1.5 L RDW 15.6 H Plt Count 139 L Neutrophils # (Manual) 1.01 L Lymphocytes # (Manual) 0.35 L D-Dimer 4.06 H Sodium 129 L Chloride 96 L Glucose 110 H Ferritin 4238.7 H Lactate Dehydrogenase 671 H C-Reactive Protein 84.9 H Total Protein 6.1 L Procalcitonin 09/12/20 14:17 WBC RDW Plt Count Neutrophils # (Manual) Lymphocytes # (Manual) D-Dimer Sodium Chloride Glucose Ferritin Lactate Dehydrogenase C-Reactive Protein Total Protein Procalcitonin 0.23 H - Diagnostic Findings CT scan - chest: image reviewed Assessment and Plan Plan: 1 neutropenic fever on that investigation. The patient has a white cell count of 1.5. Absolute neutrophil count is above 1000. The patient has high-grade temperature and the patient will need broad-spectrum antibiotics and the fever workup. Consider pneumonia 2 small cell lung cancer, recurrent, currently on systemic chemotherapy. 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
[2020-09-13] MEDS: CEFEPIME 2 GM in SODIUM CHLORIDE 0.9% 100 ML IVPB SCH (20:27)
[2020-09-14] MEDS: LEVOTHYROXINE 25 MCG TAB PO SCH (05:57)
--- NOTE | 2020-09-14 06:03 | CONS ---
CONSULTATION DATE OF SERVICE: 09/13/2020 REASON FOR CONSULTATION: Pneumonia. HISTORY OF PRESENT ILLNESS: The patient is a 64-year-old male with a past medical history significant for small cell lung cancer status post chemotherapy and prophylactic brain radiation. The patient was recently admitted to this facility and the patient was treated for pneumonia with concern for possible postobstructive pattern. He was on Zosyn, did improve, subsequently was transitioned to oral Augmentin. The patient mentioned he did well for a few days, however, started having a fever again yesterday and that brought him back to the hospital. The patient complaining of fever with rigors and chills. The patient denies having any chest pain or any worsening shortness of breath. He did have a cough with occasional sputum production. No hemoptysis. No nausea, no vomiting. No abdominal pain. No diarrhea. No choking on the food. On arrival to the ER, the patient did have fever of 103 degrees Fahrenheit. The patient did have a heart rate of 101 and was mildly hypoxic. The patient did have leukopenia with white count 1.5 and lymphopenia. D-dimer was 4.06. He did have elevated CRP. LDH, as well as procalcitonin and lee PCR came back negative. The patient did have a CT angiogram of the chest which did show negative evidence of any pulmonary involvement. Infiltrative right lower lobe mass is unchanged. Patient was started on cefepime. Infectious Disease was consulted for further management of antibiotic therapy. REVIEW OF SYSTEMS: Positive points have been mentioned in HPI. Rest of systems are negative. PAST MEDICAL HISTORY: Significant for small-cell lung cancer, COPD. PAST SURGICAL HISTORY: Bronchoscopy with biopsy. SOCIAL HISTORY: Current everyday smoker. No drinking. Does admit to marijuana use. FAMILY HISTORY: Father with history of coronary disease. ALLERGIES: ADHESIVE TAPE. MEDICATIONS: The patient is currently on Tylenol, Ventolin, cefepime 2 g q.12. He is on Lovenox, Mucinex, Synthroid, Mobic, and prednisone. PHYSICAL EXAMINATION: Blood pressure 139/83 with a pulse of 71, temperature 98.3, T-max is 103. He is 95% on room air. GENERAL DESCRIPTION: He is a middle-aged male lying in bed in no distress. No tachypnea or accessory muscles of respiration use. HEENT: Examination shows no pallor or scleral icterus. Oral mucous membranes are dry. No pharyngeal erythema or thrush. NECK: Trachea central, no thyromegaly. LUNGS: Unlabored breathing, decreased breath sounds at the bases. No wheeze or crackle. HEART S1, S2. Regular rate and rhythm. ABDOMEN: Soft, no tenderness. EXTREMITIES: No edema of the feet. LABS: Hemoglobin is 14.8, white count 1.5, BUN of 16, creatinine 0.68. Elevated inflammatory markers. Lee and influenza PCR negative. Blood cultures so far negative. DIAGNOSTIC IMPRESSION: Patient admitted to the hospital with sepsis. The patient did have fever and tachycardia, and leukopenia. Concern is likely for pneumonia with question of possible Gram-negative. This patient is failing outpatient oral Augmentin therapy. Lee PCR is negative PLAN: 1. We will obtain sputum for Gram stain and culture and sensitivity. 2. Continue with cefepime 2 g q.12h. 3. We will follow on his clinical condition and cultures and further adjust medication if needed. Thank you for this consultation. Will follow this patient along with you. MMODL / IJN: [id number] /
[2020-09-14] MEDS: ALBUTEROL HFA INHALER INHALATION SCH ×4 (07:53→19:43)
[2020-09-14] MEDS: predniSONE 20 MG TAB PO SCH (09:33)
[2020-09-14] MEDS: ENOXAPARIN 40 MG/0.4 ML SYRINGE SQ SCH (09:33)
[2020-09-14] MEDS: CHOLECALCIFEROL 1,000 UNIT TAB PO SCH (09:33)
[2020-09-14] MEDS: CYANOCOBALAMIN 500 MCG TAB PO SCH (09:33)
[2020-09-14] MEDS: MELOXICAM 7.5 MG TAB PO SCH ×2 (09:33→20:45)
[2020-09-14] MEDS: CEFEPIME 2 GM in SODIUM CHLORIDE 0.9% 100 ML IVPB SCH ×2 (09:34→21:04)
[2020-09-14 10:50] LABS: African American GFR (CKD) >90 (>60 ml/min/1.73 sqM); Anion Gap 6 mmol/L; Blood Urea Nitrogen 12 mg/dL (9-20); Calcium 8.5 mg/dL (8.4-10.2); Carbon Dioxide 27 mmol/L (22-30); Chloride 97 mmol/L (98-107); Glucose 94 mg/dL (74-99); Non-African American GFR(CKD) >90 (>60 ml/min/1.73 sqM); Potassium 3.7 mmol/L (3.5-5.1); Sodium 130 mmol/L (137-145)
--- NOTE | 2020-09-14 13:49 | P.PN ---
Subjective 61-year-old pleasant male was recently discharged from the past after he was treated for fever post chemotherapy. Patient was initially believed to have postobstructive pneumonia and was discharged on Augmentin. Patient was afebrile 24 hours before his discharge but since last night patient started having fevers because of which patient came back to the hospital patient had a CT of the chest showed right lower lobe mass. Patient was started on cefepime by pulmonology.. Patient was Covid negative 09/14/2020 Patient is doing much better today patient doesn't have any fevers plan is to continue with cefepime and await sputum cultures which are presently not available. Constitutional: Denied any fatigue denied any fever. Cardio vascular: denied any chest pain, palpitations Gastrointestinal denied any nausea vomiting Pulmonary: Denied any shortness of breath cough Neurologic denied any new focal deficits All inpatient medications were reviewed and appropriate changes in these medications as dictated in the interval history and assessment and plan. Objective - Vital Signs Vital signs: Vital Signs Temp 97.5 F L 09/14/20 09:27 Pulse 78 09/14/20 09:27 Resp 16 09/14/20 09:27 BP 126/79 09/14/20 09:27 Pulse Ox 95 09/14/20 09:27 Intake & Output 09/13/20 09/14/20 09/14/20 18:59 06:59 18:59 Weight 54.431 kg Other: Voiding Method Toilet Toilet Toilet # Voids 1 1 1 - Exam PHYSICAL EXAMINATION: GENERAL: The patient is alert and oriented x3, not in any acute distress. Well developed, well nourished. HEENT: Pupils are round and equally reacting to light. EOMI. No scleral icterus. No conjunctival pallor. Normocephalic, atraumatic. No pharyngeal erythema. No thyromegaly. CARDIOVASCULAR: S1 and S2 present. No murmurs, rubs, or gallops. PULMONARY: Chest is clear to auscultation, no wheezing or crackles. ABDOMEN: Soft, nontender, nondistended, normoactive bowel sounds. No palpable organomegaly. MUSCULOSKELETAL: No joint swelling or deformity. EXTREMITIES: No cyanosis, clubbing, or pedal edema. NEUROLOGICAL: Gross neurological examination did not reveal any focal deficits. SKIN: No rashes. - Labs CBC & Chem 7: 09/12/20 14:17 09/14/20 10:11 Labs: Abnormal Lab Results - Last 24 Hours (Table) 09/14/20 Range/Units 10:11 Sodium 130 L (137-145) mmol/L Chloride 97 L (98-107) mmol/L Creatinine 0.51 L (0.66-1.25) mg/dL Microbiology - Last 24 Hours (Table) 09/12/20 14:17 Blood Culture - Preliminary Blood No Growth after 24 hours Assessment and Plan Plan: -Episodes of fever: This is being treated for postobstructive pneumonia with cefepime. Patient fever resolved at this time awaiting sputum cultures. -Hyponatremia secondary to SIADH: Patient will be fluid restricted to 1500 mL, serum sodium did improve to 1:30 -lung cancer status post chemotherapy patient has small cell lung cancer -COPD without any acute exacerbation -DVT prophylaxis with Lovenox
--- NOTE | 2020-09-14 13:56 | P.PN ---
Subjective Progress Note Date: 09/14/20 64-year-old male patient with known history of small cell lung cancer with currently undergoing systemic chemotherapy and prophylactic brain radiation therapy.. The patient was warned diagnosed having small cell lung cancer 2015 and the patient was treated with a combination of chemoradiation therapy. Most recently, his condition and progress. Lung cancer progressed and the patient had a CAT scan that was done on 08/02/2020 that showed mass in the right lower lobe consistent with disease as the patient had extensive hypermetabolic activity in the involved area extending into the right hilum in addition to an uptake in the lymph node adjacent to the esophagus. No cervical or subclavicular lymphadenopathy. No adrenal mass. . The patient was in the hospital approximately week ago with fevers and neutropenia. Cultures were all negative. CAT scan of the chest was done. The patient was stabilized and the patient was discharged home on Augmentin. Nevertheless, the patient continued to have episodic fever and he had to come back to the hospital. On his blood work, the patient continues to be neutropenic and a white cell count is at 1.5 with an absolute neutrophil count of 1000. D-dimer is at 4.06. 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 Renal function is within normal limits. . The pro-calcitonin level is at 0.23. The coronavirus covered 19 testing came back negative. A repeat CAT scan of the chest was done and the findings were again consistent with a right-sided perihilar masslike infiltration, most likely consistent with malignancy/small cell lung cancer although the possibility of an underlying pneumonia cannot be completely excluded. There is encasement of the right mainstem bronchus and encasement of the right main pulmonary artery. Is also right paratracheal soft tissue density. The masslike infiltrate is extending posteriorly in the right upper lobe and inferiorly into the posterior segment of the right lower lobe. The mass is approximately 6.5 x 5 cm in size and its inferior to the right hilum. The T-max was on 103.1. Currently is afebrile. Currently his hemodynamics is stable. No nausea. No vomiting. No diarrhea. No hemoptysis. No pleurisy. No dysuria fixed urgency. No altered mentation. 09/14/2020 on seeing the patient for a follow-up. Doing well. No specific comp laints. Less congested. No fever, the patient is covered with IV cefepime. Follow-up CBC is still pending for now. The sodium level is up to 1:30. Creatinine stable at 0.5. No nausea vomiting or diarrhea. He is afebrile. chills or night sweats. Pulse ox was around 95%. The patient remains on IV cefepime as a broad-spectrum antibiotic coverage. He is also on a usual dose of prednisone which is 20 mg by mouth daily basis. Objective - Vital Signs Vital signs: Vital Signs Temp 97.5 F L 09/14/20 09:27 Pulse 78 09/14/20 09:27 Resp 16 09/14/20 09:27 BP 126/79 09/14/20 09:27 Pulse Ox 95 09/14/20 09:27 Intake & Output 09/13/20 09/14/20 09/14/20 18:59 06:59 18:59 Weight 54.431 kg Other: Voiding Method Toilet Toilet Toilet # Voids 1 1 1 - Exam Gen. appearance, comfortable Head exam was generally normal. There was no scleral icterus or corneal arcus. Mucous membranes were moist. Neck was supple and without jugular venous distension, thyromegaly, or carotid bruits. Carotids were easily palpable bilaterally. There was no adenopathy. Lungs are diminished in the patient's scattered expiratory wheezes throughout the lung mohan bilaterally Cardiac exam revealed the PMI to be normally situated and sized. The rhythm was regular and no extrasystoles were noted during several minutes of auscultation. The first and second heart sounds were normal and physiologic splitting of the second heart sound was noted. There were no murmurs, rubs, clicks, or gallops. Abdominal exam revealed normal bowel sounds. The abdomen was soft, non-tender, and without masses, organomegaly, or appreciable enlargement of the abdominal aorta. Examination of the extremities revealed easily palpable radial, femoral and pedal pulses. There was no cyanosis, clubbing or edema. Examination of the skin revealed no evidence of significant rashes, suspicious appearing nevi or other concerning lesions. Neurologically, the patient is awake and alert and the patient does not have any focal neurological deficit. Cranial nerves are essentially intact. - Labs CBC & Chem 7: 09/12/20 14:17 09/14/20 10:11 Labs: Abnormal Lab Results - Last 24 Hours (Table) 09/14/20 Range/Units 10:11 Sodium 130 L (137-145) mmol/L Chloride 97 L (98-107) mmol/L Creatinine 0.51 L (0.66-1.25) mg/dL Microbiology - Last 24 Hours (Table) 09/12/20 14:17 Blood Culture - Preliminary Blood No Growth after 24 hours Assessment and Plan Plan: 1 neutropenic fever on that investigation. The patient has a white cell count of 1.5. Absolute neutrophil count is above 1000. The patient has high-grade temperature and the patient will need broad-spectrum antibiotics and the fever workup. Consider pneumonia. Mother the patient is currently afebrile. The patient is covered with IV cefepime. Cultures are still pending for now. Follow-up CBC is pending in regards to his neutrophil count from today. 2 small cell lung cancer, recurrent, currently on systemic chemotherapy. 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
--- NOTE | 2020-09-14 23:00 | PN ---
PROGRESS NOTE DATE OF SERVICE: 09/14/2020 REASON FOR FOLLOWUP: Pneumonia. INTERVAL HISTORY: The patient is currently afebrile. The patient is breathing more comfortably. The patient denies having any chest pain. He did have a cough, decreased in intensity. He did have some sputum. Sputum culture requested twice, none collected. No nausea, no vomiting. No abdominal pain, no diarrhea. PHYSICAL EXAMINATION: Blood pressure 130/80 with a pulse of 70, temperature 98.1. He is 96% on room air. General description is a middle-aged male lying in bed in no distress. RESPIRATORY SYSTEM: Unlabored breathing, decreased breath sounds at the bases. No wheeze. HEART: S1, S2. Regular rate and rhythm. ABDOMEN: Soft, no tenderness. LABS: Blood culture has been negative so far. His BUN of 12, creatinine 0.51. DIAGNOSTIC IMPRESSION AND PLAN: Patient admitted to the hospital with fever, concerning for pneumonia possible gram- negative. Clinically responded to cefepime. Unfortunately no sputum has been obtained so we can narrow down his antibiotics. Sputum will be requested again. Continue cefepime. Repeat chest x-ray tomorrow. Continue supportive care. MMODL / IJN: [id number] /
[2020-09-15] MEDS: LEVOTHYROXINE 25 MCG TAB PO SCH (05:45)
[2020-09-15] MEDS: ALBUTEROL HFA INHALER INHALATION SCH (07:30)
[2020-09-15 07:58] VITALS: BP 136/71; PULSE 84; RESP 16; TEMP 97.5
[2020-09-15] MEDS: CYANOCOBALAMIN 500 MCG TAB PO SCH (09:31)
[2020-09-15] MEDS: predniSONE 20 MG TAB PO SCH (09:32)
[2020-09-15] MEDS: CHOLECALCIFEROL 1,000 UNIT TAB PO SCH (09:32)
[2020-09-15] MEDS: MELOXICAM 7.5 MG TAB PO SCH (09:32)
[2020-09-15] MEDS: ENOXAPARIN 40 MG/0.4 ML SYRINGE SQ SCH (09:33)
[2020-09-15 09:59] LABS: African American GFR (CKD) >90 (>60 ml/min/1.73 sqM); Anion Gap 4 mmol/L; Blood Urea Nitrogen 12 mg/dL (9-20); Calcium 8.4 mg/dL (8.4-10.2); Carbon Dioxide 28 mmol/L (22-30); Chloride 95 mmol/L (98-107); Glucose 113 mg/dL (74-99); Non-African American GFR(CKD) >90 (>60 ml/min/1.73 sqM); Potassium 4.1 mmol/L (3.5-5.1); Sodium 127 mmol/L (137-145)
[2020-09-15] MEDS ORDERED: CEFEPIME 2 GM in SODIUM CHLORIDE 0.9% 100 ML IVPB SCH (12:00)
--- NOTE | 2020-09-15 13:45 | P.PN ---
Subjective Progress Note Date: 09/15/20 Principal diagnosis: Acute neutropenic fever and small cell lung cancer. 64-year-old male patient with known history of small cell lung cancer with currently undergoing systemic chemotherapy and prophylactic brain radiation therapy.. The patient was warned diagnosed having small cell lung cancer 2015 and the patient was treated with a combination of chemoradiation therapy. Most recently, his condition and progress. Lung cancer progressed and the patient had a CAT scan that was done on 08/02/2020 that showed mass in the right lower lobe consistent with disease as the patient had extensive hypermetabolic activity in the involved area extending into the right hilum in addition to an uptake in the lymph node adjacent to the esophagus. No cervical or subclavicular lymphadenopathy. No adrenal mass. . The patient was in the hospital approximately week ago with fevers and neutropenia. Cultures were all negative. CAT scan of the chest was done. The patient was stabilized and the patient was discharged home on Augmentin. Nevertheless, the patient continued to have episodic fever and he had to come back to the hospital. On his blood work, the patient continues to be neutropenic and a white cell count is at 1.5 with an absolute neutrophil count of 1000. D-dimer is at 4.06. 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 Renal function is within normal limits. . The pro-calcitonin level is at 0.23. The coronavirus covered 19 testing came back negative. A repeat CAT scan of the chest was done and the findings were again consistent with a right-sided perihilar masslike infiltration, most likely consistent with malignancy/small cell lung cancer although the possibility of an underlying pneumonia cannot be completely excluded. There is encasement of the right mainstem bronchus and encasement of the right main pulmonary artery. Is also right paratracheal soft tissue density. The masslike infiltrate is extending posteriorly in the right upper lobe and inferiorly into the posterior segment of the right lower lobe. The mass is approximately 6.5 x 5 cm in size and its inferior to the right hilum. The T-max was on 103.1. Currently is afebrile. Currently his hemodynamics is stable. No nausea. No vomiting. No diarrhea. No hemoptysis. No pleurisy. No dysuria fixed urgency. No altered mentation. 09/14/2020 on seeing the patient for a follow-up. Doing well. No specific complaints. Less congested. No fever, the patient is covered with IV cefepime. Follow-up CBC is still pending for now. The sodium level is up to 1:30. Creatinine stable at 0.5. No nausea vomiting or diarrhea. He is afebrile. chills or night sweats. Pulse ox was around 95%. The patient remains on IV cefepime as a broad-spectrum antibiotic coverage. He is also on a usual dose of prednisone which is 20 mg by mouth daily basis. Patient was reevaluated today on 09/15/20, remains in the observation unit, patient is doing great. Patient remains on antibiotics in the form of cefepime. He is on room air, patient is covid 19 negative. Remains on his usual dose of prednisone 20 mg daily. Patient is afebrile, denies any shortness of breath wheezing, denies any chest pain, denies any nausea vomiting or abdominal pain. Sodium is a bit low at 127 otherwise electrolytes are normal. D-dimer is 4.06. O2 saturation is 95% on room air. Temperature 97.5. Blood pressure is stable. Objective - Vital Signs Vital signs: Vital Signs Temp 97.5 F L 09/15/20 07:57 Pulse 84 09/15/20 07:57 Resp 16 09/15/20 07:57 BP 136/71 09/15/20 07:57 Pulse Ox 95 09/15/20 07:57 Intake & Output 09/14/20 09/15/20 09/15/20 18:59 06:59 18:59 Intake Total 0 250 Balance 0 250 Intake: Oral 0 250 Other: Voiding Method Toilet Toilet Toilet # Voids 1 2 - Exam Physical Exam: Revealed a 64-year-old. White male, in no distress. Head: Atraumatic, normocephalic. HEENT:[Neck is supple.] [No neck masses.] [No thyromegaly.] [No JVD.] Chest: [Diminished breath sounds at the bases no rhonchi and no wheezes. Cardiac Exam: [Normal S1 and S2, no S3 gallop, no murmur.] Abdomen: [Soft, nontender, no megaly, no rebound, no guarding, normal bowel sounds.] Extremities: [No clubbing, no edema, no cyanosis.] Neurological Exam: [No focal neurologic deficit.] Alert oriented 3. Psychiatric: Normal mood, affect and normal mental status examination. Skin: No rashes. Musculoskeletal: No deformities normal range of motion. - Labs CBC & Chem 7: 09/12/20 14:17 09/15/20 08:57 Labs: Abnormal Lab Results - Last 24 Hours (Table) 09/15/20 Range/Units 08:57 Sodium 127 L (137-145) mmol/L Chloride 95 L (98-107) mmol/L Creatinine 0.51 L (0.66-1.25) mg/dL Glucose 113 H (74-99) mg/dL Microbiology - Last 24 Hours (Table) 09/12/20 14:17 Blood Culture - Preliminary Blood No Growth after 48 hours Assessment and Plan Assessment: Impression: Neutropenic fever Small cell lung cancer, on systemic chemotherapy. Diagnosed in 2016, treated with chemoradiation and prophylactic brain irradiation. Underlying COPD, relatively inactive. Mediastinal mass consistent with small cell lung cancer. Euvolemic hyponatremia consistent with SIADH. Chronic cough secondary to above. Recommendation: Continue antibiotics, blood cultures remain negative in the last 72 hours. Consider switching the patient to oral antibiotics, as per ID on the case. Consider discharge planning and follow-up with oncology/Dr. Coffey. Continue prednisone at 20 mg daily. Could be seen on outpatient basis by Dr. Pavon if necessary. We'll clear the patient for discharge if cleared by other consultants Time with Patient: Less than 30
--- NOTE | 2020-09-15 14:36 | PN ---
PROGRESS NOTE DATE OF SERVICE: 09/15/2020 REASON FOR FOLLOWUP: Pneumonia. INTERVAL HISTORY: Patient is currently afebrile, patient is breathing comfortably. Patient denies having any chest pain or shortness of breath, some cough. No sputum, no nausea, no vomiting, no abdominal pain, no diarrhea. PHYSICAL EXAMINATION: Blood pressure 136/71 with a pulse of 84, temperature 97.5. He is 95% on room air. General description is a middle-aged male, up in the bed, in no distress. RESPIRATORY SYSTEM: Unlabored breathing. Decreased breath sounds at the base, no wheeze. HEART S1, S2. Regular rate and rhythm. ABDOMEN: Soft, no tenderness. LABS: BUN of 23, creatinine 0.51. Blood culture negative. Sputum unfortunately collected last this morning. DIAGNOSTIC IMPRESSION AND PLAN: Patient admitted to the hospital with pneumonia, possible gram-negative. Failing outpatient oral Augmentin therapy, cefepime. He responded to cefepime and is insisting on going home and we may consider Lanoxin 100 daily for 7-10 days and close outpatient followup. Discussed with the admitting physician who is working on discharge. MMODL / IJN: [id number] /
--- NOTE | 2020-09-15 15:21 | P.DS ---
Providers Date of admission: 09/13/20 09:57 Attending physician: Mi Beck Consults: 09/12/20 17:51 Consult Physician Urgent Consulting Provider: Vicenta Pavon Consult Reason/Comments: COVID pneumonia Do you want consulting provider notified?: Yes 09/13/20 11:57 Consult Physician Routine Consulting Provider: Huma Mckenzie Consult Reason/Comments: Fever source not clear Do you want consulting provider notified?: Yes Primary care physician: Stated None Hospital Course: 61-year-old pleasant male was recently discharged from the past after he was treated for fever post chemotherapy. Patient was initially believed to have postobstructive pneumonia and was discharged on Augmentin. Patient was afebrile 24 hours before his discharge but since last night patient started having fevers because of which patient came back to the hospital patient had a CT of the chest showed right lower lobe mass. Patient was started on cefepime by pulmonology.. Patient was Covid negative 09/14/2020 Patient is doing much better today patient doesn't have any fevers plan is to continue with cefepime and await sputum cultures which are presently not available. 09/15/2020 Patient remains afebrile, unfortunately sputum cultures are still not available, as these were not obtained yet. Patient will be discharged on moxifloxacin for 7 days as recommended by infectious disease. PHYSICAL EXAMINATION: GENERAL: The patient is alert and oriented x3, not in any acute distress. Well developed, well nourished. HEENT: Pupils are round and equally reacting to light. EOMI. No scleral icterus. No conjunctival pallor. Normocephalic, atraumatic. No pharyngeal erythema. No thyromegaly. CARDIOVASCULAR: S1 and S2 present. No murmurs, rubs, or gallops. PULMONARY: Chest is clear to auscultation, no wheezing or crackles. ABDOMEN: Soft, nontender, nondistended, normoactive bowel sounds. No palpable organomegaly. MUSCULOSKELETAL: No joint swelling or deformity. EXTREMITIES: No cyanosis, clubbing, or pedal edema. NEUROLOGICAL: Gross neurological examination did not reveal any focal deficits. SKIN: No rashes. Assessment and Plan Plan: -fever: Possibility postobstructive pneumonia with cefepime. Can be related to the tumor itself -Hyponatremia secondary to SIADH: Patient will be discharged on fluid restricted diet -lung cancer status post chemotherapy patient has small cell lung cancer -COPD without any acute exacerbation Plan - Discharge Summary New Discharge Prescriptions: New Moxifloxacin HCl [Avelox] 400 mg PO DAILY #7 tablet Discontinued Amoxic-Pot Clav 875-125Mg [Augmentin 875-125] 1 tab PO Q12HR 7 Days #14 tab No Action Levothyroxine Sodium [Synthroid] 25 mcg PO DAILY Cholecalciferol [Vitamin D3 (25 Mcg = 1000 Iu)] 1,000 unit PO DAILY predniSONE [Deltasone] 20 mg PO DAILY Meloxicam [Mobic] 7.5 mg PO BID Zinc 50 mg PO DAILY Vitamin E 1,000 unit PO DAILY Cyanocobalamin (Vitamin B-12) [Vitamin B-12] 1,000 mcg PO DAILY Acetaminophen [Tylenol] 500 mg PO Q4-6H PRN PRN Reason: Pain Or Fever > 100.5 guaiFENesin-DM 600/30MG [Mucinex Dm] 1 tab PO BID PRN PRN Reason: COUGH & CONGESTION Discharge Medication List Levothyroxine Sodium [Synthroid] 25 mcg PO DAILY 09/27/19 [History] Cholecalciferol [Vitamin D3 (25 Mcg = 1000 Iu)] 1,000 unit PO DAILY 09/04/20 [History] Cyanocobalamin (Vitamin B-12) [Vitamin B-12] 1,000 mcg PO DAILY 09/04/20 [History] Meloxicam [Mobic] 7.5 mg PO BID 09/04/20 [History] Vitamin E 1,000 unit PO DAILY 09/04/20 [History] Zinc 50 mg PO DAILY 09/04/20 [History] predniSONE [Deltasone] 20 mg PO DAILY 09/04/20 [History] Acetaminophen [Tylenol] 500 mg PO Q4-6H PRN 09/12/20 [History] guaiFENesin-DM 600/30MG [Mucinex Dm] 1 tab PO BID PRN 09/12/20 [History] Moxifloxacin HCl [Avelox] 400 mg PO DAILY #7 tablet 09/15/20 [Rx] Follow up Appointment(s)/Referral(s): Suzan Montemayor DO [REFERRING] - 3 Days (Please call the office to schedule an appointment.) Patient Instructions/Handouts: Pneumonia (DC) Discharge Disposition: HOME SELF-CARE
== END 2020-09-15 13:42 | disposition home or self-care (01) | DRG 194 ==
LOC: EC 13:38 → 1SOBS 17:51 → OBSVTOIN 09-13 09:57
PROVIDERS: ADMIT Hospitalist; ATTEND Hospitalist
DX: J18.9 Pneumonia, unspecified organism (principal); C34.31 Malignant neoplasm of lower lobe, right bronchus or lung; E22.2 Syndrome of inappropriate secretion of antidiuretic hormone; J44.0 Chronic obstructive pulmonary disease with (acute) lower respiratory infection; Z20.828 Contact with and (suspected) exposure to other viral communicable diseases; D70.9 Neutropenia, unspecified; R50.81 Fever presenting with conditions classified elsewhere; R00.0 Tachycardia, unspecified; R79.82 Elevated C-reactive protein (CRP); Z79.890 Hormone replacement therapy; Z79.1 Long term (current) use of non-steroidal anti-inflammatories (NSAID); Z79.52 Long term (current) use of systemic steroids; Z92.3 Personal history of irradiation; Z91.048 Other nonmedicinal substance allergy status; Z87.891 Personal history of nicotine dependence; Z82.49 Family history of ischemic heart disease and other diseases of the circulatory system
CPT/HCPCS: 36415; 71045; 71275; 80048; 80053; 82728; 83605; 83615; 83735; 84145; 85025; 85379; 85610; 85730; 86140; 87040; 87070; 87205; 87502; 87635; 93005; 94640; 94760; 96361; 96365; 99285

== ENCOUNTER → 2020-10-01 | Outpatient (CLI) | payer OTHER ==
[2020-10-01 11:09] LABS: African American GFR (CKD) >90 (>60 ml/min/1.73 sqM); Blood Urea Nitrogen 13 mg/dL (9-20); Non-African American GFR(CKD) >90 (>60 ml/min/1.73 sqM)
--- NOTE | 2020-10-01 20:41 | CT ---
EXAMINATION TYPE: CT chest w con DATE OF EXAM: 10/01/2020 COMPARISON: 07/18/2020 HISTORY: Lung cancer, observation for mets CT DLP: 147.1 mGycm, Automated exposure control for dose reduction was used. CONTRAST: Performed injected with 100 ml mL of Isovue 300. TECHNIQUE: Axial images were obtained at 5 mm thick sections. Reconstructed images are reviewed on [employer] computer in the coronal plane. FINDINGS: Portion of the thyroid visualized is normal. Medial right apical consolidation with cavitation is stable. There is some infiltrate which has devel oped in the periphery of the lingula. This is nonspecific increase in lingular infiltrate is present. This may has some direct wall invasion, series 3 image 24. Large masslike solid lesion is developed at the right medial lung base. This appears to be in direct extension to the right hilar and mediasti nal mass is encasing the right lower lobe pulmonary veins. No enlarged mediastinal or hilar adenopathy is evident. The ascending aorta diameter at the level o f the main pulmonary artery is 3.7 cm. The main pulmonary artery diameter at the bifurcation is 2.[address] sections are obtained through the upper abdomen. Abdomen is essentially unremarkable. IMPRESSIONS: 1. Developing right lower lobe mass encasing the pulmonary vein vasculature. 2. Stable right upper lobe mass. 3. Developing infiltrate may have some chest wall involvement within the lingula. 4. Consider reevaluation with PET CT
== END | disposition home or self-care (01) ==
LOC: RADCTMAIN 10:14
PROVIDERS: ATTEND Internal Medicine Hematology & Oncology
DX: R91.8 Other nonspecific abnormal finding of lung field (principal); C34.91 Malignant neoplasm of unspecified part of right bronchus or lung
CPT/HCPCS: 82565; 84520; 71260; 36415; Q9967

== ENCOUNTER → 2020-10-15 | Outpatient (CLI) | payer OTHER | END | disposition home or self-care (01) | LOC: LABWHC1 11:42 | PROVIDERS: ATTEND Surgery | DX: Z20.828 Contact with and (suspected) exposure to other viral communicable diseases (principal) | CPT/HCPCS: U0003; C9803 ==

== ENCOUNTER 2020-10-20 11:35 | Day surgery (SDC) | payer OTHER ==
[~2020-10-20 11:35] MED LIST: DEXAMETHASONE SOD PHOSPHATE 4 MG/ML 1 ML VIAL IV ONE; HYDROmorphone 0.5 MG/0.5 ML SYRINGE IVP PRN; LACTATED RINGERS 1,000 ML IV SCH; MIDAZOLAM 2 MG/2 ML VIAL IV PRN; ONDANSETRON 4 MG/2 ML VIAL IVP ONE; Pre Op ABX Message 1 EACH MISC MISCELLANE ONE; SCOPOLAMINE 1.5MG/72HR PATCH TRANSDERM ONE
[2020-10-20 12:16] VITALS: TEMP 97.8
[2020-10-20 12:21] LABS: Glucose,Whole Blood 91 mg/dL (75-99)
[2020-10-20] MEDS ORDERED: LIDOCAINE 1% (10MG/ML) FOR IV START INTRADERMA ONE (12:29)
[2020-10-20] MEDS ORDERED: fentaNYL (PF) 50 MCG/ML 2 ML AMP ONE (13:08)
[2020-10-20] MEDS ORDERED: PHENYLEPHRINE 10 MG/ML VIAL ONE (13:08)
[2020-10-20] MEDS ORDERED: MIDAZOLAM 2 MG/2 ML VIAL ONE (13:08)
[2020-10-20] MEDS ORDERED: LIDOCAINE 1% INJ 10MG/ML (20 ML MDV) ONE (13:08)
[2020-10-20] MEDS ORDERED: PROPOFOL 10 MG/ML 20 ML VIAL IV ONE (13:08)
--- NOTE | 2020-10-20 13:08 | P.GSHP ---
History of Present Illness H&P Date: 10/20/20 Chief Complaint: Need for IV access, small cell cancer The patient's a 64-year-old man who's receiving chemotherapy for cancer. Request was made for port placement. He's never had any ports in the past. No prior central lines. No injuries to the neck or right chest - Review of Systems All systems: negative Past Medical History Past Medical History: Cancer, COPD, Thyroid Disorder Additional Past Medical History / Comment(s): Small cell lung cancer diagnosed in 2016, treated with chemoradiation therapy and prophylactic brain radiation therapy. Long-term steroid use, this procedure was rescheduled from yesterday as patient had "low grade temp" & nausea History of Any Multi-Drug Resistant Organisms: None Reported Past Surgical History: Orthopedic Surgery Additional Past Surgical History / Comment(s): 07/15/16 bronchoscopy with bx., left hand sx Past Anesthesia/Blood Transfusion Reactions: No Reported Reaction Smoking Status: Current every day smoker - Past Family History Father Family Medical History: Coronary Artery Disease (CAD) Additional Family Medical History / Comment(s): Dad in his late 70's from a complication after a hip fx. Sister(s) Family Medical History: Coronary Artery Disease (CAD) Mother Family Medical History: Coronary Artery Disease (CAD) Additional Family Medical History / Comment(s): Mother at the age of 80 yrs in a MVA. Daughter(s) Family Medical History: No Reported History Medications and Allergies Home Medications Medication Instructions Recorded Confirmed Type Levothyroxine Sodium [Synthroid] 25 mcg PO DAILY 09/27/19 10/20/20 History Cholecalciferol [Vitamin D3 (25 1,000 unit PO DAILY 09/04/20 10/20/20 History Mcg = 1000 Iu)] Cyanocobalamin (Vitamin B-12) 1,000 mcg PO DAILY 09/04/20 10/20/20 History [Vitamin B-12] Meloxicam [Mobic] 7.5 mg PO BID 09/04/20 10/20/20 History Zinc 50 mg PO DAILY 09/04/20 10/20/20 History predniSONE [Deltasone] 20 mg PO DAILY 09/04/20 10/20/20 History Acetaminophen [Tylenol] 500 mg PO Q4-6H PRN 09/12/20 10/20/20 History Ascorbic Acid [Vitamin C] 1,000 mg PO DAILY 10/13/20 10/20/20 History Guaifenesin/Pseudoephedrne HCl 1 each PO DAILY 10/13/20 10/20/20 History [Mucinex D ER 1,200-120 mg Tab] Tiotropium Br/Olodaterol HCl 2 puff INHALATION DAILY 10/13/20 10/20/20 History [Stiolto Respimat Inhal [place]] Allergies Allergy/AdvReac Type Severity Reaction Status Date / Time adhesive tape AdvReac Rash/Hives Verified 10/20/20 12:06 Surgical - Exam Osteopathic Statement: *. No significant issues noted on an osteopathic structural exam other than those noted in the History and Physical/Consult. Vital Signs Temp Pulse Resp BP Pulse Ox 97.8 F 92 16 106/66 97 10/20/20 12:14 10/20/20 12:14 10/20/20 12:14 10/20/20 12:14 10/20/20 12:14 - General well developed, no distress, chronically ill (Thin) - Neck trachea midline - Respiratory normal expansion, normal respiratory effort - Cardiovascular Rhythm: regular Assessment and Plan (1) Small cell lung cancer Current Visit: No Status: Chronic Code(s): C34.90 - MALIGNANT NEOPLASM OF UNSP PART OF UNSP BRONCHUS OR LUNG SNOMED Code(s): 059959482 Plan: Port placement. The procedure, risks, complications both short-term and long- term were discussed with him. Questions were encouraged and answered. We'll do this for him today. He is not sure if his chemo is to tomorrow. I will check with oncology and if it is tomorrow I'll leave the port accessed
[2020-10-20] MEDS ORDERED: SODIUM CHLORIDE 0.9% 50 ML with ceFAZolin 2,000 MG IV ONE ×2 (13:35)
[2020-10-20] MEDS ORDERED: HEPARIN SODIUM 1,000 UN/ML (10ML VL) IRRIGATION ONE (13:44)
[2020-10-20] MEDS ORDERED: BUPIVACAINE (PF) 0.25% 30 ML VIAL SQ ONE ×2 (13:45)
[2020-10-20] MEDS ORDERED: LIDOCAINE 1%-EPI 1:100,000 20 ML VIAL SQ ONE ×2 (13:45)
[2020-10-20] MEDS ORDERED: IOPAMIDOL-370 50ML BTL MISCELLANE ONE ×2 (13:46)
--- NOTE | 2020-10-20 14:10 | P.OP ---
Date of Procedure: 10/20/20 Preoperative Diagnosis: Small cell cancer, need for IV access Postoperative Diagnosis: Small cell cancer, need for IV access Procedure(s) Performed: Port placement Anesthesia: ANEL Surgeon: Selina Lindsey Estimated Blood Loss (ml): 5 Pathology: none sent Condition: stable Disposition: PACU Indications for Procedure: Patient needs a port for continued chemotherapy Operative Findings: The patient's taken the operative suite where he is prepped and draped in the usual sterile manner under general anesthetic. Local anesthetic is instilled in the skin and subcutaneous tissue on the right chest wall, up above the clavicle, and then 2 finger breaths above the clavicle and posterior to the sternocleidomastoid muscle. The internal jugular vein is cannulated until there is a good back flash of dark red blood. A guidewire is then passed easily and the position is verified fluoroscopically. A skin sal is made near the guidewire and a skin incision is made in the anterior chest wall. The catheters threaded between the 2 openings. A vessel dilator with breakaway sheath was then placed over the guidewire and the position was verified fluoroscopically. The guidewire and vessel dilator were removed and the catheter was threaded through the breakaway sheath into the superior vena cava and position was verified fluoroscopically. A port pocket was then developed on the anterior chest wall. The catheter was trimmed to size and attached to the previously flushed port. The port was secured to the fascia of anterior chest wall using 0 Vicryl. The skin incisions were closed with 4-0 Vicryl in a subcuticular manner. The port was accessed percutaneously and showed a good back flash of dark red blood and flushed easily with heparinized saline solution. Steri- Strips and dressings were applied. He tolerated the procedure without difficulty and was taken to recovery room in satisfactory condition. According to or personnel, ARE correct. Plan - Discharge Summary Discharge Rx Participant: No New Discharge Prescriptions: No Action Levothyroxine Sodium [Synthroid] 25 mcg PO DAILY Cholecalciferol [Vitamin D3 (25 Mcg = 1000 Iu)] 1,000 unit PO DAILY predniSONE [Deltasone] 20 mg PO DAILY Meloxicam [Mobic] 7.5 mg PO BID Zinc 50 mg PO DAILY Cyanocobalamin (Vitamin B-12) [Vitamin B-12] 1,000 mcg PO DAILY Acetaminophen [Tylenol] 500 mg PO Q4-6H PRN PRN Reason: Pain Or Fever > 100.5 Guaifenesin/Pseudoephedrne HCl [Mucinex D ER 1,200-120 mg Tab] 1 each PO DAILY Tiotropium Br/Olodaterol HCl [Stiolto Respimat Inhal [place]] 2 puff INHALATION DAILY Ascorbic Acid [Vitamin C] 1,000 mg PO DAILY Discharge Medication List Levothyroxine Sodium [Synthroid] 25 mcg PO DAILY 09/27/19 [History] Cholecalciferol [Vitamin D3 (25 Mcg = 1000 Iu)] 1,000 unit PO DAILY 09/04/20 [History] Cyanocobalamin (Vitamin B-12) [Vitamin B-12] 1,000 mcg PO DAILY 09/04/20 [History] Meloxicam [Mobic] 7.5 mg PO BID 09/04/20 [History] Zinc 50 mg PO DAILY 09/04/20 [History] predniSONE [Deltasone] 20 mg PO DAILY 09/04/20 [History] Acetaminophen [Tylenol] 500 mg PO Q4-6H PRN 09/12/20 [History] Ascorbic Acid [Vitamin C] 1,000 mg PO DAILY 10/13/20 [History] Guaifenesin/Pseudoephedrne HCl [Mucinex D ER 1,200-120 mg Tab] 1 each PO DAILY 10/13/20 [History] Tiotropium Br/Olodaterol HCl [Stiolto Respimat Inhal [place]] 2 puff INHALATION DAILY 10/13/20 [History] Follow up Appointment(s)/Referral(s): Dyllan Coffey MD [REFERRING] - (Call the office and notify them the port has been placed. They will schedule you for your next chemotherapy) Activity/Diet/Wound Care/Special Instructions: Leave the current dressings on until Tuesday. Then may be a be removed and you may shower. Tenderness in the incisions for 24-48 hours. Tylenol or Motrin as needed for pain. Remove the small tapes from the skin in 1 week. Expect a small amount of bruising. Call if you develop fevers, chills, concerns of wound infection.
--- NOTE | 2020-10-20 14:45 | XR ---
EXAMINATION TYPE: XR chest 1V confirm line [facility] DATE OF EXAM: 10/20/2020 COMPARISON: Prior chest x-ray 09/12/2020 HISTORY: Line placement TECHNIQUE: Single frontal view of the chest is obtained. FINDINGS: There is been interval placement of a port in the right pectoral region, right internal ju gular approach, tip at the level of the cavoatrial junction. No evident pneumothorax or pleural effus ion. Extensive pleural-parenchymal changes are again noted within the lungs. Aorta is dense. Heart si ze is normal. Patient is rotated. IMPRESSION: No evident complication status post Port-A-Cath placement.
--- NOTE | 2020-10-20 14:52 | FL ---
Fluoroscopy HISTORY: Catheter placement 3 seconds fluoroscopy time supplied to the referring clinician. 2 intraoperative C-arm images docume nt the procedure. See dictated report from surgery.
[2020-10-20 15:09] VITALS: BP 106/68; PULSE 84; RESP 16
== END 2020-10-20 15:25 ==
LOC: OR 11:35
PROVIDERS: ATTEND Surgery
DX: Z45.2 Encounter for adjustment and management of vascular access device (principal); C34.91 Malignant neoplasm of unspecified part of right bronchus or lung; E03.9 Hypothyroidism, unspecified; J44.9 Chronic obstructive pulmonary disease, unspecified; D61.810 Antineoplastic chemotherapy induced pancytopenia; F17.200 Nicotine dependence, unspecified, uncomplicated; E07.9 Disorder of thyroid, unspecified; Z91.048 Other nonmedicinal substance allergy status; Z79.890 Hormone replacement therapy; Z79.51 Long term (current) use of inhaled steroids; Z79.899 Other long term (current) drug therapy; Z79.1 Long term (current) use of non-steroidal anti-inflammatories (NSAID); Z98.890 Other specified postprocedural states; Z82.49 Family history of ischemic heart disease and other diseases of the circulatory system
CPT/HCPCS: 77001; 36561; C1788; C1769; J2250; J1100; J2370; J2405; J0690; J2001; J3010; J1644; J2704; Q9967

== ENCOUNTER 2020-12-09 10:54 | Inpatient (IN) | payer OTHER ==
[2020-12-09] MEDS ORDERED: SODIUM CHLORIDE 0.9% 1,000 ML IV STA ×2 (11:07)
[2020-12-09] MEDS ORDERED: ONDANSETRON 4 MG/2 ML VIAL IVP PRN (11:16)
[2020-12-09] MEDS ORDERED: ACETAMINOPHEN TAB 325 MG TAB PO PRN (11:16)
[2020-12-09] MEDS ORDERED: NALOXONE 0.4 MG/ML 1 ML VIAL IV PRN (11:16)
--- NOTE | 2020-12-09 11:16 | ED ---
General Adult HPI - General Chief complaint: Shortness of Breath Stated complaint: Post Chemo/SOB/cough/not eating Time Seen by Provider: 12/09/20 11:01 Source: patient, family, RN notes reviewed Mode of arrival: wheelchair Limitations: physical limitation - History of Present Illness Initial comments: This is a 64-year-old male presents emergency Department chief complaint of increased weakness, dehydration, cough congestion. Patient just left his o ncology office Dr. Coffey presents emergency from. Patient has had chemotherapy weekly states that he was due this week but states that he has not felt well enough. Patient states that he can barely drink any time, he's had increased nausea, increased productive cough no reported fever states that he's had chills. Patient denies any current chest pain. He states that he lost more weight. Patient has bilateral lung cancer. Patient denies any headache or dizziness. - Related Data Home Medications Medication Instructions Recorded Confirmed Levothyroxine Sodium [Synthroid] 25 mcg PO DAILY 09/27/19 12/09/20 Meloxicam [Mobic] 7.5 mg PO BID 09/04/20 12/09/20 Zinc 50 mg PO DAILY 09/04/20 12/09/20 predniSONE [Deltasone] 20 mg PO DAILY 09/04/20 12/09/20 Ascorbic Acid [Vitamin C] 1,000 mg PO DAILY 10/13/20 12/09/20 Guaifenesin/Pseudoephedrne HCl 1 tab PO DAILY 10/13/20 12/09/20 [Mucinex D ER 1,200-120 mg Tab] Tiotropium Br/Olodaterol HCl 2 puff INHALATION DAILY 10/13/20 12/09/20 [Stiolto Respimat Inhal Peever] Albuterol Sulfate [Proair Hfa] 2 puff INHALATION RT-QID PRN 12/09/20 12/09/20 Amoxic-Pot Clav 875-125Mg 1 tab PO BID 12/09/20 12/09/20 [Augmentin 875-125] Cholecalciferol (Vitamin D3) 125 mcg PO DAILY 12/09/20 12/09/20 [Vitamin D3 (5000 Iu)] HYDROcodone/APAP 5-325MG [[place] 1 tab PO DAILY PRN 12/09/20 12/09/20 5-325] Lidocaine-Prilocaine Cream [Emla 1 applic TOPICAL DAILY PRN 12/09/20 12/09/20 Cream 2.5%/2.5%] Vitamin B Complex 1 cap PO DAILY 12/09/20 12/09/20 Allergies Allergy/AdvReac Type Severity Reaction Status Date / Time adhesive tape AdvReac Rash/Hives Verified 12/09/20 11:00 Review of Systems ROS Statement: Those systems with pertinent positive or pertinent negative responses have been documented in the HPI. ROS Other: All systems not noted in ROS Statement are negative. Past Medical History Past Medical History: Cancer, COPD, Thyroid Disorder Additional Past Medical History / Comment(s): Small cell lung cancer diagnosed in 2016, treated with chemoradiation therapy and prophylactic brain radiation therapy. Long-term steroid use, this procedure was rescheduled from yesterday as patient had "low grade temp" & nausea. Last chemo was 12/02/20. History of Any Multi-Drug Resistant Organisms: None Reported Past Surgical History: Orthopedic Surgery Additional Past Surgical History / Comment(s): 07/15/16 bronchoscopy with bx., left hand sx Past Anesthesia/Blood Transfusion Reactions: No Reported Reaction Past Psychological History: Anxiety, Depression Smoking Status: Former smoker Past Alcohol Use History: None Reported - Past Family History Father Family Medical History: Coronary Artery Disease (CAD) Additional Family Medical History / Comment(s): Dad in his late 70's from a complication after a hip fx. Sister(s) Family Medical History: Coronary Artery Disease (CAD) Mother Family Medical History: Coronary Artery Disease (CAD) Additional Family Medical History / Comment(s): Mother at the age of 80 yrs in a MVA. Daughter(s) Family Medical History: No Reported History General Exam Limitations: physical limitation General appearance: alert, in no apparent distress Head exam: Present: atraumatic, normocephalic, normal inspection Eye exam: Present: normal appearance, PERRL, EOMI. Absent: scleral icterus, conjunctival injection, periorbital swelling ENT exam: Present: mucous membranes dry. Absent: normal exam, normal oropharynx, mucous membranes moist Neck exam: Present: normal inspection, full ROM. Absent: tenderness, meningismus, lymphadenopathy Respiratory exam: Present: wheezes, decreased breath sounds. Absent: normal lung sounds bilaterally, respiratory distress, rales, rhonchi, stridor Cardiovascular Exam: Present: normal rhythm, tachycardia, normal heart sounds. Absent: systolic murmur, diastolic murmur, rubs, gallop, clicks GI/Abdominal exam: Present: soft, normal bowel sounds. Absent: distended, tenderness, guarding, rebound, rigid Course Vital Signs 12/09/20 12/09/20 10:55 12:21 Temperature 97.9 F 97.9 F Pulse Rate 116 H 116 H Respiratory 20 20 Rate Blood Pressure 95/61 127/92 O2 Sat by Pulse 91 L 94 L Oximetry EKG Findings - EKG Comments: EKG Findings:: EK:10 sinus tachycardia rate of 111. pr 1:30 QRS 80 QT/QTC 324/440 Medical Decision Making - Medical Decision Making Case discussed with Dr. Beck patient will be admitted for hydration, further evaluation and treatment patient will have a CT of the chest time consult Dr. Coffey. Patient was given a dose and advised concern for underlying pneumonia. - Lab Data Result diagrams: 12/09/20 11:57 12/09/20 11:57 Lab Results 12/09/20 12/09/20 12/09/20 Range/Units 11:57 11:57 11:57 WBC 11.8 H (3.8-10.6) k/uL RBC 4.01 L (4.30-5.90) m/uL Hgb 11.7 L (13.0-17.5) gm/dL Hct 36.2 L (39.0-53.0) % MCV 90.3 (80.0-100.0) fL MCH 29.1 (25.0-35.0) pg MCHC 32.2 (31.0-37.0) g/dL RDW 18.2 H (11.5-15.5) % Plt Count 409 (150-450) k/uL MPV 8.3 Neutrophils % Not Reportable Neutrophils % (Manual) 74 % Band Neuts % (Manual) 11 % Lymphocytes % Not Reportable Lymphocytes % (Manual) 6 % Monocytes % Not Reportable Monocytes % (Manual) 7 % Eosinophils % Not Reportable Eosinophils % (Manual) 1 % Basophils % Not Reportable Basophils % (Manual) 1 % Metamyelocytes % 1 % Myelocytes % 2 % Neutrophils # Not Reportable Neutrophils # (Manual) 10.00 H (1.3-7.7) k/uL Lymphocytes # Not Reportable Lymphocytes # (Manual) 0.71 L (1.0-4.8) k/uL Monocytes # Not Reportable Monocytes # (Manual) 0.83 (0-1.0) k/uL Eosinophils # Not Reportable Eosinophils # (Manual) 0.12 (0-0.7) k/uL Basophils # Not Reportable Basophils # (Manual) 0.12 (0-0.2) k/uL Metamyelocytes # (Man) 0.12 H (0) k/uL Myelocytes # (Manual) 0.24 H (0) k/uL Nucleated RBCs 0 (0-0) /100 WBC Manual Slide Review Performed Toxic Granulation Present Toxic Vacuolation Present Poikilocytosis (manual Present Anisocytosis Slight Sodium 133 L (137-145) mmol/L Potassium 4.8 (3.5-5.1) mmol/L Chloride 98 (98-107) mmol/L Carbon Dioxide 22 (22-30) mmol/L Anion Gap 13 mmol/L BUN 18 (9-20) mg/dL Creatinine 0.51 L (0.66-1.25) mg/dL Est GFR (CKD-EPI)AfAm >90 (>60 ml/min/1.73 sqM) Est GFR (CKD-EPI)NonAf >90 (>60 ml/min/1.73 sqM) Glucose 136 H (74-99) mg/dL Calcium 9.5 (8.4-10.2) mg/dL Magnesium 1.9 (1.6-2.3) mg/dL Total Bilirubin 0.7 (0.2-1.3) mg/dL AST 33 (17-59) U/L ALT 32 (4-49) U/L Alkaline Phosphatase 109 (38-126) U/L Total Protein 6.1 L (6.3-8.2) g/dL Albumin 3.3 L (3.5-5.0) g/dL Urine Color Yellow Urine Appearance Cloudy (Clear) Urine pH 6.0 (5.0-8.0) Ur Specific [place] 1.029 (1.001-1.035) Urine Protein 1+ H (Negative) Urine Glucose (UA) Negative (Negative) Urine Ketones 2+ H (Negative) Urine Blood Negative (Negative) Urine Nitrite Negative (Negative) Urine Bilirubin Negative (Negative) Urine Urobilinogen 2.0 (<2.0) mg/dL Ur Leukocyte Esterase Negative (Negative) Urine RBC 5 (0-5) /hpf Urine WBC 5 (0-5) /hpf Urine Mucus Many H (None) /hpf Coronavirus (PCR) (Not Detectd) 12/09/20 Range/Units 11:57 WBC (3.8-10.6) k/uL RBC (4.30-5.90) m/uL Hgb (13.0-17.5) gm/dL Hct (39.0-53.0) % MCV (80.0-100.0) fL MCH (25.0-35.0) pg MCHC (31.0-37.0) g/dL RDW (11.5-15.5) % Plt Count (150-450) k/uL MPV Neutrophils % Neutrophils % (Manual) % Band Neuts % (Manual) % Lymphocytes % Lymphocytes % (Manual) % Monocytes % Monocytes % (Manual) % Eosinophils % Eosinophils % (Manual) % Basophils % Basophils % (Manual) % Metamyelocytes % % Myelocytes % % Neutrophils # Neutrophils # (Manual) (1.3-7.7) k/uL Lymphocytes # Lymphocytes # (Manual) (1.0-4.8) k/uL Monocytes # Monocytes # (Manual) (0-1.0) k/uL Eosinophils # Eosinophils # (Manual) (0-0.7) k/uL Basophils # Basophils # (Manual) (0-0.2) k/uL Metamyelocytes # (Man) (0) k/uL Myelocytes # (Manual) (0) k/uL Nucleated RBCs (0-0) /100 WBC Manual Slide Review Toxic Granulation Toxic Vacuolation Poikilocytosis (manual Anisocytosis Sodium (137-145) mmol/L Potassium (3.5-5.1) mmol/L Chloride (98-107) mmol/L Carbon Dioxide (22-30) mmol/L Anion Gap mmol/L BUN (9-20) mg/dL Creatinine (0.66-1.25) mg/dL Est GFR (CKD-EPI)AfAm (>60 ml/min/1.73 sqM) Est GFR (CKD-EPI)NonAf (>60 ml/min/1.73 sqM) Glucose (74-99) mg/dL Calcium (8.4-10.2) mg/dL Magnesium (1.6-2.3) mg/dL Total Bilirubin (0.2-1.3) mg/dL AST (17-59) U/L ALT (4-49) U/L Alkaline Phosphatase (38-126) U/L Total Protein (6.3-8.2) g/dL Albumin (3.5-5.0) g/dL Urine Color Urine Appearance (Clear) Urine pH (5.0-8.0) Ur Specific [place] (1.001-1.035) Urine Protein (Negative) Urine Glucose (UA) (Negative) Urine Ketones (Negative) Urine Blood (Negative) Urine Nitrite (Negative) Urine Bilirubin (Negative) Urine Urobilinogen (<2.0) mg/dL Ur Leukocyte Esterase (Negative) Urine RBC (0-5) /hpf Urine WBC (0-5) /hpf Urine Mucus (None) /hpf Coronavirus (PCR) Not Detected (Not Detectd) Disposition Clinical Impression: Dehydration, Small cell lung cancer, Dyspnea, Weakness Disposition: ADMITTED IP TO THIS [facility] Condition: Fair Referrals: Suzan Montemayor DO [Primary Care Provider] - 1-2 days
[2020-12-09] MEDS ORDERED: SODIUM CHLORIDE 0.9% 1,000 ML IV SCH (11:30)
[2020-12-09] MEDS ORDERED: CEFEPIME 2 GM in SODIUM CHLORIDE 0.9% 100 ML IVPB STA (11:53)
--- NOTE | 2020-12-09 11:59 | XR ---
EXAMINATION TYPE: XR chest 2V DATE OF EXAM: 12/09/2020 COMPARISON: 10/20/2020 TECHNIQUE: PA and lateral views submitted. HISTORY: Shortness of breath FINDINGS: There is been interval placement of a port in the right pectoral region, right internal jugular appro ach, tip at the level of the cavoatrial junction. No evident pneumothorax or pleural effusion. Extens tuyet pleural- parenchymal changes are again noted within the lungs. Aorta is dense. Heart size is norm al. Patient is rotated. Hyperinflation suggests COPD. Chronic deformity left clavicle. Diffuse osteop enia and arthropathy of the shoulders. IMPRESSION: 1. Chronic pleural-parenchymal changes involving the right lung stable.
[2020-12-09 12:11] LABS: Anisocytosis Slight; HCT 36.2 % (39.0-53.0); HGB 11.7 gm/dL (13.0-17.5); MCH 29.1 pg (25.0-35.0); MCHC 32.2 g/dL (31.0-37.0); MCV 90.3 fL (80.0-100.0); Mean Platelet Volume 8.3; Platelet Count 409 k/uL (150-450); RBC 4.01 m/uL (4.30-5.90); RDW 18.2 % (11.5-15.5); WBC 11.8 k/uL (3.8-10.6)
[2020-12-09 12:14] LABS: Appearance,Urine Cloudy (Clear); Bilirubin,Urine Negative (Negative); Blood,Urine Negative (Negative); Color,Urine Yellow; Glucose,Urine (UA) Negative (Negative); Ketones,Urine 2+ (Negative); Leukocyte Esterase,Urine Negative (Negative); Mucus,Urine Many /hpf; Nitrite,Urine Negative (Negative); Protein,Urine 1+ (Negative); RBC,Urine 5 /hpf (0-5); Specific Gravity,Urine 1.029 (1.001-1.035); WBC,Urine 5 /hpf (0-5)
[2020-12-09 12:21] LABS: ALT 32 U/L (4-49); AST 33 U/L (17-59); African American GFR (CKD) >90 (>60 ml/min/1.73 sqM); Albumin 3.3 g/dL (3.5-5.0); Alkaline Phosphatase 109 U/L (38-126); Anion Gap 13 mmol/L; Blood Urea Nitrogen 18 mg/dL (9-20); Calcium 9.5 mg/dL (8.4-10.2); Carbon Dioxide 22 mmol/L (22-30); Chloride 98 mmol/L (98-107); Glucose 136 mg/dL (74-99); Magnesium 1.9 mg/dL (1.6-2.3); Non-African American GFR(CKD) >90 (>60 ml/min/1.73 sqM); Potassium 4.8 mmol/L (3.5-5.1); Sodium 133 mmol/L (137-145); Total Bilirubin 0.7 mg/dL (0.2-1.3); Total Protein 6.1 g/dL (6.3-8.2)
[2020-12-09] MEDS ORDERED: LIDOCAINE-PRILOCAINE 2.5-2.5% CREAM 5 GM TUBE TOPICAL STA (12:23)
[2020-12-09 12:42] LABS: Band Neutrophils % 11 %; Basophils # (M) 0.12 k/uL (0-0.2); Eosinophils # (M) 0.12 k/uL (0-0.7); Lymphocytes # (M) 0.71 k/uL (1.0-4.8); Metamyelocytes # (M) 0.12 k/uL (0); Metamyelocytes % 1 %; Monocytes # (M) 0.83 k/uL (0-1.0); Myelocytes # (M) 0.24 k/uL (0); Myelocytes % 2 %; Neutrophils % (M) 74 %; Nucleated Red Blood Cells 0 /100 WBC (0-0); Total Cells Counted 200
[2020-12-09 12:43] LABS: Toxic Granulation Present; Toxic Vacuolation Present
[2020-12-09 12:44] LABS: Poikilocytosis (M) Present
[2020-12-09] MEDS ORDERED: AZITHROMYCIN 500 MG in SODIUM CHLORIDE 0.9% 250 ML IVPB STA (13:05)
[2020-12-09] MEDS ORDERED: PNEUMONIA PROTOCOL UTILIZED 1 EACH MISC PO PRN (13:05)
--- NOTE | 2020-12-09 13:38 | CT ---
EXAMINATION TYPE: CT chest angio for PE DATE OF EXAM: 12/09/2020 COMPARISON: 09/12/2020, 10/11/2020 HISTORY: 64-year-old male Cough, shortness of breath TECHNIQUE: Contiguous axial scanning of the chest performed with IV Contrast, patient injected with 1 00, wasted 46 ml mL of Isovue 370. Coronal/sagittal MIP reconstructions performed. CT DLP: 203.4 mGycm Automated exposure control for dose reduction was used. FINDINGS: Right anterior chest wall injection port with catheter tip at the cavoatrial junction. Heart normal s ize without pericardial effusion. Aorta normal caliber with mild atherosclerotic arch calcifications and conventional arch vessel branc young anatomy. Satisfactory opacification pulmonary arterial system. No pulmonary embolus visualized. Enlarging abnormal soft tissue encasing the right hilum. There is greater degree of complete encaseme nt of the right main pulmonary artery and proximal lobar branches. The remaining entirety of the righ t lower lobe pulmonary arterial system is encased. There is continued cut off at the bronchus interme dius but now complete opacification of the right lower lobe well without any significant volume loss. Extensive underlying pneumonia and tumor are suggested. In addition, there is enlarging thick walled irregular cavitary lesion of the posterior right upper l obe that appears contiguous with the right upper lobe bronchus. This measures at least 7.4 cm now jones lucia 4.0 cm on 10/01/2020. No consolidation extending to the periphery of the right upper lobe from here. Background mild emphysema. Some scattered patchy peripheral groundglass opacities in the left lung, for example, axial image 68, 72, 88, 108, 125. No pleural effusion. Indeterminate 1 cm subpleural nodule along the left heart margin, axial image 76 not clearly seen pre viously. Visualized upper abdomen may have a mildly enlarged 1.3 cm gastrohepatic ligament lymph node. Bones: Essentially upper thoracic kyphosis. Focal dextro convex curvature along the upper third thora cic spine. IMPRESSION: 1. NO PULMONARY EMBOLUS SEEN. 2. PROGRESSIVE NEOPLASTIC SOFT TISSUE ENCASEMENT OF THE RIGHT HILUM WITH CONTINUED CUTOFF OF THE BRON CHUS INTERMEDIUS. THERE IS NOW COMPLETE OPACIFICATION OF THE RIGHT LOWER LOBE BUT WITHOUT VOLUME LOSS . FINDINGS SUGGEST COMBINATION OF EXTENSIVE INFILTRATE/PNEUMONIA AND NEOPLASM FILLING THE RIGHT LOWER LOBE. 3. PROGRESSIVE ENLARGEMENT OF THE THICK WALLED CAVITARY PORTION OF THE NEOPLASM IN THE POSTERIOR RIGH T UPPER LOBE. THIS CONTINUES TO COMMUNICATE DIRECTLY WITH THE RIGHT UPPER LOBE BRONCHUS AND CURRENTLY MEASURES UP TO 7.4 CM VERSUS 4.0 CM, PREVIOUSLY. 4. NEW POSTOBSTRUCTIVE INFILTRATE/PNEUMONIA EXTENDING INTO THE PERIPHERY OF THE RIGHT UPPER LOBE. LELO E PATCHY GROUNDGLASS CHANGES IN THE PERIPHERY OF THE LEFT LUNG ALSO NOTED. NONSPECIFIC AREAS OF PNEUM ONITIS ARE SUGGESTED. CORRELATE TO EXCLUDE THE POSSIBILITY OF COVID. 5. A NEW 1 CM SUBPLEURAL NODULE LOCATED ALONG THE LEFT HEART MARGIN NOT CLEARLY SEEN PREVIOUSLY. POSS IBLE NEW CONTRALATERAL LUNG NODULE VERSUS MEDIASTINAL NODE. ATTENTION ON FOLLOW-UP.
[2020-12-09 13:51] LABS: INR 1.2 (<1.2); Partial Thromboplastin Time 27.2 sec (22.0-30.0); Prothrombin Time 12.1 sec (9.0-12.0)
[2020-12-09] MEDS ORDERED: VANCOMYCIN IV PER PHARMACY 1 EACH MISC MISCELLANE PRN (14:02)
[2020-12-09] MEDS ORDERED: VANCOMYCIN 1,000 MG in SODIUM CHLORIDE 0.9% 250 ML IVPB STA (14:06)
[2020-12-09] MEDS ORDERED: HYDROcodone/APAP 5-325MG 1 EACH TAB PO PRN (14:52)
[2020-12-09] MEDS ORDERED: LIDOCAINE-PRILOCAINE 2.5-2.5% CREAM 5 GM TUBE TOPICAL PRN (14:53)
[2020-12-09] MEDS ORDERED: IPRATROPIUM 0.5 MG/2.5 ML NEBU INHALATION PRN (14:54)
--- NOTE | 2020-12-09 15:52 | HP ---
HISTORY AND PHYSICAL DATE OF SERVICE: 12/09/2020 CHIEF COMPLAINT: Shortness of breath. HISTORY OF PRESENT ILLNESS: This 64-year-old gentleman with a past medical history of multiple medical problems including right lung cancer, COPD, hypothyroidism, small cell cancer, anxiety, depression, being followed by Dr. Montemayor and Dr. Coffey in the outpatient setting was receiving chemotherapy. The patient was due to chemotherapy today, but the patient was complaining of increased weakness, shortness of breath, cough, congestion, dehydration. Patient came to [facility] and admitted for further evaluation and treatment. The patient was extensively evaluated. WBC 11.8 and lactic acid 2.5. COVID-19 was negative. However the patient had chest x-ray showed significant lesions on the right side and chest CTA was also done showed no evidence of any pulmonary embolism with progressive neoplasm soft tissue encasement in the right hilum with continued cutoff of the bronchus intermedius and complete opacification of right lower lobe but without any volume loss, extensive infiltrate, pneumonia, neoplasm, and postobstructive pneumonia . Patient admitted for further evaluation and treatment. There is no history of any fever or rigors. No history of headache, loss of consciousness, or seizures at this time. PAST MEDICAL HISTORY: History of COPD, hypothyroidism, non-small cell lung cancer, bilaterally chemoradiation, anxiety, depression. MEDICATIONS: Medications prior to admission include: 1. prednisone. 2. B complex. 3. Stiolto. 4. EMLA cream. 5. Synthroid. 6. [place]. 7. Mucinex. 8. Vitamin D3. 9. Vitamin C. 10.Augmentin. 11.ProAir HFA. ALLERGIES: ADHESIVE TAPES. FAMILY HISTORY: History of CAD in the family. SOCIAL HISTORY: History of smoking, continued ongoing. REVIEW OF SYSTEMS: ENT: No diminished hearing or diminished vision. CARDIOVASCULAR SYSTEM: As mentioned earlier. RESPIRATORY SYSTEM: As mentioned earlier. GI: No nausea. : No dysuria. NERVOUS SYSTEM: No numbness, weakness. ALLERGY/IMMUNOLOGY: No asthma. MUSCULOSKELETAL: As mentioned earlier. HEMATOLOGY/ONCOLOGY: As mentioned earlier. ENDOCRINE: No history of diabetes. Hypothyroidism present. CONSTITUTIONAL: As mentioned earlier. DERMATOLOGY: Negative. RHEUMATOLOGY: Negative. PSYCHIATRY: As mentioned earlier. PHYSICAL EXAMINATION: The patient is alert and oriented x3. Pulse is 116, blood pressure 127/92, respiration 20, temperature 97.9, T-max 102 degrees Fahrenheit, pulse ox 94% on 3 L. HEENT: Conjunctivae normal. NECK: No jugular venous distention. CARDIOVASCULAR: S1, S2 muffled. RESPIRATORY: Breath sounds diminished at the bases. A few scattered rhonchi and crackles. ABDOMEN: Soft, nontender. LEGS: No edema. No swelling. NERVOUS SYSTEM: Higher functions as mentioned earlier. Moves all 4 limbs. No focal motor or sensory deficits. LYMPHATICS: No lymphadenopathy of the neck, axillae or groin. SKIN: No ulcer, rash or bleeding. JOINTS: No active deforming arthropathy. LABS: WBC 11.8, hemoglobin 11.7. Sodium is 133. Lactic acid is 2.5. Other labs. Chest CTA and chest x-ray personally reviewed, the findings noted. ASSESSMENT: 1. Right-sided postobstructive pneumonia with possible sepsis, present on admission. 2. Right-sided non-small cell lung cancer. 3. History of chronic obstructive pulmonary disease. 4. History of prophylactic brain radiation. 5. On chemotherapy. 6. Anxiety, depression. 7. History of nicotine dependence. 8. Increased WBC. 9. Anemia, normocytic anemia of malignancy. 10.Hyponatremia. 11.Elevated lactic acid secondary to sepsis. 12.Hypoalbuminemia with severe protein calorie malnutrition. RECOMMENDATIONS AND DISCUSSION: This 64-year-old gentleman presented with multiple complex medical issues, we will monitor the patient closely. continue the current medications, continues symptomatic treatment. Will recommend empiric antibiotics. Follow the cultures. COVID-19 has been negative. Pulmonary consultation. Hematology/Oncology consultation. Resume the home medications. DVT prophylaxis. bronchodilators. Prognosis guarded because of multiple complex medical issues. Further recommendations to follow. A copy of dictation forwarded to Dr. Montemayor who is the primary physician. MMODL / IJN: [id number] / DOMINIQUE
[2020-12-09] MEDS ORDERED: EPINEPHrine 10 ML SYRINGE (0.1 MG/ML) ONE (18:32)
--- NOTE | 2020-12-09 19:01 | P.PN ---
Progress Note - Text Progress Note Date: 12/09/20 I responded to the CODE BLUE called on patient around 1830. Upon arrival to the room, patient was covered in blood and was struggling to breathe. Nursing staff informed me that patient started coughing up a lot of blood and was having difficulty breathing. Patient was almost obtunded at the time of my arrival. Anesthesia at bedside attempt to intubate the patient. I asked nursing staff to feel a pulse and there was no pulse so chest compression was started. There was uncertainty about the CODE STATUS of the patient says that outside the room and called his immediately and updated her about his current guarded condition and cardiac arrest. She told me that patient has always said that he does want to be DO NOT RESUSCITATE/DO NOT INTUBATE. I explained to her that we can stop resuscitation effort at this time and make sure he is comfortable and she agreed to that. I asked nursing staff to stop chest compression and sewn after patient was in asystole with no pulse. I also discussed the patient's condition with the attending physician who was on the floor at the time of the CODE BLUE and he informed me that the patient is a DO NOT RESUSCITATE but orders from ER report in the computer as patient is full code. He was also updated about the CODE BLUE event
[2020-12-09 19:43] VITALS: TEMP 98.5
[2020-12-09 19:44] VITALS: RESP 18
[2020-12-09 19:47] VITALS: BP 91/49; PULSE 84
[2020-12-09] MEDS ORDERED: HEPARIN SODIUM,PORCINE 5,000 UNIT/ML 1 ML VIAL SQ SCH (21:00)
[2020-12-09] MEDS ORDERED: MELOXICAM 7.5 MG TAB PO SCH (21:00)
[2020-12-09] MEDS ORDERED: PIPERACILLIN-TAZOBACTAM 3.375 GM in SODIUM CHLORIDE 0.9% 100 ML IVPB SCH (22:00)
[2020-12-10] MEDS ORDERED: VANCOMYCIN 1,000 MG in SODIUM CHLORIDE 0.9% 250 ML IVPB SCH (06:00)
[2020-12-10] MEDS ORDERED: LEVOTHYROXINE 25 MCG TAB PO SCH (06:30)
[2020-12-10] MEDS ORDERED: IPRATROPIUM 0.5 MG/2.5 ML NEBU INHALATION SCH (08:00)
[2020-12-10] MEDS ORDERED: FORMOTEROL FUMARATE 20 MCG/2 ML NEBU INHALATION SCH (08:00)
[2020-12-10] MEDS ORDERED: guaiFENesin 600 MG TABLET.ER PO SCH (09:00)
[2020-12-10] MEDS ORDERED: ASCORBIC ACID 500 MG TAB PO SCH (09:00)
[2020-12-10] MEDS ORDERED: predniSONE 20 MG TAB PO SCH (09:00)
[2020-12-10] MEDS ORDERED: NON FORMULARY DRUG (Vitamin B Complex [Vitamin B Complex] 1 EACH Capsule) PO SCH (09:00)
[2020-12-10] MEDS ORDERED: NON FORMULARY DRUG (Tiotropium Br/Olodaterol Hcl [Stiolto Respimat Inhal Spray] 4 GM Mist. INHALATION SCH (09:00)
[2020-12-10] MEDS ORDERED: NICOTINE 14MG/24HR PATCH TRANSDERM SCH (09:00)
[2020-12-10] MEDS ORDERED: ZINC SULFATE 220 MG CAP PO SCH (09:00)
[2020-12-10] MEDS ORDERED: PSEUDOEPHEDRINE 12HR 120 MG TABLET.ER PO SCH (09:00)
[2020-12-10] MEDS ORDERED: CHOLECALCIFEROL 25 MCG (1000 IU) TABLET PO SCH (09:00)
[2020-12-10] MEDS ORDERED: AZITHROMYCIN 500 MG in SODIUM CHLORIDE 0.9% 250 ML IVPB SCH (16:00)
--- NOTE | 2020-12-10 21:50 | DS ---
DISCHARGE SUMMARY PRIMARY CAUSE OF : Right-sided [id number] lung cancer. OTHER DIAGNOSES: 1. Right-sided postobstructive pneumonia with possible sepsis, present on admission. 2. History of chronic obstructive pulmonary disease. 3. History of prophylactic brain radiation. 4. On chemotherapy. 5. Anxiety, depression. 6. History of nicotine dependence. 7. Increased white count. 8. Anemia, normocytic anemia of malignancy. 9. Hyponatremia. 10.Elevated lactic acid secondary to sepsis. 11.Hypoalbuminemia with severe protein-calorie malnutrition. HISTORY OF PRESENT ILLNESS: This 64-year-old gentleman with a past medical history of multiple medical problems being followed by Dr. Montemayor and Dr. Coffey in the outpatient setting was receiving radiation therapy. Patient was admitted with features of postobstructive pneumonia and sepsis. The patient was started on broad-spectrum IV antibiotics. However, the patient had episodes of severe hemoptysis, and subsequently the patient went into cardiorespiratory arrest and succumbed to the above-mentioned illnesses. The prognosis was extremely guarded throughout the hospitalization. Please refer to the ER notes, other consultations and progress notes and staff notes for further details. Please also refer to the medication sheet for list of medications. As mentioned earlier, the prognosis remained extremely guarded throughout the hospitalization because of the above-mentioned multiple complex medical issues. MMODL / IJN: [id number] /
== END 2020-12-09 21:52 | disposition expired | DRG 871 ==
LOC: EC 10:54 → 5NMEDONC 13:08
PROVIDERS: ADMIT Hospitalist; ATTEND Hospitalist
PROC: 5A12012 Performance of Cardiac Output, Single, Manual (ICD-10-PCS; principal; 2020-12-09)
DX: A41.9 Sepsis, unspecified organism (principal); E43 Unspecified severe protein-calorie malnutrition; J18.8 Other pneumonia, unspecified organism; Z68.1 Body mass index [BMI] 19.9 or less, adult; R04.2 Hemoptysis; C34.92 Malignant neoplasm of unspecified part of left bronchus or lung; C34.91 Malignant neoplasm of unspecified part of right bronchus or lung; E87.1 Hypo-osmolality and hyponatremia; J44.0 Chronic obstructive pulmonary disease with (acute) lower respiratory infection; E87.2 Acidosis; I46.8 Cardiac arrest due to other underlying condition; D63.0 Anemia in neoplastic disease; Z87.891 Personal history of nicotine dependence; E03.9 Hypothyroidism, unspecified; E86.0 Dehydration; F32.9 Major depressive disorder, single episode, unspecified; F41.9 Anxiety disorder, unspecified; T45.1X5A Adverse effect of antineoplastic and immunosuppressive drugs, initial encounter; E88.09 Other disorders of plasma-protein metabolism, not elsewhere classified; Z20.822 Contact with and (suspected) exposure to COVID-19; Z66 Do not resuscitate; Z79.1 Long term (current) use of non-steroidal anti-inflammatories (NSAID); Z79.52 Long term (current) use of systemic steroids; Z79.890 Hormone replacement therapy; Z82.49 Family history of ischemic heart disease and other diseases of the circulatory system; Z92.3 Personal history of irradiation; Z79.899 Other long term (current) drug therapy
CPT/HCPCS: 36415; 71046; 71275; 80053; 81001; 83605; 83735; 83880; 84484; 85025; 85610; 85730; 87040; 87635; 93005; 94640; 94760; 96361; 96365; 99285